=== PATIENT | female | born 1970 | race Caucasian/White ===

== ENCOUNTER 2022-08-17 13:55 | Inpatient (IN) | payer MEDICARE, OTHER ==
[2022-08-17] MEDS ORDERED: IPRATROPIUM-ALBUTEROL 3 ML NEB INHALATION STA (14:06)
[2022-08-17] MEDS ORDERED: ALPRAZolam 0.5 MG TAB PO STA (14:08)
--- NOTE | 2022-08-17 14:09 | ED ---
General Adult HPI - General Chief complaint: Shortness of Breath Stated complaint: SOB Time Seen by Provider: 08/17/22 13:57 Source: patient, RN notes reviewed Mode of arrival: EMS Limitations: no limitations - History of Present Illness Initial comments: Patient is a pleasant 52-year-old female presenting to the emergency department with concerns with difficulty breathing. Patient has history of COPD with similar symptoms. Patient does have cough with green sputum. No fever. Patient had slight Medrol and 2 nebulizer treatments by EMS prior to arrival with some improvement. Patient does feel anxious. - Related Data Home Medications Medication Instructions Recorded Confirmed ALPRAZolam [Xanax] 1 mg PO BID PRN 08/17/22 08/17/22 Albuterol Inhaler [Ventolin Hfa 1 - 2 puff INHALATION RT-Q4H PRN 08/17/22 Inhaler] Fexofenadine HCl [Elba Allergy] 180 mg PO DAILY PRN 08/17/22 08/17/22 Ipratropium-Albuterol Nebulize 3 ml INHALATION RT-QID PRN 08/17/22 08/17/22 [Duoneb 0.5 mg-3 mg/3 ml Soln] Mometasone Furoate [Nasonex 50 MCG] 1 - 2 spr EA NOSTRIL BID PRN 08/17/22 08/17/22 Montelukast [Singulair] 10 mg PO HS 08/17/22 08/17/22 Allergies Allergy/AdvReac Type Severity Reaction Status Date / Time No Known Allergies Allergy Verified 08/17/22 14:29 Review of Systems ROS Statement: Those systems with pertinent positive or pertinent negative responses have been documented in the HPI. ROS Other: All systems not noted in ROS Statement are negative. Constitutional: Denies: fever Eyes: Denies: eye pain ENT: Denies: ear pain Respiratory: Reports: as per HPI, cough, dyspnea Cardiovascular: Denies: chest pain Endocrine: Denies: fatigue Gastrointestinal: Denies: abdominal pain Genitourinary: Denies: dysuria Musculoskeletal: Denies: back pain Skin: Denies: rash Neurological: Denies: weakness Psychiatric: Reports: as per HPI, anxiety Past Medical History Past Medical History: Asthma, COPD History of Any Multi-Drug Resistant Organisms: None Reported Past Surgical History: Tonsillectomy, Tubal Ligation Past Psychological History: Anxiety Smoking Status: Never smoker Past Alcohol Use History: None Reported Past Drug Use History: None Reported General Exam Limitations: no limitations General appearance: alert Head exam: Present: normocephalic Eye exam: Present: normal appearance ENT exam: Present: normal oropharynx Neck exam: Present: normal inspection Respiratory exam: Present: wheezes, decreased breath sounds, other (Purse lipped breathing) Cardiovascular Exam: Present: tachycardia GI/Abdominal exam: Present: soft. Absent: tenderness Extremities exam: Present: normal inspection Neurological exam: Present: alert Psychiatric exam: Present: normal affect, normal mood Skin exam: Present: normal color Course Vital Signs 08/17/22 08/17/22 08/17/22 13:59 14:03 14:19 Temperature 98.5 F Pulse Rate 140 H 129 H Respiratory 32 H Rate Blood Pressure 137/102 O2 Sat by Pulse 89 L 94 L Oximetry Medical Decision Making - Medical Decision Making Patient reevaluated and mildly improved. Dr. Bianchi has been paged for admission covering hospital call. - Lab Data Result diagrams: 08/17/22 14:19 08/17/22 14:19 Lab Results 08/17/22 08/17/22 08/17/22 Range/Units 14:19 14:19 14:19 WBC 23.7 H (3.8-10.6) k/uL RBC 3.88 (3.80-5.40) m/uL Hgb 11.4 (11.4-16.0) gm/dL Hct 34.7 (34.0-46.0) % MCV 89.5 (80.0-100.0) fL MCH 29.4 (25.0-35.0) pg MCHC 32.8 (31.0-37.0) g/dL RDW 14.2 (11.5-15.5) % Plt Count 481 H (150-450) k/uL MPV 7.5 Neutrophils % 89 % Lymphocytes % 6 % Monocytes % 3 % Eosinophils % 1 % Basophils % 0 % Neutrophils # 21.2 H (1.3-7.7) k/uL Lymphocytes # 1.5 (1.0-4.8) k/uL Monocytes # 0.7 (0-1.0) k/uL Eosinophils # 0.2 (0-0.7) k/uL Basophils # 0.1 (0-0.2) k/uL Hypochromasia Slight PT 11.4 (9.0-12.0) sec INR 1.1 (<1.2) APTT 24.8 (22.0-30.0) sec Sodium 135 L (137-145) mmol/L Potassium 3.7 (3.5-5.1) mmol/L Chloride 95 L (98-107) mmol/L Carbon Dioxide 26 (22-30) mmol/L Anion Gap 14 mmol/L BUN 7 (7-17) mg/dL Creatinine 0.45 L (0.52-1.04) mg/dL Est GFR (CKD-EPI)AfAm >90 (>60 ml/min/1.73 sqM) Est GFR (CKD-EPI)NonAf >90 (>60 ml/min/1.73 sqM) Glucose 83 (74-99) mg/dL Plasma Lactic Acid Adrian (0.7-2.0) mmol/L Calcium 8.2 L (8.4-10.2) mg/dL Total Bilirubin 0.6 (0.2-1.3) mg/dL AST 28 (14-36) U/L ALT 32 (4-34) U/L Alkaline Phosphatase 108 (38-126) U/L Total Protein 6.2 L (6.3-8.2) g/dL Albumin 3.2 L (3.5-5.0) g/dL Coronavirus (PCR) (Not Detectd) Influenza Type A RNA (Not Detectd) Influenza Type B (PCR) (Not Detectd) 08/17/22 08/17/22 08/17/22 Range/Units 14:19 14:19 14:19 WBC (3.8-10.6) k/uL RBC (3.80-5.40) m/uL Hgb (11.4-16.0) gm/dL Hct (34.0-46.0) % MCV (80.0-100.0) fL MCH (25.0-35.0) pg MCHC (31.0-37.0) g/dL RDW (11.5-15.5) % Plt Count (150-450) k/uL MPV Neutrophils % % Lymphocytes % % Monocytes % % Eosinophils % % Basophils % % Neutrophils # (1.3-7.7) k/uL Lymphocytes # (1.0-4.8) k/uL Monocytes # (0-1.0) k/uL Eosinophils # (0-0.7) k/uL Basophils # (0-0.2) k/uL Hypochromasia PT (9.0-12.0) sec INR (<1.2) APTT (22.0-30.0) sec Sodium (137-145) mmol/L Potassium (3.5-5.1) mmol/L Chloride (98-107) mmol/L Carbon Dioxide (22-30) mmol/L Anion Gap mmol/L BUN (7-17) mg/dL Creatinine (0.52-1.04) mg/dL Est GFR (CKD-EPI)AfAm (>60 ml/min/1.73 sqM) Est GFR (CKD-EPI)NonAf (>60 ml/min/1.73 sqM) Glucose (74-99) mg/dL Plasma Lactic Acid Adrian 0.8 (0.7-2.0) mmol/L Calcium (8.4-10.2) mg/dL Total Bilirubin (0.2-1.3) mg/dL AST (14-36) U/L ALT (4-34) U/L Alkaline Phosphatase (38-126) U/L Total Protein (6.3-8.2) g/dL Albumin (3.5-5.0) g/dL Coronavirus (PCR) Not Detected (Not Detectd) Influenza Type A RNA Not Detected (Not Detectd) Influenza Type B (PCR) Not Detected (Not Detectd) - Radiology Data Radiology results: image reviewed (Chest x-ray shows interstitial changes) Disposition Clinical Impression: Acute exacerbation of chronic obstructive pulmonary disease Disposition: ADMITTED IP TO THIS HOSP Is patient prescribed a controlled substance at d/c from ED?: No Referrals: None,Stated [Primary Care Provider] - 1-2 days Time of Disposition: 15:17
[2022-08-17 14:38] LABS: Basophils # (A) 0.1 k/uL (0-0.2); Basophils % (A) 0 %; Eosinophils # (A) 0.2 k/uL (0-0.7); Eosinophils % (A) 1 %; HCT 34.7 % (34.0-46.0); HGB 11.4 gm/dL (11.4-16.0); Hypochromasia Slight; Lymphocytes # (A) 1.5 k/uL (1.0-4.8); Lymphocytes % (A) 6 %; MCH 29.4 pg (25.0-35.0); MCHC 32.8 g/dL (31.0-37.0); MCV 89.5 fL (80.0-100.0); Mean Platelet Volume 7.5; Monocytes # (A) 0.7 k/uL (0-1.0); Monocytes % (A) 3 %; Neutrophils # (A) 21.2 k/uL (1.3-7.7); Neutrophils % (A) 89 %; Platelet Count 481 k/uL (150-450); RBC 3.88 m/uL (3.80-5.40); RDW 14.2 % (11.5-15.5); WBC 23.7 k/uL (3.8-10.6)
[2022-08-17 14:49] LABS: INR 1.1 (<1.2); Partial Thromboplastin Time 24.8 sec (22.0-30.0); Prothrombin Time 11.4 sec (9.0-12.0)
--- NOTE | 2022-08-17 14:49 | XR ---
EXAMINATION TYPE: XR chest 2V DATE OF EXAM: 08/17/2022 2:42 PM COMPARISON: None TECHNIQUE: XR chest 2V Frontal and lateral views of the chest. CLINICAL INDICATION:Female, 52 years old with history of difficulty breathing; FINDINGS: Lungs/Pleura: Prominent interstitial lung markings are seen scattered throughout the lungs. No eviden ce of focal consolidation, pneumothorax or pleural effusion. Flattening of the hemidiaphragms. Pulmonary vascularity: Unremarkable. Heart/mediastinum: Cardiomediastinal silhouette is unremarkable. Musculoskeletal: Multiple level degenerative disc disease changes seen throughout the spine. Other findings: None Lines/Tubes: Endotracheal tube with distal tip xx cm above the miranda Nasogastric tube with its distal tip and side-port projecting under the diaphragm. IMPRESSION: 1. Prominent interstitial lung markings which can be seen with pulmonary edema versus atypical pneum onia versus other etiologies. 2. COPD changes.
[2022-08-17 14:50] LABS: ALT 32 U/L (4-34); AST 28 U/L (14-36); African American GFR (CKD) >90 (>60 ml/min/1.73 sqM); Albumin 3.2 g/dL (3.5-5.0); Alkaline Phosphatase 108 U/L (38-126); Anion Gap 14 mmol/L; Blood Urea Nitrogen 7 mg/dL (7-17); Calcium 8.2 mg/dL (8.4-10.2); Carbon Dioxide 26 mmol/L (22-30); Chloride 95 mmol/L (98-107); Glucose 83 mg/dL (74-99); Non-African American GFR(CKD) >90 (>60 ml/min/1.73 sqM); Potassium 3.7 mmol/L (3.5-5.1); Sodium 135 mmol/L (137-145); Total Bilirubin 0.6 mg/dL (0.2-1.3); Total Protein 6.2 g/dL (6.3-8.2)
[2022-08-17] MEDS ORDERED: IPRATROPIUM-ALBUTEROL 3 ML NEB INHALATION PRN ×2 (15:18→17:00)
[2022-08-17] MEDS ORDERED: ACETAMINOPHEN TAB 325 MG TAB PO PRN (15:18)
[2022-08-17] MEDS ORDERED: NALOXONE 0.4 MG/ML 1 ML VIAL IVP PRN (15:18)
[2022-08-17] MEDS: AZITHROMYCIN 500 MG in SODIUM CHLORIDE 0.9% 250 ML IVPB SCH (15:50)
[2022-08-17] MEDS ORDERED: LORATADINE 10 MG TAB PO PRN (17:00)
[2022-08-17] MEDS: methylPREDNISolone SOD SUCCI 125 MG/2 ML VIAL IV SCH (18:08)
[2022-08-17] MEDS: IPRATROPIUM-ALBUTEROL 3 ML NEB INHALATION SCH ×2 (19:47→19:48)
[2022-08-17] MEDS: MONTELUKAST 10 MG TAB PO SCH (21:33)
--- NOTE | 2022-08-17 22:20 | CT ---
EXAMINATION TYPE: CT chest wo con DATE OF EXAM: 08/17/2022 COMPARISON: None HISTORY: COPD CT DLP: 245 mGycm Automated exposure control for dose reduction was used. Images obtained from the thoracic inlet through the diaphragm with no contrast. There is coarse reticular nodular infiltrate in the periphery of both lungs. Heart size is normal. Th ere is pulmonary hyperinflation and flattening of the diaphragm. There is irregular nodular pleural t hickening in the lung apices bilaterally. There there is more noticeable patchy right middle lobe and lingula infiltrate. There is no mediastinal adenopathy. There are no hilar masses. No pleural effusion. The thoracic spine is intact. No compression fracture. Sternum is intact no evidence of rib fracture. IMPRESSION: Extensive reticular nodular infiltrates. COPD. There is probably pulmonary interstitial fibrosis. No discrete suspicious mass.
[2022-08-18] MEDS: methylPREDNISolone SOD SUCCI 125 MG/2 ML VIAL IV SCH ×4 (00:49→17:01)
--- NOTE | 2022-08-18 04:40 | HP ---
HISTORY AND PHYSICAL HISTORY OF PRESENT ILLNESS: A 52-year-old white female came in with concerns of difficulty breathing, history of COPD, green-yellow phlegm. No fever. She could barely breathe. Walked a few steps in the house with her home oxygen, she states, 10 years ago, at which time she came to the hospital. Does not have COVID. She is admitted with pneumonia. Chest x-ray shows possible pneumonia. HOME MEDICATIONS: 1. Xanax 1 mg b.i.d. 2. Elba 180 daily. 3. DuoNeb q.i.d. 4. Nasonex. 5. Singulair. REVIEW OF SYSTEMS: Fourteen-point review of systems otherwise is negative. PAST MEDICAL HISTORY: Asthma, COPD. PAST SURGICAL HISTORY: Tonsillectomy, tubal ligation. PHYSICAL EXAMINATION: VITAL SIGNS: Temperature 98.5, pulse 129 to 148, respiratory rate 30 to 32, blood pressure 137/102, O2 was 89% in remission, 94% on 2 L. GENERAL: She is a well-developed, well-nourished white female. LUNGS: Scattered rhonchi and wheeze. Shows some mild stridor. CARDIOVASCULAR: S1, S2. PSYCH: Slightly anxious. GI: Soft, nontender. EXTREMITIES: No cyanosis, clubbing, or edema. LABS: White count is 23.7, BUN is 7, creatinine 0.45, hemoglobin is 9.4, albumin is 3.2. ASSESSMENT: Acute chronic obstructive pulmonary disease exacerbation, probable pneumonia. CT scan of lungs. Continue broad-spectrum antibiotics and steroids. Pulmonary consult and Infectious Disease consult. MMODL / IJN: [id number] /
[2022-08-18] MEDS: IPRATROPIUM-ALBUTEROL 3 ML NEB INHALATION SCH ×4 (07:40→19:53)
[2022-08-18] MEDS: AZITHROMYCIN 500 MG in SODIUM CHLORIDE 0.9% 250 ML IVPB SCH (09:15)
[2022-08-18 10:37] LABS: Basophils # (A) 0.08 X 10*3/uL (0.00-0.10); Basophils % (A) 0.4 %; Eosinophils # (A) 0 X 10*3/uL (0.04-0.35); Eosinophils % (A) 0 %; HCT 38.4 % (37.2-46.3); HGB 11.5 g/dL (12.0-15.0); Immature Grans, Automated 2.1 %; Lymphocytes # (A) 1.43 X 10*3/uL (0.90-5.00); MCH 27.7 pg (27.0-32.0); MCHC 29.9 g/dL (32.0-37.0); MCV 92.5 fL (80.0-97.0); Mean Platelet Volume 10.2 fL (9.5-12.2); Monocytes # (A) 0.18 X 10*3/uL (0.20-1.00); Monocytes % (A) 0.9 %; NRBC Per 100 WBC 0 /100 WBCS (0.0-0.0); Neutrophils # (A) 18.45 X 10*3/uL (1.80-7.70); Neutrophils % (A) 89.6 %; Platelet Count 535 X 10*3/uL (140-440); RBC 4.15 X 10*6/uL (4.10-5.20); RDW 14.8 % (11.5-14.5); WBC 20.57 X 10*3/uL (4.50-10.00)
[2022-08-18 10:52] LABS: ALT 40 U/L (8-44); AST 36 U/L (13-35); Albumin 3.5 g/dL (3.8-4.9); Albumin/Globulin Ratio 1.04 (1.60-3.17); Alkaline Phosphatase 124 U/L (41-126); BUN/Creat Ratio 18.88 Ratio (12.00-20.00); Blood Urea Nitrogen 11.8 mg/dL (9.0-27.0); Calcium 9.4 mg/dL (8.7-10.3); Carbon Dioxide 28.3 mmol/L (20.0-27.5); Chloride 97 mmol/L (96-109); Globulin 3.4 g/dL (1.6-3.3); Glucose 119 mg/dL (70-110); Non-African American GFR(CKD) 102.7 (60.0-200.0); Potassium 5.1 mmol/L (3.5-5.5); Sodium 137 mmol/L (135-145); Total Bilirubin <0.15 mg/dL (0.30-1.20); Total Protein 6.8 g/dL (6.2-8.2)
[2022-08-18] MEDS ORDERED: VANCOMYCIN IV PER PHARMACY 1 EACH MISC MISCELLANE PRN (11:10)
[2022-08-18] MEDS ORDERED: VANCOMYCIN 1,250 MG in SODIUM CHLORIDE 0.9% 250 ML IVPB SCH (12:00)
[2022-08-18] MEDS: ALPRAZolam 1 MG TAB PO PRN (13:12)
--- NOTE | 2022-08-18 15:22 | P.CNPUL ---
History of Present Illness Consult date: 08/18/22 Requesting physician: Qasim Bianchi Reason for consult: dyspnea, COPD Chief complaint: Shortness of breath, cough, congestion History of present illness: This is a very pleasant 52-year-old female patient with no current primary care provider. She has a history of COPD, former smoking. She does have a nebulizer at home and albuterol rescue inhaler. This was provided by an urgent care visit in the past. Recently she had been exposed to many grandchildren who have been coughing and congested. She developed increasing shortness of breath, cough congestion dyspnea on exertion. Productive cough of green thick sputum. She presented to the emergency room yesterday for the same. Chest x-ray reveals prominent interstitial lung markings scattered throughout the lungs. No evidence of focal consolidation, pneumothorax or pleural effusion. Flattening of the hemidiaphragms with COPD changes. Computed tomography scan of the chest without contrast revealed extensive reticulonodular infiltrates. COPD. Possible pulmonary interstitial fibrosis. No discrete suspicious masses. Blood cultures are revealing no growth. One set of blood cultures was positive for coag-negative staph. White count 20.5. Hemoglobin 11.5. Platelets 535. Sodium 137. Potassium 5.1. BUN 12. Creatinine 0.6. AST 26. ALT 40. Pro- calcitonin 0.15. Chronic virus not detected. Influenza screen negative. She was initiated on vancomycin and DuoNeb inhalations. She is seen today in consultation on the regular medical floor. She is currently resting comfortably in bed. Awake and alert in no acute distress. She is maintaining O2 saturations in the mid 90s on 3 L/m per nasal cannula. Afebrile. Hemodynamically stable. Feeling a bit better today compared to yesterday. Not quite back to her baseline. Review of Systems REVIEW OF SYSTEMS: CONSTITUTIONAL: Denies any recent significant weight loss or weight gain. EYES: Denies change in vision. EARS, NOSE, MOUTH, THROAT: Denies headaches, denies sore throat. CARDIOVASCULAR: Denies chest pain, palpitations or syncopal episodes. RESPIRATORY: Positive for shortness of breath, cough, congestion no hemoptysis. GASTROINTESTINAL: Denies change in appetite, denies abdominal pain GENITOURINARY: Denies hematuria, denies infections. MUSKULOSKELETAL: Denies pain, denies swelling. INTEGUMENTARY: Denies rash, denies eczema. NEUROLOGICAL: Denies recent memory loss, no recent seizure activity. PSYCHIATRIC: Denies anxiety, denies depression. HEMATOLOGIC/LYMPHATIC: Denies anemia, denies enlarged lymph nodes. Past Medical History Past Medical History: Asthma, COPD History of Any Multi-Drug Resistant Organisms: None Reported Past Surgical History: Tonsillectomy, Tubal Ligation Past Anesthesia/Blood Transfusion Reactions: No Reported Reaction Past Psychological History: Anxiety Smoking Status: Former smoker Past Alcohol Use History: None Reported Past Drug Use History: None Reported Medications and Allergies Home Medications Medication Instructions Recorded Confirmed Type ALPRAZolam [Xanax] 1 mg PO BID PRN 08/17/22 08/17/22 History Albuterol Inhaler [Ventolin Hfa 1 - 2 puff INHALATION RT-Q4H PRN 08/17/22 08/17/22 History Inhaler] Fexofenadine HCl [Elba Allergy] 180 mg PO DAILY PRN 08/17/22 08/17/22 History Ipratropium-Albuterol Nebulize 3 ml INHALATION RT-QID PRN 08/17/22 08/17/22 History [Duoneb 0.5 mg-3 mg/3 ml Soln] Mometasone Furoate [Nasonex 50 MCG] 1 - 2 spr EA NOSTRIL BID PRN 08/17/22 08/17/22 History Montelukast [Singulair] 10 mg PO HS 08/17/22 08/17/22 History Allergies Allergy/AdvReac Type Severity Reaction Status Date / Time No Known Allergies Allergy Verified 08/17/22 14:29 Physical Exam Vitals: Vital Signs Temp Pulse Pulse Pulse Resp BP BP 08/18/22 13:57 97.8 F 120 H 18 121/69 08/18/22 11:53 96 08/18/22 11:48 92 08/18/22 07:56 96 08/18/22 07:46 97.4 F L 88 18 114/77 08/18/22 07:43 88 08/18/22 02:38 97.3 F L 84 17 147/71 08/17/22 21:00 97.5 F L 104 H 19 113/76 08/17/22 20:24 97.1 F L 105 H 19 107/68 08/17/22 20:03 106 H 08/17/22 19:49 102 H 08/17/22 17:33 111 H 20 110/77 08/17/22 15:52 120 H 24 121/73 Pulse Ox 08/18/22 13:57 95 08/18/22 11:53 08/18/22 11:48 08/18/22 07:56 08/18/22 07:46 96 08/18/22 07:43 97 08/18/22 02:38 98 08/17/22 21:00 96 08/17/22 20:24 96 08/17/22 20:03 08/17/22 19:49 08/17/22 17:33 94 L 08/17/22 15:52 95 Intake and Output 08/18/22 08/18/22 08/18/22 06:59 14:59 22:59 Other: # Voids 2 # Bowel Movements 1 GENERAL EXAM: Alert, pleasant 51-year-old female, on 3 L nasal cannula, comfortable in no apparent distress. HEAD: Normocephalic. EYES: Normal reaction of pupils, equal size. NOSE: Clear with pink turbinates. THROAT: No erythema or exudates. NECK: No masses, no JVD. CHEST: No chest wall deformity. LUNGS: Equal air entry with bilateral end-expiratory wheeze, few scattered rhonchi, diminished. CVS: S1 and S2 normal with no audible murmur, regular rhythm. ABDOMEN: No hepatosplenomegaly, normal bowel sounds, no guarding or rigidity. SPINE: No scoliosis or deformity SKIN: No rashes CENTRAL NERVOUS SYSTEM: No focal deficits, tone is normal in all 4 extremities. EXTREMITIES: There is no peripheral edema. No clubbing, no cyanosis. Peripheral pulses are intact. Results - Laboratory Findings CBC and BMP: 08/18/22 06:47 08/18/22 06:47 PT/INR, D-dimer PT 11.4 sec (9.0-12.0) 08/17/22 14:19 INR 1.1 (<1.2) 08/17/22 14:19 Abnormal lab findings: Abnormal Labs 08/17/22 08/17/22 08/17/22 14:19 14:19 14:19 WBC 23.7 H Hgb MCHC RDW Plt Count 481 H Immature Gran # Neutrophils # 21.2 H Monocytes # Eosinophils # Sodium 135 L Chloride 95 L Carbon Dioxide Creatinine 0.45 L Glucose Calcium 8.2 L Total Bilirubin AST Total Protein 6.2 L Albumin 3.2 L Globulin Albumin/Globulin Ratio Procalcitonin 0.15 H 08/18/22 08/18/22 06:47 06:47 WBC 20.57 H Hgb 11.5 L MCHC 29.9 L RDW 14.8 H Plt Count 535 H Immature Gran # 0.43 H Neutrophils # 18.45 H Monocytes # 0.18 L Eosinophils # 0 L Sodium Chloride Carbon Dioxide 28.3 H Creatinine Glucose 119 H Calcium Total Bilirubin <0.15 L AST 36 H Total Protein Albumin 3.5 L Globulin 3.4 H Albumin/Globulin Ratio 1.04 L Procalcitonin - Diagnostic Findings Chest x-ray: image reviewed CT scan - chest: image reviewed Assessment and Plan Assessment: Acute exacerbation of chronic obstructive pulmonary disease, complicated by purulent tracheobronchitis versus community-acquired pneumonia. Procalcitonin 0.15 Extensive reticulonodular infiltrates, possible underlying pulmonary interstitial fibrosis. No discrete suspicious mass One blood culture positive for coagulase-negative staph Former smoker Anxiety Plan: The patient was seen and evaluated Chest x-ray, CAT scan, labs and medications reviewed Continue with ceftriaxone and azithromycin Continue DuoNeb inhalations, add Symbicort, IV Solu-Medrol We'll plan for follow-up CAT scan of the chest in 3 months Plan for pulmonary function testing in the office We'll continue to follow and make further recommendations based on her clinical status I have personally seen and examined the patient, performed the documentation and the assessment and plan as written. Number of minutes spent on the visit: 20.
[2022-08-18] MEDS: SYMBICORT 160-4.5 MCG INHALER INHALATION SCH (19:53)
[2022-08-18] MEDS: MONTELUKAST 10 MG TAB PO SCH (20:55)
--- NOTE | 2022-08-18 23:00 | P.CONS ---
History of Present Illness - Reason for Consult Consult date: 08/18/22 Leukocytosis Requesting physician: Qasim Bianchi - Chief Complaint Shortness of breath and cough x few days - History of Present Illness Patient is a 52-year-old female with a past medical he significant for COPD patient presenting to the hospital for evaluation of difficulty breathing symptom has been going on for more than a week patient also have a cough which is moderate intensity has been constant with any sputum patient mention she did do some nebulizer treatment without any improvement with worsening of her symptoms the patient did present to the hospital on arrival to the ER the patient was afebrile and no fever have been recorded subsequently patient did remarkably 2000 with a left shift creatinine has been normal liver enzymes are normal patient did have a negative influenza and COVID PCR patient did have a chest x-ray prominent interstitial markings question of pulmonary edema versus atypical pneumonia COPD changes CT of the chest extensive reticulonodular infiltrate pulmonary fibrosis, infectious was consulted because of the positive blood cultures with ID sensitivities pending Review of Systems Positive point has been mentioned in the HPI rest of the systems are negative Past Medical History Past Medical History: Asthma, COPD History of Any Multi-Drug Resistant Organisms: None Reported Past Surgical History: Tonsillectomy, Tubal Ligation Past Anesthesia/Blood Transfusion Reactions: No Reported Reaction Past Psychological History: Anxiety Smoking Status: Former smoker Past Alcohol Use History: None Reported Past Drug Use History: None Reported Medications and Allergies Home Medications Medication Instructions Recorded Confirmed Type ALPRAZolam [Xanax] 1 mg PO BID PRN 08/17/22 08/17/22 History Albuterol Inhaler [Ventolin Hfa 1 - 2 puff INHALATION RT-Q4H PRN 08/17/22 08/17/22 History Inhaler] Fexofenadine HCl [Elba Allergy] 180 mg PO DAILY PRN 08/17/22 08/17/22 History Ipratropium-Albuterol Nebulize 3 ml INHALATION RT-QID PRN 08/17/22 08/17/22 History [Duoneb 0.5 mg-3 mg/3 ml Soln] Mometasone Furoate [Nasonex 50 MCG] 1 - 2 spr EA NOSTRIL BID PRN 08/17/22 08/17/22 History Montelukast [Singulair] 10 mg PO HS 08/17/22 08/17/22 History Allergies Allergy/AdvReac Type Severity Reaction Status Date / Time No Known Allergies Allergy Verified 08/17/22 14:29 Physical Exam Vitals: Vital Signs Temp Pulse Pulse Pulse Resp BP BP 08/18/22 07:56 96 08/18/22 07:46 97.4 F L 88 18 114/77 08/18/22 07:43 88 08/18/22 02:38 97.3 F L 84 17 147/71 08/17/22 21:00 97.5 F L 104 H 19 113/76 08/17/22 20:24 97.1 F L 105 H 19 107/68 08/17/22 20:03 106 H 08/17/22 19:49 102 H 08/17/22 17:33 111 H 20 110/77 08/17/22 15:52 120 H 24 121/73 08/17/22 14:19 129 H 08/17/22 14:03 08/17/22 13:59 98.5 F 140 H 32 H 137/102 Pulse Ox 08/18/22 07:56 08/18/22 07:46 96 08/18/22 07:43 97 08/18/22 02:38 98 08/17/22 21:00 96 08/17/22 20:24 96 08/17/22 20:03 08/17/22 19:49 08/17/22 17:33 94 L 08/17/22 15:52 95 08/17/22 14:19 08/17/22 14:03 94 L 08/17/22 13:59 89 L Intake and Output 08/17/22 08/18/22 08/18/22 22:59 06:59 14:59 Intake Total 10 Balance 10 Intake: IV 10 Invasive Line 1 10 Other: Voiding Method Toilet # Voids 2 # Bowel Movements 1 Weight 62.142 kg GENERAL DESCRIPTION: Middle-aged female lying in bed, no distress. No tachypnea or accessory muscle of respiration use. HEENT: Shows Pallor , no scleral icterus. Oral mucous membrane is dry. No pharyngeal erythema or thrush NECK: Trachea central, no thyromegaly. LUNGS: Unlabored breathing. Coarse breath sounds bilaterally. HEART: S1, S2, regular rate and rhythm. No loud murmur ABDOMEN: Soft, no tenderness , guarding or rigidity, no organomegaly EXTREMITIES: No edema of feet. SKIN: No rash, no masses palpable. NEUROLOGICAL: The patient is awake, alert, oriented x3, mood and affect normal. Results CBC & Chem 7: 08/18/22 06:47 08/19/22 06:35 Labs: Abnormal Lab Results - Last 24 Hours (Table) 08/17/22 08/17/22 08/17/22 Range/Units 14:19 14:19 14:19 WBC 23.7 H (3.8-10.6) k/uL Hgb (12.0-15.0) g/dL MCHC (32.0-37.0) g/dL RDW (11.5-14.5) % Plt Count 481 H (150-450) k/uL Immature Gran # (0.00-0.04) X 10*3/uL Neutrophils # 21.2 H (1.3-7.7) k/uL Monocytes # (0.20-1.00) X 10*3/uL Eosinophils # (0.04-0.35) X 10*3/uL Sodium 135 L (137-145) mmol/L Chloride 95 L (98-107) mmol/L Carbon Dioxide (20.0-27.5) mmol/L Creatinine 0.45 L (0.52-1.04) mg/dL Glucose (70-110) mg/dL Calcium 8.2 L (8.4-10.2) mg/dL Total Bilirubin (0.30-1.20) mg/dL AST (13-35) U/L Total Protein 6.2 L (6.3-8.2) g/dL Albumin 3.2 L (3.5-5.0) g/dL Globulin (1.6-3.3) g/dL Albumin/Globulin Ratio (1.60-3.17) g/dL Procalcitonin 0.15 H (0.02-0.09) ng/mL 08/18/22 08/18/22 Range/Units 06:47 06:47 WBC 20.57 H (3.8-10.6) k/uL Hgb 11.5 L (12.0-15.0) g/dL MCHC 29.9 L (32.0-37.0) g/dL RDW 14.8 H (11.5-14.5) % Plt Count 535 H (150-450) k/uL Immature Gran # 0.43 H (0.00-0.04) X 10*3/uL Neutrophils # 18.45 H (1.3-7.7) k/uL Monocytes # 0.18 L (0.20-1.00) X 10*3/uL Eosinophils # 0 L (0.04-0.35) X 10*3/uL Sodium (137-145) mmol/L Chloride (98-107) mmol/L Carbon Dioxide 28.3 H (20.0-27.5) mmol/L Creatinine (0.52-1.04) mg/dL Glucose 119 H (70-110) mg/dL Calcium (8.4-10.2) mg/dL Total Bilirubin <0.15 L (0.30-1.20) mg/dL AST 36 H (13-35) U/L Total Protein (6.3-8.2) g/dL Albumin 3.5 L (3.5-5.0) g/dL Globulin 3.4 H (1.6-3.3) g/dL Albumin/Globulin Ratio 1.04 L (1.60-3.17) g/dL Procalcitonin (0.02-0.09) ng/mL Microbiology - Last 24 Hours (Table) 08/17/22 14:19 Blood Culture Gram Stain - Preliminary Blood 08/17/22 14:19 Blood Culture Gram Stain - Preliminary Blood 08/17/22 14:19 Blood Culture - Final Blood 08/17/22 14:19 Blood Culture - Final Blood Assessment and Plan (1) Bacteremia Current Visit: Yes Status: Acute Code(s): R78.81 - BACTEREMIA SNOMED Code(s): 6224147 (2) Acute exacerbation of chronic obstructive pulmonary disease Current Visit: Yes Status: Acute Code(s): J44.1 - CHRONIC OBSTRUCTIVE PULMONARY DISEASE W (ACUTE) EXACERBATION SNOMED Code(s): 822853875 Plan: 1patient with a positive blood culture with gram-positive cocci in this patient was in the hospital with increasing shortness of breath and cough and some greenish sputum production concerning for possible pneumonia source however if finalized as coagulase-negative staph may be disregarded as a skin contamination. 2-we will obtain a sputum for gram stain and culture and repeat blood cultures document clearance of bacteremia 3-vancomycin pharmacy to dose target trough of 15 while watching kidney function and vancomycin trough closely We will follow on clinical condition and cultures to further adjust medication if needed Thank you for this consultation will follow this patient along with you Time with Patient: Greater than 30
[2022-08-19] MEDS: ALPRAZolam 1 MG TAB PO PRN (00:31)
[2022-08-19] MEDS: methylPREDNISolone SOD SUCCI 125 MG/2 ML VIAL IV SCH ×5 (00:31→23:17)
[2022-08-19] MEDS: SYMBICORT 160-4.5 MCG INHALER INHALATION SCH ×2 (07:13→20:53)
[2022-08-19] MEDS: IPRATROPIUM-ALBUTEROL 3 ML NEB INHALATION SCH ×4 (07:13→20:53)
[2022-08-19 07:15] LABS: African American GFR (CKD) >90 (>60 ml/min/1.73 sqM); Non-African American GFR(CKD) >90 (>60 ml/min/1.73 sqM)
[2022-08-19] MEDS: AZITHROMYCIN 500 MG in SODIUM CHLORIDE 0.9% 250 ML IVPB SCH (10:02)
[2022-08-19] MEDS: ALPRAZolam 1 MG TAB PO SCH ×3 (10:17→20:15)
[2022-08-19 10:39] LABS: C Reactive Protein 12.9 mg/dL (<1.0)
--- NOTE | 2022-08-19 12:19 | P.PN ---
Subjective Progress Note Date: 08/19/22 This is a very pleasant 52-year-old female patient with no current primary care provider. She has a history of COPD, former smoking. She does have a nebulizer at home and albuterol rescue inhaler. This was provided by an urgent care visit in the past. Recently she had been exposed to many grandchildren who have been coughing and congested. She developed increasing shortness of breath, cough congestion dyspnea on exertion. Productive cough of green thick sputum. She presented to the emergency room yesterday for the same. Chest x-ray reveals prominent interstitial lung markings scattered throughout the lungs. No evidence of focal consolidation, pneumothorax or pleural effusion. Flattening of the hemidiaphragms with COPD changes. Computed tomography scan of the chest without contrast revealed extensive reticulonodular infiltrates. COPD. Possible pulmonary interstitial fibrosis. No discrete suspicious masses. Blood cultures are revealing no growth. One set of blood cultures was positive for coag-negative staph. White count 20.5. Hemoglobin 11.5. Platelets 535. Sodium 137. Potassium 5.1. BUN 12. Creatinine 0.6. AST 26. ALT 40. Pro- calcitonin 0.15. Chronic virus not detected. Influenza screen negative. She was initiated on vancomycin and DuoNeb inhalations. She is seen today in consultation on the regular medical floor. She is currently resting comfortably in bed. Awake and alert in no acute distress. She is maintaining O2 saturations in the mid 90s on 3 L/m per nasal cannula. Afebrile. Hemodynamically stable. Feeling a bit better today compared to yesterday. Not quite back to her baseline. The patient is seen today to 2021 in follow-up on the regular medical floor. She is awake and alert in no acute distress. Breathing a bit better today compared to yesterday. Not quite back to her baseline. Maintaining O2 saturations in the 90s on 3 L/m per nasal cannula. She remains quite anxious stating that she does have issues with anxiety. Creatinine 0.53. C-reactive protein 12.9. Pro-calcitonin 0.10. Blood cultures reveal coagulase negative staph. She is continued on ceftriaxone and azithromycin. Maintained on Symbicort, DuoNeb inhalations, IV Solu-Medrol, Singulair. Xanax as needed. Objective - Vital Signs Vital signs: Vital Signs Temp 97.5 F L 10/19/22 08:00 Pulse 94 08/19/22 11:13 Resp 17 08/19/22 08:00 BP 129/87 08/19/22 08:00 Pulse Ox 95 08/19/22 09:00 FiO2 Intake & Output 08/18/22 08/19/22 08/19/22 18:59 06:59 18:59 Other: # Voids 2 3 - Exam GENERAL EXAM: Alert, very pleasant 52-year-old female, 3 L nasal cannula, anxious, comfortable in no apparent distress. HEAD: Normocephalic. EYES: Normal reaction of pupils, equal size. NOSE: Clear with pink turbinates. THROAT: No erythema or exudates. NECK: No masses, no JVD. CHEST: No chest wall deformity. LUNGS: Equal air entry with bilateral end expiratory wheeze, diminished. CVS: S1 and S2 normal with no audible murmur, regular rhythm. ABDOMEN: No hepatosplenomegaly, normal bowel sounds, no guarding or rigidity. SPINE: No scoliosis or deformity SKIN: No rashes CENTRAL NERVOUS SYSTEM: No focal deficits, tone is normal in all 4 extremities. EXTREMITIES: There is no peripheral edema. No clubbing, no cyanosis. Per ipheral pulses are intact. - Labs CBC & Chem 7: 08/18/22 06:47 08/19/22 06:35 Labs: Abnormal Lab Results - Last 24 Hours (Table) 08/19/22 08/19/22 Range/Units 06:35 06:35 C-Reactive Protein 12.9 H (<1.0) mg/dL Procalcitonin 0.10 H (0.02-0.09) ng/mL Microbiology - Last 24 Hours (Table) 08/17/22 14:19 Blood Culture Gram Stain - Preliminary Blood Blood Culture - Preliminary Coagulase Negative Staph 08/17/22 14:19 Blood Culture Gram Stain - Preliminary Blood Blood Culture - Preliminary Coagulase Negative Staph Assessment and Plan Assessment: Acute exacerbation of chronic obstructive pulmonary disease, complicated by purulent tracheobronchitis versus community-acquired pneumonia. Procalcitonin 0.10 Extensive reticulonodular infiltrates, possible underlying pulmonary interstitial fibrosis. No discrete suspicious mass Blood culture positive for coagulase-negative staph, currently on ceftriaxone and azithromycin Former smoker Anxiety Plan: The patient was seen and evaluated Labs and medications reviewed Continue with ceftriaxone and azithromycin Continue DuoNeb inhalations, Symbicort, IV Solu-Medrol Increase Xanax, scheduled Improved but not quite back to her baseline Probable discharge in the a.m. We'll continue to follow I have personally seen and examined the patient, performed the documentation and the assessment and plan as written. Number of minutes spent on the visit: 10.
[2022-08-19] MEDS ORDERED: ALPRAZolam 1 MG TAB PO SCH (16:00)
[2022-08-19] MEDS: MONTELUKAST 10 MG TAB PO SCH (20:15)
[2022-08-19] MEDS: guaiFENesin-DM 100-10MG/5ML 10 ML CUP PO PRN (23:50)
--- NOTE | 2022-08-20 01:57 | PN ---
PROGRESS NOTE SUBJECTIVE: A white female whose CAT scan was reviewed, shows nodular pneumonia. Remains on azithromycin, Rocephin. OBJECTIVE: CARDIOVASCULAR: S1-S2. LUNGS: Scattered rhonchi and wheeze. HEMATOLOGY: Negative Homans. PSYCH: Fair mood and affect. ASSESSMENT: 1. Pneumonia . 2. Acute hypoxemic respiratory failure. 3. Chronic obstructive pulmonary disease. Continue with steroids, IV antibiotics updrafts. Wean off oxygen. She is down from 5 L to 3 L. Possibly discharge home once weaned off oxygen. MMODL / IJN: [id number] /
[2022-08-20] MEDS: methylPREDNISolone SOD SUCCI 125 MG/2 ML VIAL IV SCH ×4 (05:08→23:25)
--- NOTE | 2022-08-20 08:51 | P.PN ---
Subjective Progress Note Date: 08/19/22 Principal diagnosis: Pneumonia and positive blood culture Patient is a 52-year-old female past medical history significant for COPD presented to hospital with increasing shortness of breath and cough, patient did have CT of the chest with radicular infiltrate concerning for possible pneumonia did have a positive blood culture which was subsequent finalize as coagulase negative staph. On today's evaluation that is 08/19/2022, the patient denies having any fevers or any chills the patient is breathing more comfortably denies having any chest pain but did have a cough occasionally sputum no hemoptysis and no abdominal pain no diarrhea Objective - Vital Signs Vital signs: Vital Signs Temp 97.5 F L 08/19/22 08:00 Pulse 94 08/19/22 11:13 Resp 17 08/19/22 08:00 BP 129/87 08/19/22 08:00 Pulse Ox 95 08/19/22 09:00 FiO2 Intake & Output 08/18/22 08/19/22 08/19/22 18:59 06:59 18:59 Other: # Voids 2 3 - Exam GENERAL DESCRIPTION: Middle-age female lying in bed in no distress RESPIRATORY SYSTEM: Unlabored breathing , coarse breath sounds bilaterally no wheezes HEART: S1 S2 regular rate and rhythm , ABDOMEN: Soft , no tenderness EXTREMITIES: No edema feet - Labs CBC & Chem 7: 08/18/22 06:47 08/19/22 06:35 Labs: Abnormal Lab Results - Last 24 Hours (Table) 08/19/22 08/19/22 Range/Units 06:35 06:35 C-Reactive Protein 12.9 H (<1.0) mg/dL Procalcitonin 0.10 H (0.02-0.09) ng/mL Microbiology - Last 24 Hours (Table) 08/17/22 14:19 Blood Culture Gram Stain - Preliminary Blood Blood Culture - Preliminary Coagulase Negative Staph 08/17/22 14:19 Blood Culture Gram Stain - Preliminary Blood Blood Culture - Preliminary Coagulase Negative Staph Assessment and Plan (1) Acute exacerbation of chronic obstructive pulmonary disease Current Visit: Yes Status: Acute Code(s): J44.1 - CHRONIC OBSTRUCTIVE PULMONARY DISEASE W (ACUTE) EXACERBATION SNOMED Code(s): 285486897 Plan: 1patient with a positive blood culture with gram-positive cocci in this patient was in the hospital with increasing shortness of breath and cough and some greenish sputum production concerning for possible pneumonia however blood culture has been finalized as coagulase-negative staph more likely contamination and vancomycin has been discontinued 2- sputum culture has been obtained which are currently pending blood culture repeat so far negative 3patient to continue with Rocephin and Zithromax while waiting for the culture finalized Time with Patient: Less than 30
[2022-08-20] MEDS: IPRATROPIUM-ALBUTEROL 3 ML NEB INHALATION SCH ×4 (09:11→20:09)
[2022-08-20] MEDS: SYMBICORT 160-4.5 MCG INHALER INHALATION SCH ×2 (09:11→20:09)
[2022-08-20] MEDS: AZITHROMYCIN 500 MG in SODIUM CHLORIDE 0.9% 250 ML IVPB SCH (09:20)
[2022-08-20] MEDS: ALPRAZolam 1 MG TAB PO SCH ×3 (09:20→22:22)
--- NOTE | 2022-08-20 11:17 | P.PN ---
Subjective Progress Note Date: 08/20/22 This is a very pleasant 52-year-old female patient with no current primary care provider. She has a history of COPD, former smoking. She does have a nebulizer at home and albuterol rescue inhaler. This was provided by an urgent care visit in the past. Recently she had been exposed to many grandchildren who have been coughing and congested. She developed increasing shortness of breath, cough congestion dyspnea on exertion. Productive cough of green thick sputum. She presented to the emergency room yesterday for the same. Chest x-ray reveals prominent interstitial lung markings scattered throughout the lungs. No evidence of focal consolidation, pneumothorax or pleural effusion. Flattening of the hemidiaphragms with COPD changes. Computed tomography scan of the chest without contrast revealed extensive reticulonodular infiltrates. COPD. Possible pulmonary interstitial fibrosis. No discrete suspicious masses. Blood cultures are revealing no growth. One set of blood cultures was positive for coag-negative staph. White count 20.5. Hemoglobin 11.5. Platelets 535. Sodium 137. Potassium 5.1. BUN 12. Creatinine 0.6. AST 26. ALT 40. Pro- calcitonin 0.15. Chronic virus not detected. Influenza screen negative. She was initiated on vancomycin and DuoNeb inhalations. She is seen today in consultation on the regular medical floor. She is currently resting comfortably in bed. Awake and alert in no acute distress. She is maintaining O2 saturations in the mid 90s on 3 L/m per nasal cannula. Afebrile. Hemodynamically stable. Feeling a bit better today compared to yesterday. Not quite back to her baseline. The patient is seen today to 2021 in follow-up on the regular medical floor. She is awake and alert in no acute distress. Breathing a bit better today compared to yesterday. Not quite back to her baseline. Maintaining O2 saturations in the 90s on 3 L/m per nasal cannula. She remains quite anxious stating that she does have issues with anxiety. Creatinine 0.53. C-reactive protein 12.9. Pro-calcitonin 0.10. Blood cultures reveal coagulase negative staph. She is continued on ceftriaxone and azithromycin. Maintained on Symbicort, DuoNeb inhalations, IV Solu-Medrol, Singulair. Xanax as needed. The patient is seen today 08/20/2022 in follow-up on the regular medical floor. She is currently resting comfortably in bed. Awake and alert in no acute distress. Less anxious today. Maintaining good O2 saturations in the 90s on 2 L/m per nasal cannula. She's afebrile. Hemodynamically stable. Sputum culture pending. Blood culture positive for coag-negative staph. She remains on ceftriaxone and azithromycin. Continued on Symbicort, DuoNeb inhalations, IV Solu-Medrol. Objective - Vital Signs Vital signs: Vital Signs Temp 97.7 F 08/20/22 07:46 Pulse 96 08/20/22 09:22 Resp 20 08/20/22 10:26 BP 136/86 08/20/22 07:46 Pulse Ox 93 L 08/20/22 07:46 FiO2 Intake & Output 08/19/22 08/20/22 08/20/22 18:59 06:59 18:59 Output Total 0 Balance 0 Output: Urine 0 Other: Voiding Method Toilet Toilet # Voids 4 - Exam GENERAL EXAM: Alert, pleasant 52-year-old female, 2 L nasal cannula, anxious, comfortable in no apparent distress. HEAD: Normocephalic. EYES: Normal reaction of pupils, equal size. NOSE: Clear with pink turbinates. THROAT: No erythema or exudates. NECK: No masses, no JVD. CHEST: No chest wall deformity. LUNGS: Equal air entry with bilateral end expiratory wheeze, diminished. CVS: S1 and S2 normal with no audible murmur, regular rhythm. ABDOMEN: No hepatosplenomegaly, normal bowel sounds, no guarding or rigidity. SPINE: No scoliosis or deformity SKIN: No rashes CENTRAL NERVOUS SYSTEM: No focal deficits, tone is normal in all 4 extremities. EXTREMITIES: There is no peripheral edema. No clubbing, no cyanosis. Peripheral pulses are intact. - Labs CBC & Chem 7: 08/18/22 06:47 08/19/22 06:35 Labs: Abnormal Lab Results - Last 24 Hours (Table) 08/19/22 Range/Units 06:35 Procalcitonin 0.10 H (0.02-0.09) ng/mL Microbiology - Last 24 Hours (Table) 08/19/22 16:55 Gram Stain - Preliminary Sputum Sputum Culture - Preliminary 08/17/22 14:19 Blood Culture Gram Stain - Preliminary Blood Blood Culture - Preliminary Coagulase Negative Staph Assessment and Plan Assessment: Acute exacerbation of chronic obstructive pulmonary disease, complicated by purulent tracheobronchitis versus community-acquired pneumonia. Procalcitonin 0.10 Extensive reticulonodular infiltrates, possible underlying pulmonary interstitial fibrosis. No discrete suspicious mass Blood culture positive for coagulase-negative staph, currently on ceftriaxone and azithromycin Former smoker Anxiety Plan: The patient was seen and evaluated Medications reviewed Continue with ceftriaxone and azithromycin Awaiting final blood culture, sputum culture pending Continue DuoNeb inhalations, Symbicort, IV Solu-Medrol Improved but not quite back to her baseline We'll continue to follow I have personally seen and examined the patient, performed the documentation and the assessment and plan as written. Number of minutes spent on the visit: 10.
[2022-08-20] MEDS: MONTELUKAST 10 MG TAB PO SCH (22:22)
[2022-08-20] MEDS: guaiFENesin-DM 100-10MG/5ML 10 ML CUP PO PRN (23:25)
--- NOTE | 2022-08-21 00:16 | PN ---
PROGRESS NOTE SUBJECTIVE: A white female came in with multilobular pneumonia, on broad-spectrum antibiotics. She is improving daily. No discrete masses on the lungs. She has pulmonary interstitial fibrosis, coagulase-negative Staph x2 on the blood cultures. White count 20.5. Procalcitonin 0.15. Influenza is negative. She is on vancomycin, DuoNeb. She feels better. OBJECTIVE: VITAL SIGNS: Temperature 97.5, pulse 94, respiratory rate 16 to 18, blood pressure 129/87, O2 of 98% on 3 L nasal cannula. GENERAL: Anxious. HEENT: Normocephalic, atraumatic. CARDIOVASCULAR: S1, S2. LUNGS: Mild wheezes and rhonchi. HEMATOLOGY: Negative for Homans. PSYCH: Fair mood and affect. NEUROLOGIC: Cranial nerves intact. LABS: Hemoglobin is 11.5, white count 20.57. ASSESSMENT: Acute chronic obstructive pulmonary disease, tracheobronchitis versus community- acquired pneumonia. Extensive reticular nodular infiltrates, interstitial fibrosis. Blood culture positive for coagulase-negative Staph. Former smoker, anxiety. Wait for Infectious Disease recommendations. Continue with steroids, antibiotics, updrafts. Possible discharge home soon. Wean oxygen as tolerated. MMODL / IJN: [id number] /
[2022-08-21] MEDS: methylPREDNISolone SOD SUCCI 125 MG/2 ML VIAL IV SCH ×4 (05:52→23:28)
[2022-08-21] MEDS: ALPRAZolam 1 MG TAB PO SCH ×3 (08:50→21:38)
[2022-08-21] MEDS: IPRATROPIUM-ALBUTEROL 3 ML NEB INHALATION SCH ×4 (08:53→20:35)
[2022-08-21] MEDS: SYMBICORT 160-4.5 MCG INHALER INHALATION SCH ×2 (08:53→20:35)
[2022-08-21] MEDS: AZITHROMYCIN 500 MG in SODIUM CHLORIDE 0.9% 250 ML IVPB SCH (08:56)
[2022-08-21] MEDS: guaiFENesin-DM 100-10MG/5ML 10 ML CUP PO PRN ×3 (10:21→23:28)
--- NOTE | 2022-08-21 11:07 | XR ---
EXAMINATION TYPE: XR chest 1V portable DATE OF EXAM: 08/21/2022 COMPARISON: Chest x-ray and CT 08/17/2022 HISTORY: COPD, shortness of breath TECHNIQUE: Single frontal view of the chest is obtained. FINDINGS: Interstitial changes within the lungs, underlying emphysema seen on prior exam with areas of scarring at the apices, areas of pleural thickening again noted. Micronodular pattern with suggest ion of groundglass nodules seen on CT not as well seen on plain film. No pneumothorax or pleural effu jovanny. Cardiomediastinal silhouette is within normal limits. Bones are unremarkable. IMPRESSION: Correlate for possible atypical infections, hypersensitivity pneumonitis, aspiration, in fectious bronchiolitis, sarcoid among others.
--- NOTE | 2022-08-21 12:02 | P.PN ---
Subjective Progress Note Date: 08/21/22 This is a very pleasant 52-year-old female patient with no current primary care provider. She has a history of COPD, former smoking. She does have a nebulizer at home and albuterol rescue inhaler. This was provided by an urgent care visit in the past. Recently she had been exposed to many grandchildren who have been coughing and congested. She developed increasing shortness of breath, cough congestion dyspnea on exertion. Productive cough of green thick sputum. She presented to the emergency room yesterday for the same. Chest x-ray reveals prominent interstitial lung markings scattered throughout the lungs. No evidence of focal consolidation, pneumothorax or pleural effusion. Flattening of the hemidiaphragms with COPD changes. Computed tomography scan of the chest without contrast revealed extensive reticulonodular infiltrates. COPD. Possible pulmonary interstitial fibrosis. No discrete suspicious masses. Blood cultures are revealing no growth. One set of blood cultures was positive for coag-negative staph. White count 20.5. Hemoglobin 11.5. Platelets 535. Sodium 137. Potassium 5.1. BUN 12. Creatinine 0.6. AST 26. ALT 40. Pro- calcitonin 0.15. Chronic virus not detected. Influenza screen negative. She was initiated on vancomycin and DuoNeb inhalations. She is seen today in consultation on the regular medical floor. She is currently resting comfortably in bed. Awake and alert in no acute distress. She is maintaining O2 saturations in the mid 90s on 3 L/m per nasal cannula. Afebrile. Hemodynamically stable. Feeling a bit better today compared to yesterday. Not quite back to her baseline. The patient is seen today to 2021 in follow-up on the regular medical floor. She is awake and alert in no acute distress. Breathing a bit better today compared to yesterday. Not quite back to her baseline. Maintaining O2 saturations in the 90s on 3 L/m per nasal cannula. She remains quite anxious stating that she does have issues with anxiety. Creatinine 0.53. C-reactive protein 12.9. Pro-calcitonin 0.10. Blood cultures reveal coagulase negative staph. She is continued on ceftriaxone and azithromycin. Maintained on Symbicort, DuoNeb inhalations, IV Solu-Medrol, Singulair. Xanax as needed. The patient is seen today 08/20/2022 in follow-up on the regular medical floor. She is currently resting comfortably in bed. Awake and alert in no acute distress. Less anxious today. Maintaining good O2 saturations in the 90s on 2 L/m per nasal cannula. She's afebrile. Hemodynamically stable. Sputum culture pending. Blood culture positive for coag-negative staph. She remains on ceftriaxone and azithromycin. Continued on Symbicort, DuoNeb inhalations, IV Solu-Medrol. The patient is seen today 08/21/2022 in follow-up on the regular medical floor. She is resting comfortably in bed. Awake and alert in no acute distress. A little more relaxed today. Maintaining O2 saturations in the 90s on 2 L/m per nasal cannula. His x-ray continues to show interstitial changes within the lungs, underlying emphysema possible atypical infection, hypersensitivity pneumonitis, infectious bronchiolitis. Similar findings on computed tomography scan of the chest. She remains on ceftriaxone. Blood cultures were positive for staph hominis. Sputum culture positive for Nayana. She is continued on DuoNeb inhalations, Symbicort, IV Solu-Medrol and Singulair. Objective - Vital Signs Vital signs: Vital Signs Temp 97.6 F 08/21/22 07:38 Pulse 84 08/21/22 09:07 Resp 18 08/21/22 09:36 BP 126/79 08/21/22 07:38 Pulse Ox 97 08/21/22 07:38 FiO2 Intake & Output 08/20/22 08/21/22 08/21/22 18:59 06:59 18:59 Other: Voiding Method Toilet Toilet # Voids 3 - Exam GENERAL EXAM: Alert, pleasant 52-year-old female, currently on 2 L nasal cannula, comfortable in no apparent distress. HEAD: Normocephalic. EYES: Normal reaction of pupils, equal size. NOSE: Clear with pink turbinates. THROAT: No erythema or exudates. NECK: No masses, no JVD. CHEST: No chest wall deformity. LUNGS: Equal air entry with bilateral end expiratory wheeze, crackles more so on the left base. CVS: S1 and S2 normal with no audible murmur, regular rhythm. ABDOMEN: No hepatosplenomegaly, normal bowel sounds, no guarding or rigidity. SPINE: No scoliosis or deformity SKIN: No rashes CENTRAL NERVOUS SYSTEM: No focal deficits, tone is normal in all 4 extremities. EXTREMITIES: There is no peripheral edema. No clubbing, no cyanosis. Peripheral pulses are intact. - Labs CBC & Chem 7: 08/18/22 06:47 08/19/22 06:35 Labs: Microbiology - Last 24 Hours (Table) 08/17/22 14:19 Blood Culture Gram Stain - Final Blood Blood Culture - Final Staph hominis sub sp. hominis 08/17/22 14:19 Blood Culture Gram Stain - Final Blood Blood Culture - Final Staph hominis sub sp. hominis 08/19/22 16:55 Gram Stain - Final Sputum Sputum Culture - Final Nayana albicans Assessment and Plan Assessment: Acute exacerbation of chronic obstructive pulmonary disease, complicated by purulent tracheobronchitis versus community-acquired pneumonia. Procalcitonin 0.10. Remains on ceftriaxone and completed azithromycin Extensive reticulonodular infiltrates, possible underlying pulmonary inters titial fibrosis. No discrete suspicious mass Blood culture positive for staph hominis, currently on ceftriaxone Former smoker Anxiety Plan: The patient was seen and evaluated Chest x-ray and medications reviewed Continue with ceftriaxone ID is on the case Continue DuoNeb inhalations, Symbicort, IV Solu-Medrol If no significant improvement may require bronchoscopy with BAL We'll continue to follow I have personally seen and examined the patient, performed the documentation and the assessment and plan as written. Number of minutes spent on the visit: 10.
--- NOTE | 2022-08-21 16:01 | P.PN ---
Subjective Progress Note Date: 08/20/22 Principal diagnosis: Pneumonia and positive blood culture Patient is a 52-year-old female past medical history significant for COPD presented to hospital with increasing shortness of breath and cough, patient did have CT of the chest with radicular infiltrate concerning for possible pneumonia did have a positive blood culture which was subsequent finalize as coagulase negative staph. On today's evaluation that is 08/20/2022, the patient remains to be afebrile the patient is breathing comfortably on his cannula oxygen, the patient denies having any chest pain but did have a cough occasionally sputum no hemoptysis and no abdominal pain no diarrhea Objective - Vital Signs Vital signs: Vital Signs Temp 97.2 F L 08/20/22 13:05 Pulse 90 08/20/22 13:05 Resp 18 08/20/22 13:05 BP 129/79 08/20/22 13:05 Pulse Ox 96 08/20/22 13:05 FiO2 Intake & Output 08/19/22 08/20/22 08/20/22 18:59 06:59 18:59 Output Total 0 Balance 0 Output: Urine 0 Other: Voiding Method Toilet Toilet # Voids 4 - Exam GENERAL DESCRIPTION: Middle-age female lying in bed in no distress RESPIRATORY SYSTEM: Unlabored breathing , coarse breath sounds bilaterally no wheezes HEART: S1 S2 regular rate and rhythm , ABDOMEN: Soft , no tenderness EXTREMITIES: No edema feet - Labs CBC & Chem 7: 08/18/22 06:47 08/19/22 06:35 Labs: Microbiology - Last 24 Hours (Table) 08/19/22 16:55 Gram Stain - Preliminary Sputum Sputum Culture - Preliminary 08/17/22 14:19 Blood Culture Gram Stain - Preliminary Blood Blood Culture - Preliminary Coagulase Negative Staph Assessment and Plan (1) Acute exacerbation of chronic obstructive pulmonary disease Current Visit: Yes Status: Acute Code(s): J44.1 - CHRONIC OBSTRUCTIVE PULMONARY DISEASE W (ACUTE) EXACERBATION SNOMED Code(s): 983630464 Plan: 1patient with a positive blood culture with gram-positive cocci in this patient was in the hospital with increasing shortness of breath and cough and some greenish sputum production concerning for possible pneumonia however blood culture has been finalized as coagulase-negative staph more likely contamination and vancomycin has been discontinued 2- sputum culture has been obtained which are currently pending , blood culture repeat so far negative 3patient seemed to have shown clinical improvement and will continue with Rocephin and Zithromax while waiting for the culture finalized Time with Patient: Less than 30
--- NOTE | 2022-08-21 16:03 | P.PN ---
Subjective Progress Note Date: 08/21/22 Principal diagnosis: Pneumonia and positive blood culture Patient is a 52-year-old female past medical history significant for COPD presented to hospital with increasing shortness of breath and cough, patient did have CT of the chest with radicular infiltrate concerning for possible pneumonia did have a positive blood culture which was subsequent finalize as coagulase negative staph. On today's evaluation that is 08/21/2022, the patient remains to be afebrile the patient is breathing comfortably on 3 L nasal cannula oxygen, the patient denies having any chest pain the patient cough has decreased intensity with occasionally sputum no hemoptysis and no abdominal pain no diarrhea Objective - Vital Signs Vital signs: Vital Signs Temp 97.6 F 08/21/22 07:38 Pulse 88 08/21/22 12:38 Resp 18 08/21/22 09:36 BP 126/79 08/21/22 07:38 Pulse Ox 97 08/21/22 07:38 FiO2 Intake & Output 08/20/22 08/21/22 08/21/22 18:59 06:59 18:59 Other: Voiding Method Toilet Toilet # Voids 3 1 - Exam GENERAL DESCRIPTION: Middle-age female lying in bed in no distress RESPIRATORY SYSTEM: Unlabored breathing , coarse breath sounds bilaterally no wheezes HEART: S1 S2 regular rate and rhythm , ABDOMEN: Soft , no tenderness EXTREMITIES: No edema feet - Labs CBC & Chem 7: 08/18/22 06:47 08/19/22 06:35 Labs: Microbiology - Last 24 Hours (Table) 08/17/22 14:19 Blood Culture Gram Stain - Final Blood Blood Culture - Final Staph hominis sub sp. hominis 08/17/22 14:19 Blood Culture Gram Stain - Final Blood Blood Culture - Final Staph hominis sub sp. hominis 08/19/22 16:55 Gram Stain - Final Sputum Sputum Culture - Final Nayana albicans Assessment and Plan (1) Acute exacerbation of chronic obstructive pulmonary disease Current Visit: Yes Status: Acute Code(s): J44.1 - CHRONIC OBSTRUCTIVE PULMONARY DISEASE W (ACUTE) EXACERBATION SNOMED Code(s): 561752221 Plan: 1patient with a positive blood culture with gram-positive cocci in this patient was in the hospital with increasing shortness of breath and cough and some greenish sputum production concerning for possible pneumonia however blood culture has been finalized as coagulase-negative staph more likely contamination and vancomycin has been discontinued 2- sputum culture has been finalized as Nayana likely colonizer , blood culture repeat has been negative so far 3patient seemed to have shown clinical improvement and will continue with Rocephin and Zithromax and monitor clinical course closely Time with Patient: Less than 30
[2022-08-21] MEDS: MONTELUKAST 10 MG TAB PO SCH (21:38)
--- NOTE | 2022-08-21 21:59 | PN ---
PROGRESS NOTE SUBJECTIVE: A 52-year-old white female with bilateral pneumonia with multiple pulmonary infiltrates. She is still on 2 to 3 L. She is standing up moving in the room with severe wheezing and shortness of breath. Inspiratory and expiratory stridor on 2 to 3 L. She is not ready to go home yet. She goes home with oxygen. Try to wean off oxygen as tolerated. OBJECTIVE: CARDIOVASCULAR: S1, S2. LUNGS: Scattered rhonchi and wheeze. GI: Soft. HEMATOLOGY: Negative Homans. ASSESSMENT: Chronic obstructive pulmonary disease exacerbation, tracheobronchitis, community- acquired pneumonia. Continue to wean oxygen as tolerated. IV antibiotics, IV steroids, updrafts. Prognosis guarded. MMODL / IJN: [id number] /
--- NOTE | 2022-08-22 01:17 | PN ---
PROGRESS NOTE A 52-year-old white female, breathing is slowly improving. She does not wear oxygen at home. She is still on 3 L, saturating 94. She is short of breath with ambulating or standing up. Blood pressure 140s over 88, temp 97.7, pulse 92, respiratory rate 16 to 18. Labs show white count of 20.57, hemoglobin is 11.5, sodium 137, potassium 5.1. Dr. Burgos saw the patient. He says she has acute COPD exacerbation, positive blood culture, gram-positive cocci, increasing shortness of breath. Sputum concerning for possible pneumonia. Blood cultures, coagulase negative Staph, which is contamination. Discontinue vancomycin. Sputum culture shows Nayana, which is a colonizer. Repeat blood cultures are negative. Continue with Rocephin, azithromycin. Possible discharge home. She will have to wean off oxygen and possibly be discharged home. Continue broad-spectrum antibiotics. MMODL / IJN: [id number] /
[2022-08-22] MEDS: methylPREDNISolone SOD SUCCI 125 MG/2 ML VIAL IV SCH ×3 (05:46→16:43)
[2022-08-22] MEDS: ALPRAZolam 1 MG TAB PO SCH ×3 (07:56→20:15)
[2022-08-22] MEDS: SYMBICORT 160-4.5 MCG INHALER INHALATION SCH ×2 (08:16→19:15)
[2022-08-22] MEDS: IPRATROPIUM-ALBUTEROL 3 ML NEB INHALATION SCH ×4 (08:16→19:15)
[2022-08-22] MEDS: guaiFENesin-DM 100-10MG/5ML 10 ML CUP PO PRN (09:41)
--- NOTE | 2022-08-22 11:39 | P.PN ---
Subjective Progress Note Date: 08/22/22 This is a very pleasant 52-year-old female patient with no current primary care provider. She has a history of COPD, former smoking. She does have a nebulizer at home and albuterol rescue inhaler. This was provided by an urgent care visit in the past. Recently she had been exposed to many grandchildren who have been coughing and congested. She developed increasing shortness of breath, cough congestion dyspnea on exertion. Productive cough of green thick sputum. She presented to the emergency room yesterday for the same. Chest x-ray reveals prominent interstitial lung markings scattered throughout the lungs. No evidence of focal consolidation, pneumothorax or pleural effusion. Flattening of the hemidiaphragms with COPD changes. Computed tomography scan of the chest without contrast revealed extensive reticulonodular infiltrates. COPD. Possible pulmonary interstitial fibrosis. No discrete suspicious masses. Blood cultures are revealing no growth. One set of blood cultures was positive for coag-negative staph. White count 20.5. Hemoglobin 11.5. Platelets 535. Sodium 137. Potassium 5.1. BUN 12. Creatinine 0.6. AST 26. ALT 40. Pro- calcitonin 0.15. Chronic virus not detected. Influenza screen negative. She was initiated on vancomycin and DuoNeb inhalations. She is seen today in consultation on the regular medical floor. She is currently resting comfortably in bed. Awake and alert in no acute distress. She is maintaining O2 saturations in the mid 90s on 3 L/m per nasal cannula. Afebrile. Hemodynamically stable. Feeling a bit better today compared to yesterday. Not quite back to her baseline. The patient is seen today to 2021 in follow-up on the regular medical floor. She is awake and alert in no acute distress. Breathing a bit better today compared to yesterday. Not quite back to her baseline. Maintaining O2 saturations in the 90s on 3 L/m per nasal cannula. She remains quite anxious stating that she does have issues with anxiety. Creatinine 0.53. C-reactive protein 12.9. Pro-calcitonin 0.10. Blood cultures reveal coagulase negative staph. She is continued on ceftriaxone and azithromycin. Maintained on Symbicort, DuoNeb inhalations, IV Solu-Medrol, Singulair. Xanax as needed. The patient is seen today 08/20/2022 in follow-up on the regular medical floor. She is currently resting comfortably in bed. Awake and alert in no acute distress. Less anxious today. Maintaining good O2 saturations in the 90s on 2 L/m per nasal cannula. She's afebrile. Hemodynamically stable. Sputum culture pending. Blood culture positive for coag-negative staph. She remains on ceftriaxone and azithromycin. Continued on Symbicort, DuoNeb inhalations, IV Solu-Medrol. The patient is seen today 08/21/2022 in follow-up on the regular medical floor. She is resting comfortably in bed. Awake and alert in no acute distress. A little more relaxed today. Maintaining O2 saturations in the 90s on 2 L/m per nasal cannula. His x-ray continues to show interstitial changes within the lungs, underlying emphysema possible atypical infection, hypersensitivity pneumonitis, infectious bronchiolitis. Similar findings on computed tomography scan of the chest. She remains on ceftriaxone. Blood cultures were positive for staph hominis. Sputum culture positive for Nayana. She is continued on DuoNeb inhalations, Symbicort, IV Solu-Medrol and Singulair. The patient is seen today 08/22/2022 in follow-up on the regular medical floor. She is awake and alert in no acute distress sitting up in bed. Breathing easier today compared to yesterday. Still not quite back to her baseline. Maintaining good O2 saturations in the 90s on 2 L/m per nasal cannula. She is working with the incentive spirometer. Lung sounds remain somewhat diminished. She is continued on Symbicort, DuoNeb inhalations, IV Solu-Medrol and Singulair. Anti biotics in the form of ceftriaxone. Sputum culture was positive for Nayana. Blood cultures positive for staph hominis. ID is on the case. Objective - Vital Signs Vital signs: Vital Signs Temp 97.4 F L 08/22/22 08:00 Pulse 109 H 08/22/22 11:29 Resp 18 08/22/22 11:29 BP 137/77 08/22/22 08:00 Pulse Ox 94 L 08/22/22 08:18 FiO2 Intake & Output 08/21/22 08/22/22 08/22/22 18:59 06:59 18:59 Intake Total 640 Balance 640 Intake: Oral 640 Other: Voiding Method Toilet # Voids 3 3 # Bowel Movements 1 - Exam GENERAL EXAM: Alert, anxious 52-year-old female, currently on 2 L nasal cannula, comfortable in no apparent distress. HEAD: Normocephalic. EYES: Normal reaction of pupils, equal size. NOSE: Clear with pink turbinates. THROAT: No erythema or exudates. NECK: No masses, no JVD. CHEST: No chest wall deformity. LUNGS: Equal air entry clear, diminished. CVS: S1 and S2 normal with no audible murmur, regular rhythm. ABDOMEN: No hepatosplenomegaly, normal bowel sounds, no guarding or rigidity. SPINE: No scoliosis or deformity SKIN: No rashes CENTRAL NERVOUS SYSTEM: No focal deficits, tone is normal in all 4 extremities. EXTREMITIES: There is no peripheral edema. No clubbing, no cyanosis. Peripheral pulses are intact. - Labs CBC & Chem 7: 08/18/22 06:47 08/19/22 06:35 Labs: Microbiology - Last 24 Hours (Table) 08/17/22 14:19 Blood Culture Gram Stain - Final Blood Blood Culture - Final Staph hominis sub sp. hominis 08/17/22 14:19 Blood Culture Gram Stain - Final Blood Blood Culture - Final Staph hominis sub sp. hominis 08/19/22 16:55 Gram Stain - Final Sputum Sputum Culture - Final Nayana albicans Assessment and Plan Assessment: Acute exacerbation of chronic obstructive pulmonary disease, complicated by purulent tracheobronchitis versus community-acquired pneumonia. Procalcitonin 0.10. Remains on ceftriaxone and completed azithromycin Extensive reticulonodular infiltrates, possible underlying pulmonary interstitial fibrosis. No discrete suspicious mass Blood culture positive for staph hominis, currently on ceftriaxone Former smoker Anxiety Plan: The patient was seen and evaluated Improving, not quite back to her baseline Continue with ceftriaxone Continue DuoNeb inhalations, Symbicort, Singulair, IV Solu-Medrol Titrate the FiO2 as tolerated Continue with the incentive spirometer Increase her activity as tolerated We'll continue to follow I have personally seen and examined the patient, performed the documentation and the assessment and plan as written. Number of minutes spent on the visit: 10.
[2022-08-22 12:50] LABS: Basophils # (A) 0.03 X 10*3/uL (0.00-0.10); Basophils % (A) 0.2 %; Eosinophils # (A) 0 X 10*3/uL (0.04-0.35); Eosinophils % (A) 0 %; HCT 33.1 % (37.2-46.3); Immature Grans, Automated 3.5 %; Lymphocytes # (A) 0.84 X 10*3/uL (0.90-5.00); Lymphocytes % (A) 6.3 %; MCH 28.2 pg (27.0-32.0); MCHC 30.2 g/dL (32.0-37.0); MCV 93.2 fL (80.0-97.0); Mean Platelet Volume 9.5 fL (9.5-12.2); Monocytes # (A) 0.33 X 10*3/uL (0.20-1.00); Monocytes % (A) 2.5 %; NRBC Per 100 WBC 0 /100 WBCS (0.0-0.0); Neutrophils % (A) 87.5 %; Platelet Count 454 X 10*3/uL (140-440); RBC 3.55 X 10*6/uL (4.10-5.20); RDW 14.7 % (11.5-14.5); WBC 13.27 X 10*3/uL (4.50-10.00)
[2022-08-22 13:36] LABS: ALT 40 U/L (8-44); AST 17 U/L (13-35); Albumin 2.8 g/dL (3.8-4.9); Albumin/Globulin Ratio 1.21 (1.60-3.17); Alkaline Phosphatase 76 U/L (41-126); BUN/Creat Ratio 33.03 Ratio (12.00-20.00); Blood Urea Nitrogen 18.2 mg/dL (9.0-27.0); Calcium 8.5 mg/dL (8.7-10.3); Carbon Dioxide 32.2 mmol/L (20.0-27.5); Chloride 100 mmol/L (96-109); Globulin 2.3 g/dL (1.6-3.3); Glucose 101 mg/dL (70-110); Potassium 5.1 mmol/L (3.5-5.5); Sodium 140 mmol/L (135-145); Total Bilirubin <0.15 mg/dL (0.30-1.20)
[2022-08-22] MEDS: MONTELUKAST 10 MG TAB PO SCH (20:15)
[2022-08-23] MEDS: methylPREDNISolone SOD SUCCI 125 MG/2 ML VIAL IV SCH ×4 (00:01→17:22)
[2022-08-23] MEDS: IPRATROPIUM-ALBUTEROL 3 ML NEB INHALATION SCH ×4 (07:12→20:53)
[2022-08-23] MEDS: SYMBICORT 160-4.5 MCG INHALER INHALATION SCH ×2 (07:12→20:53)
[2022-08-23] MEDS: ALPRAZolam 1 MG TAB PO SCH ×3 (08:06→21:13)
--- NOTE | 2022-08-23 11:02 | P.PN ---
Subjective Progress Note Date: 08/23/22 Principal diagnosis: Acute exacerbation of COPD and acute left lower lobe pneumonia, community- acquired. This is a very pleasant 52-year-old female patient with no current primary care provider. She has a history of COPD, former smoking. She does have a nebulizer at home and albuterol rescue inhaler. This was provided by an urgent care visit in the past. Recently she had been exposed to many grandchildren who have been coughing and congested. She developed increasing shortness of breath, cough congestion dyspnea on exertion. Productive cough of green thick sputum. She presented to the emergency room yesterday for the same. Chest x-ray reveals prominent interstitial lung markings scattered throughout the lungs. No evidence of focal consolidation, pneumothorax or pleural effusion. Flattening of the hemidiaphragms with COPD changes. Computed tomography scan of the chest without contrast revealed extensive reticulonodular infiltrates. COPD. Possible pulmonary interstitial fibrosis. No discrete suspicious masses. Blood cultures are revealing no growth. One set of blood cultures was positive for coag-negative staph. White count 20.5. Hemoglobin 11.5. Platelets 535. Sodium 137. Potassium 5.1. BUN 12. Creatinine 0.6. AST 26. ALT 40. Pro-calcitonin 0.15. Chronic virus not detected. Influenza screen negative. She was initiated on vancomycin and DuoNeb inhalations. She is seen today in consultation on the regular medical floor. She is currently resting comfortably in bed. Awake and alert in no acute distress. She is maintaining O2 saturations in the mid 90s on 3 L/m per nasal cannula. Afebrile. Hemodynamically stable. Feeling a bit better today compared to yesterday. Not quite back to her baseline. The patient is seen today to 2021 in follow-up on the regular medical floor. She is awake and alert in no acute distress. Breathing a bit better today compared to yesterday. Not quite back to her baseline. Maintaining O2 saturations in the 90s on 3 L/m per nasal cannula. She remains quite anxious stating that she does have issues with anxiety. Creatinine 0.53. C-reactive protein 12.9. Pro-calcitonin 0.10. Blood cultures reveal coagulase negative staph. She is continued on ceftriaxone and azithromycin. Maintained on Symbicort, DuoNeb inhalations, IV Solu-Medrol, Singulair. Xanax as needed. The patient is seen today 08/20/2022 in follow-up on the regular medical floor. She is currently resting comfortably in bed. Awake and alert in no acute distress. Less anxious today. Maintaining good O2 saturations in the 90s on 2 L/m per nasal cannula. She's afebrile. Hemodynamically stable. Sputum culture pending. Blood culture positive for coag-negative staph. She remains on ceftriaxone and azithromycin. Continued on Symbicort, DuoNeb inhalations, IV Solu-Medrol. The patient is seen today 08/21/2022 in follow-up on the regular medical floor. She is resting comfortably in bed. Awake and alert in no acute distress. A little more relaxed today. Maintaining O2 saturations in the 90s on 2 L/m per nasal cannula. His x-ray continues to show interstitial changes within the lungs, underlying emphysema possible atypical infection, hypersensitivity pneumonitis, infectious bronchiolitis. Similar findings on computed tomography scan of the chest. She remains on ceftriaxone. Blood cultures were positive for staph hominis. Sputum culture positive for Nayana. She is continued on DuoNeb inhalations, Symbicort, IV Solu-Medrol and Singulair. The patient is seen today 08/22/2022 in follow-up on the regular medical floor. She is awake and alert in no acute distress sitting up in bed. Breathing easier today compared to yesterday. Still not quite back to her baseline. Maintaining good O2 saturations in the 90s on 2 L/m per nasal cannula. She is working with the incentive spirometer. Lung sounds remain somewhat diminished. She is continued on Symbicort, DuoNeb inhalations, IV Solu-Medrol and Singulair. Antibiotics in the form of ceftriaxone. Sputum culture was positive for Nayana. Blood cultures positive for staph hominis. ID is on the case. Reevaluated today on 08/23/22, patient continues to have coughing and wheezing, continues to have shortness of breath, she is quite anxious, continues to have abnormal findings especially over the left lower lobe posteriorly. Today I felt that the patient should continue on the same treatment plan, however if no improvement in the next couple of days, she may have to be seriously considered for bronchoscopy and BAL of the left lower lobe. And I would have a repeat chest x-ray in a.m. on this patient continues to have leukocytosis although it is improving WBC count is down to 13.27 from 23.7 on admission her electrolytes are normal, her renal profile is normal. Pro-calcitonin level has normalized, nonetheless the patient remains quite symptomatic. Objective - Vital Signs Vital signs: Vital Signs Temp 96.9 F L 08/23/22 07:50 Pulse 71 08/23/22 07:50 Resp 21 08/23/22 07:50 BP 149/93 08/23/22 07:50 Pulse Ox 98 08/23/22 07:50 FiO2 Intake & Output 08/22/22 08/23/22 08/23/22 18:59 06:59 18:59 Intake Total 450 Output Total 0 Balance 450 Intake: Intake, IV Titration 50 Amount cefTRIAXone 1 gm In 50 Sodium Chloride 0.9% 50 ml @ 100 mls/hr IVPB Q24HR [facility] Rx#:[id number] Oral 400 Output: Urine 0 Other: Voiding Method Toilet # Voids 6 2 # Bowel Movements 0 - Exam Physical Exam: Revealed a 52-year-old female anxious in no distress Head: Atraumatic, normocephalic. HEENT:[Neck is supple.] [No neck masses.] [No thyromegaly.] [No JVD.] Chest: Scattered rhonchi and wheezes more so on the left side. Crackles at the left base. Cardiac Exam: [Normal S1 and S2, no S3 gallop, no murmur.] Abdomen: [Soft, nontender, no megaly, no rebound, no guarding, normal bowel sounds.] Extremities: [No clubbing, no edema, no cyanosis.] Neurological Exam: [No focal neurologic deficit.] Alert oriented 3 Psychiatric: Normal mood affect and normal mental status examination. Skin: No rashes. - Labs CBC & Chem 7: 08/22/22 07:05 08/22/22 07:05 Labs: Abnormal Lab Results - Last 24 Hours (Table) 08/22/22 08/22/22 Range/Units 07:05 07:05 WBC 13.27 H (4.50-10.00) X 10*3/uL RBC 3.55 L (4.10-5.20) X 10*6/uL Hgb 10.0 L (12.0-15.0) g/dL Hct 33.1 L (37.2-46.3) % MCHC 30.2 L (32.0-37.0) g/dL RDW 14.7 H (11.5-14.5) % Plt Count 454 H (140-440) X 10*3/uL Immature Gran # 0.47 H (0.00-0.04) X 10*3/uL Neutrophils # 11.60 H (1.80-7.70) X 10*3/uL Lymphocytes # 0.84 L (0.90-5.00) X 10*3/uL Eosinophils # 0 L (0.04-0.35) X 10*3/uL Carbon Dioxide 32.2 H (20.0-27.5) mmol/L Anion Gap 7.20 L (10.00-18.00) mmol/L BUN/Creatinine Ratio 33.03 H (12.00-20.00) Ratio Calcium 8.5 L (8.7-10.3) mg/dL Total Bilirubin <0.15 L (0.30-1.20) mg/dL C-Reactive Protein 1.40 H (0.00-0.80) mg/dL Total Protein 5.0 L (6.2-8.2) g/dL Albumin 2.8 L (3.8-4.9) g/dL Albumin/Globulin Ratio 1.21 L (1.60-3.17) g/dL Microbiology - Last 24 Hours (Table) 08/21/22 13:37 Blood Culture - Preliminary Blood No Growth after 24 hours Assessment and Plan Assessment: Impression: Acute exacerbation of COPD Extensive pneumonia involving lower lobes left more so than right. Community- acquired. Contaminated blood cultures/false bacteremia Former smoker Generalized anxiety disorder Recommendation: Continue present course of treatment including bronchodilators Continue antibiotics as per ID on the case, patient is on Rocephin Continue Solu-Medrol. If no improvement in the next couple of days, may have to be considered for bronchoscopy. Not quite ready for discharge planning. Time with Patient: Less than 30
[2022-08-23] MEDS: MONTELUKAST 10 MG TAB PO SCH (21:13)
--- NOTE | 2022-08-23 23:36 | P.PN ---
Subjective Progress Note Date: 08/22/22 Principal diagnosis: Pneumonia and positive blood culture Patient is a 52-year-old female past medical history significant for COPD presented to hospital with increasing shortness of breath and cough, patient did have CT of the chest with radicular infiltrate concerning for possible pneumonia did have a positive blood culture which was subsequent finalize as coagulase negative staph. On today's evaluation that is 08/22/2022, the patient continues to be afebrile the patient is breathing comfortably on 3 L nasal cannula oxygen, the patient denies chest pain, the patient cough has decreased intensity with occasional sputum no hemoptysis and no abdominal pain no diarrhea Objective - Vital Signs Vital signs: Vital Signs Temp 97.7 F 08/22/22 14:00 Pulse 111 H 08/22/22 14:00 Resp 19 08/22/22 14:00 BP 135/82 08/22/22 14:00 Pulse Ox 91 L 08/22/22 14:00 FiO2 Intake & Output 08/21/22 08/22/22 08/22/22 18:59 06:59 18:59 Intake Total 640 Balance 640 Intake: Oral 640 Other: Voiding Method Toilet # Voids 3 3 # Bowel Movements 1 - Exam GENERAL DESCRIPTION: Middle-age female lying in bed in no distress RESPIRATORY SYSTEM: Unlabored breathing , coarse breath sounds bilaterally no wheezes HEART: S1 S2 regular rate and rhythm , ABDOMEN: Soft , no tenderness EXTREMITIES: No edema feet - Labs CBC & Chem 7: 08/22/22 07:05 08/22/22 07:05 Labs: Abnormal Lab Results - Last 24 Hours (Table) 08/22/22 08/22/22 Range/Units 07:05 07:05 WBC 13.27 H (4.50-10.00) X 10*3/uL RBC 3.55 L (4.10-5.20) X 10*6/uL Hgb 10.0 L (12.0-15.0) g/dL Hct 33.1 L (37.2-46.3) % MCHC 30.2 L (32.0-37.0) g/dL RDW 14.7 H (11.5-14.5) % Plt Count 454 H (140-440) X 10*3/uL Immature Gran # 0.47 H (0.00-0.04) X 10*3/uL Neutrophils # 11.60 H (1.80-7.70) X 10*3/uL Lymphocytes # 0.84 L (0.90-5.00) X 10*3/uL Eosinophils # 0 L (0.04-0.35) X 10*3/uL Carbon Dioxide 32.2 H (20.0-27.5) mmol/L Anion Gap 7.20 L (10.00-18.00) mmol/L BUN/Creatinine Ratio 33.03 H (12.00-20.00) Ratio Calcium 8.5 L (8.7-10.3) mg/dL Total Bilirubin <0.15 L (0.30-1.20) mg/dL C-Reactive Protein 1.40 H (0.00-0.80) mg/dL Total Protein 5.0 L (6.2-8.2) g/dL Albumin 2.8 L (3.8-4.9) g/dL Albumin/Globulin Ratio 1.21 L (1.60-3.17) g/dL Microbiology - Last 24 Hours (Table) 08/17/22 14:19 Blood Culture Gram Stain - Final Blood Blood Culture - Final Staph hominis sub sp. hominis 08/17/22 14:19 Blood Culture Gram Stain - Final Blood Blood Culture - Final Staph hominis sub sp. hominis 08/19/22 16:55 Gram Stain - Final Sputum Sputum Culture - Final Nayana albicans Assessment and Plan (1) Acute exacerbation of chronic obstructive pulmonary disease Current Visit: Yes Status: Acute Code(s): J44.1 - CHRONIC OBSTRUCTIVE PULMONARY DISEASE W (ACUTE) EXACERBATION SNOMED Code(s): 545624300 Plan: 1patient with a positive blood culture with gram-positive cocci in this patient was in the hospital with increasing shortness of breath and cough and some greenish sputum production concerning for possible pneumonia however blood cul ture has been finalized as coagulase-negative staph more likely contamination and vancomycin has been discontinued 2- sputum culture has been finalized as Nayana likely colonizer , blood culture repeat has been negative so far 3patient has shown clinical improvement, the patient will continue with Rocephin and Zithromax and monitor clinical course closely Time with Patient: Less than 30
--- NOTE | 2022-08-23 23:37 | P.PN ---
Subjective Progress Note Date: 08/23/22 Principal diagnosis: Pneumonia and positive blood culture Patient is a 52-year-old female past medical history significant for COPD presented to hospital with increasing shortness of breath and cough, patient did have CT of the chest with radicular infiltrate concerning for possible pneumonia did have a positive blood culture which was subsequent finalize as coagulase negative staph. On today's evaluation that is 08/23/2022, the patient denies any fever or any chills the patient is breathing comfortably on nasal cannula oxygen, the patient denies chest pain, the patient cough has decreased intensity and mostly dry in nature, the patient denies having any nausea no vomiting no abdominal pain or diarrhea Objective - Vital Signs Vital signs: Vital Signs Temp 96.9 F L 08/23/22 07:50 Pulse 100 08/23/22 15:26 Resp 18 08/23/22 15:26 BP 149/93 08/23/22 07:50 Pulse Ox 98 08/23/22 07:50 FiO2 Intake & Output 08/22/22 08/23/22 08/23/22 18:59 06:59 18:59 Intake Total 450 Output Total 0 Balance 450 Intake: Intake, IV Titration 50 Amount cefTRIAXone 1 gm In 50 Sodium Chloride 0.9% 50 ml @ 100 mls/hr IVPB Q24HR [facility] Rx#:[id number] Oral 400 Output: Urine 0 Other: Voiding Method Toilet # Voids 6 2 # Bowel Movements 0 - Exam GENERAL DESCRIPTION: Middle-age female lying in bed in no distress RESPIRATORY SYSTEM: Unlabored breathing , coarse breath sounds bilaterally no wheezes HEART: S1 S2 regular rate and rhythm , ABDOMEN: Soft , no tenderness EXTREMITIES: No edema feet - Labs CBC & Chem 7: 08/22/22 07:05 08/22/22 07:05 Labs: Microbiology - Last 24 Hours (Table) 08/21/22 13:37 Blood Culture - Preliminary Blood No Growth after 48 hours Assessment and Plan (1) Acute exacerbation of chronic obstructive pulmonary disease Current Visit: Yes Status: Acute Code(s): J44.1 - CHRONIC OBSTRUCTIVE PULMONARY DISEASE W (ACUTE) EXACERBATION SNOMED Code(s): 989636457 Plan: 1patient with a positive blood culture with gram-positive cocci in this patient was in the hospital with increasing shortness of breath and cough and some greenish sputum production concerning for possible pneumonia however blood culture has been finalized as coagulase-negative staph more likely contamination and vancomycin has been discontinued 2- sputum culture has been finalized as Nayana likely colonizer , blood culture repeat has been negative so far 3patient continued to show clinical improvement on Rocephin and Zithromax , with a plan to finish therapy with oral Ceftin Time with Patient: Less than 30
--- NOTE | 2022-08-23 23:58 | PN ---
PROGRESS NOTE DATE OF SERVICE: 08/22/2022 SUBJECTIVE: This 52-year-old woman, who was admitted with COPD, is improved significantly. Blood culture positive for Staph hominis. No chest pain. No palpitation. OBJECTIVE: VITAL SIGNS: Pulse is 111, blood pressure ntd HEENT: Conjunctivae normal. NECK: No JVD. CARDIOVASCULAR: S1 and S2. RESPIRATION: Breath sounds diminished at the bases. Scattered rhonchi. ABDOMEN: Soft. NERVOUS SYSTEM: Nonfocal. LABORATORY DATA: Reviewed. ASSESSMENT: 1. Chronic obstructive pulmonary disease acute exacerbation. 2. Staphylococcus hominis from the blood. 3. Multiple medical issues. RECOMMENDATIONS: This 52-year-old who presented with multiple complex . Continue with antibiotics. Continue with bronchodilators. Prognosis guarded. Further recommendations to follow. MMODL / IJN: [id number] / MTDD
--- NOTE | 2022-08-24 05:01 | PN ---
PROGRESS NOTE DATE OF SERVICE: 08/23/2022 SUBJECTIVE: This 52-year-old woman, who was admitted with COPD acute exacerbation as well as left lower pneumonia, is being closely monitored. The patient is on antibiotics. No chest pain. No palpitations. No fever. PHYSICAL EXAMINATION: VITAL SIGNS: Pulse is 100, blood pressure n, respirations 25. HEENT: Conjunctivae normal. RESPIRATION: A few scattered rhonchi. ABDOMEN: Soft. NERVOUS SYSTEM: Nonfocal. LABS: Reviewed. ASSESSMENT: 1. Chronic obstructive pulmonary disease exacerbation. 2. Left pleural pneumonia, possibly community-acquired. 3. History of asthma. RECOMMENDATIONS: I recommend tocontinue the antibiotics. Continue steroids. Prognosis guarded. Closely follow with . Further recommendations to follow. MMODL / IJN: [id number] / DAISY
[2022-08-24] MEDS: methylPREDNISolone SOD SUCCI 125 MG/2 ML VIAL IV SCH ×3 (06:40→12:29)
[2022-08-24] MEDS: SYMBICORT 160-4.5 MCG INHALER INHALATION SCH ×2 (08:18→20:36)
[2022-08-24] MEDS: IPRATROPIUM-ALBUTEROL 3 ML NEB INHALATION SCH ×4 (08:18→20:36)
[2022-08-24] MEDS: ALPRAZolam 1 MG TAB PO SCH ×3 (09:58→20:12)
--- NOTE | 2022-08-24 13:15 | P.PN ---
Subjective Progress Note Date: 08/24/22 This is a very pleasant 52-year-old female patient with no current primary care provider. She has a history of COPD, former smoking. She does have a nebulizer at home and albuterol rescue inhaler. This was provided by an urgent care visit in the past. Recently she had been exposed to many grandchildren who have been coughing and congested. She developed increasing shortness of breath, cough congestion dyspnea on exertion. Productive cough of green thick sputum. She presented to the emergency room yesterday for the same. Chest x-ray reveals prominent interstitial lung markings scattered throughout the lungs. No evidence of focal consolidation, pneumothorax or pleural effusion. Flattening of the hemidiaphragms with COPD changes. Computed tomography scan of the chest without contrast revealed extensive reticulonodular infiltrates. COPD. Possible pulmonary interstitial fibrosis. No discrete suspicious masses. Blood cultures are revealing no growth. One set of blood cultures was positive for coag-negative staph. White count 20.5. Hemoglobin 11.5. Platelets 535. Sodium 137. Potassium 5.1. BUN 12. Creatinine 0.6. AST 26. ALT 40. Pro- calcitonin 0.15. Chronic virus not detected. Influenza screen negative. She was initiated on vancomycin and DuoNeb inhalations. She is seen today in consultation on the regular medical floor. She is currently resting comfortably in bed. Awake and alert in no acute distress. She is maintaining O2 saturations in the mid 90s on 3 L/m per nasal cannula. Afebrile. Hemodynamically stable. Feeling a bit better today compared to yesterday. Not quite back to her baseline. The patient is seen today to 2021 in follow-up on the regular medical floor. She is awake and alert in no acute distress. Breathing a bit better today compared to yesterday. Not quite back to her baseline. Maintaining O2 saturations in the 90s on 3 L/m per nasal cannula. She remains quite anxious stating that she does have issues with anxiety. Creatinine 0.53. C-reactive protein 12.9. Pro-calcitonin 0.10. Blood cultures reveal coagulase negative staph. She is continued on ceftriaxone and azithromycin. Maintained on Symbicort, DuoNeb inhalations, IV Solu-Medrol, Singulair. Xanax as needed. The patient is seen today 08/20/2022 in follow-up on the regular medical floor. She is currently resting comfortably in bed. Awake and alert in no acute distress. Less anxious today. Maintaining good O2 saturations in the 90s on 2 L/m per nasal cannula. She's afebrile. Hemodynamically stable. Sputum culture pending. Blood culture positive for coag-negative staph. She remains on ceftriaxone and azithromycin. Continued on Symbicort, DuoNeb inhalations, IV Solu-Medrol. The patient is seen today 08/21/2022 in follow-up on the regular medical floor. She is resting comfortably in bed. Awake and alert in no acute distress. A little more relaxed today. Maintaining O2 saturations in the 90s on 2 L/m per nasal cannula. His x-ray continues to show interstitial changes within the lungs, underlying emphysema possible atypical infection, hypersensitivity pneumonitis, infectious bronchiolitis. Similar findings on computed tomography scan of the chest. She remains on ceftriaxone. Blood cultures were positive for staph hominis. Sputum culture positive for Nayana. She is continued on DuoNeb inhalations, Symbicort, IV Solu-Medrol and Singulair. The patient is seen today 08/22/2022 in follow-up on the regular medical floor. She is awake and alert in no acute distress sitting up in bed. Breathing easier today compared to yesterday. Still not quite back to her baseline. Maintaining good O2 saturations in the 90s on 2 L/m per nasal cannula. She is working with the incentive spirometer. Lung sounds remain somewhat diminished. She is continued on Symbicort, DuoNeb inhalations, IV Solu-Medrol and Singulair. Anti biotics in the form of ceftriaxone. Sputum culture was positive for Nayana. Blood cultures positive for staph hominis. ID is on the case. The patient is seen today 08/24/2022 in follow-up on the regular medical floor. She remains awake and alert in no acute distress. Maintaining O2 saturations in the 90s on 3 L/m per nasal cannula. Follow-up blood cultures reveal no growth. Sputum culture with Nayana. She remains on DuoNeb inhalations, Symbicort, Singulair, IV Solu-Medrol. Antibiotics in the form of ceftriaxone. Objective - Vital Signs Vital signs: Vital Signs Temp 97.6 F 08/24/22 07:28 Pulse 92 10/24/22 12:18 Resp 17 08/24/22 07:28 BP 147/93 08/24/22 07:28 Pulse Ox 94 L 08/24/22 07:28 FiO2 Intake & Output 08/23/22 08/24/22 08/24/22 18:59 06:59 18:59 Other: Voiding Method Toilet # Voids 2 # Bowel Movements 0 - Exam GENERAL EXAM: Alert, anxious 52-year-old female, currently on 3 L nasal cannula, comfortable in no apparent distress. HEAD: Normocephalic. EYES: Normal reaction of pupils, equal size. NOSE: Clear with pink turbinates. THROAT: No erythema or exudates. NECK: No masses, no JVD. CHEST: No chest wall deformity. LUNGS: Equal air entry clear, diminished. CVS: S1 and S2 normal with no audible murmur, regular rhythm. ABDOMEN: No hepatosplenomegaly, normal bowel sounds, no guarding or rigidity. SPINE: No scoliosis or deformity SKIN: No rashes CENTRAL NERVOUS SYSTEM: No focal deficits, tone is normal in all 4 extremities. EXTREMITIES: There is no peripheral edema. No clubbing, no cyanosis. Periph eral pulses are intact. - Labs CBC & Chem 7: 08/22/22 07:05 08/22/22 07:05 Labs: Microbiology - Last 24 Hours (Table) 08/21/22 13:37 Blood Culture - Preliminary Blood No Growth after 48 hours Assessment and Plan Assessment: Acute exacerbation of chronic obstructive pulmonary disease, complicated by purulent tracheobronchitis versus community-acquired pneumonia. Procalcitonin 0.10. Remains on ceftriaxone and completed azithromycin Extensive reticulonodular infiltrates, possible underlying pulmonary interstitial fibrosis. No discrete suspicious mass Blood culture positive for staph hominis, currently on ceftriaxone Former smoker Anxiety Plan: The patient was seen and evaluated Cleared for discharge from the pulmonary standpoint Complete prednisone taper starting at 40 mg daily 4 Continue Symbicort, Singulair, albuterol HFA and DuoNeb inhalations Evaluate for possible home oxygen Follow-up in our office in 1 week I have personally seen and examined the patient, performed the documentation and the assessment and plan as written. Number of minutes spent on the visit: 10.
[2022-08-24 13:56] VITALS: BMI 25.0
[2022-08-24] MEDS: MONTELUKAST 10 MG TAB PO SCH (20:12)
[2022-08-25] MEDS: ALPRAZolam 1 MG TAB PO SCH (07:30)
[2022-08-25] MEDS: IPRATROPIUM-ALBUTEROL 3 ML NEB INHALATION SCH ×3 (08:26→16:08)
[2022-08-25] MEDS: SYMBICORT 160-4.5 MCG INHALER INHALATION SCH (08:26)
[2022-08-25] MEDS ORDERED: CEFDINIR 300 MG CAP PO SCH (09:00)
[2022-08-25] MEDS ORDERED: predniSONE 20 MG TAB PO SCH (09:00)
[2022-08-25] MEDS ORDERED: ALPRAZolam 0.5 MG TAB PO PRN (10:08)
--- NOTE | 2022-08-25 12:01 | P.PN ---
Subjective Progress Note Date: 08/25/22 This is a very pleasant 52-year-old female patient with no current primary care provider. She has a history of COPD, former smoking. She does have a nebulizer at home and albuterol rescue inhaler. This was provided by an urgent care visit in the past. Recently she had been exposed to many grandchildren who have been coughing and congested. She developed increasing shortness of breath, cough congestion dyspnea on exertion. Productive cough of green thick sputum. She presented to the emergency room yesterday for the same. Chest x-ray reveals prominent interstitial lung markings scattered throughout the lungs. No evidence of focal consolidation, pneumothorax or pleural effusion. Flattening of the hemidiaphragms with COPD changes. Computed tomography scan of the chest without contrast revealed extensive reticulonodular infiltrates. COPD. Possible pulmonary interstitial fibrosis. No discrete suspicious masses. Blood cultures are revealing no growth. One set of blood cultures was positive for coag-negative staph. White count 20.5. Hemoglobin 11.5. Platelets 535. Sodium 137. Potassium 5.1. BUN 12. Creatinine 0.6. AST 26. ALT 40. Pro- calcitonin 0.15. Chronic virus not detected. Influenza screen negative. She was initiated on vancomycin and DuoNeb inhalations. She is seen today in consultation on the regular medical floor. She is currently resting comfortably in bed. Awake and alert in no acute distress. She is maintaining O2 saturations in the mid 90s on 3 L/m per nasal cannula. Afebrile. Hemodynamically stable. Feeling a bit better today compared to yesterday. Not quite back to her baseline. The patient is seen today to 2021 in follow-up on the regular medical floor. She is awake and alert in no acute distress. Breathing a bit better today compared to yesterday. Not quite back to her baseline. Maintaining O2 saturations in the 90s on 3 L/m per nasal cannula. She remains quite anxious stating that she does have issues with anxiety. Creatinine 0.53. C-reactive protein 12.9. Pro-calcitonin 0.10. Blood cultures reveal coagulase negative staph. She is continued on ceftriaxone and azithromycin. Maintained on Symbicort, DuoNeb inhalations, IV Solu-Medrol, Singulair. Xanax as needed. The patient is seen today 08/20/2022 in follow-up on the regular medical floor. She is currently resting comfortably in bed. Awake and alert in no acute distress. Less anxious today. Maintaining good O2 saturations in the 90s on 2 L/m per nasal cannula. She's afebrile. Hemodynamically stable. Sputum culture pending. Blood culture positive for coag-negative staph. She remains on ceftriaxone and azithromycin. Continued on Symbicort, DuoNeb inhalations, IV Solu-Medrol. The patient is seen today 08/21/2022 in follow-up on the regular medical floor. She is resting comfortably in bed. Awake and alert in no acute distress. A little more relaxed today. Maintaining O2 saturations in the 90s on 2 L/m per nasal cannula. His x-ray continues to show interstitial changes within the lungs, underlying emphysema possible atypical infection, hypersensitivity pneumonitis, infectious bronchiolitis. Similar findings on computed tomography scan of the chest. She remains on ceftriaxone. Blood cultures were positive for staph hominis. Sputum culture positive for Nayana. She is continued on DuoNeb inhalations, Symbicort, IV Solu-Medrol and Singulair. The patient is seen today 08/22/2022 in follow-up on the regular medical floor. She is awake and alert in no acute distress sitting up in bed. Breathing easier today compared to yesterday. Still not quite back to her baseline. Maintaining good O2 saturations in the 90s on 2 L/m per nasal cannula. She is working with the incentive spirometer. Lung sounds remain somewhat diminished. She is continued on Symbicort, DuoNeb inhalations, IV Solu-Medrol and Singulair. Anti biotics in the form of ceftriaxone. Sputum culture was positive for Nayana. Blood cultures positive for staph hominis. ID is on the case. The patient is seen today 08/24/2022 in follow-up on the regular medical floor. She remains awake and alert in no acute distress. Maintaining O2 saturations in the 90s on 3 L/m per nasal cannula. Follow-up blood cultures reveal no growth. Sputum culture with Nayana. She remains on DuoNeb inhalations, Symbicort, Singulair, IV Solu-Medrol. Antibiotics in the form of ceftriaxone. The patient is seen today 08/25/2022 in follow-up on the regular medical floor. She is awake and alert in no acute distress. Resting comfortably in bed. No worsening shortness of breath, cough or congestion. She is currently on oxygen at 3 L/m per nasal cannula. She does desaturate to 86% on room air. She will require home oxygen. Follow-up blood cultures revealed no growth. She is continued on DuoNeb inhalations, Symbicort, prednisone taper. Antibiotics in the form of Omnicef. Objective - Vital Signs Vital signs: Vital Signs Temp 98.2 F 08/25/22 08:00 Pulse 92 08/25/22 11:43 Resp 14 08/25/22 08:00 BP 142/91 08/25/22 08:00 Pulse Ox 92 L 08/25/22 11:10 FiO2 Intake & Output 08/24/22 08/25/22 08/25/22 18:59 06:59 18:59 Weight 62.142 kg Other: # Voids 3 1 - Exam GENERAL EXAM: Alert, pleasant 52-year-old female, currently on 3 L nasal cannula, comfortable in no apparent distress. HEAD: Normocephalic. EYES: Normal reaction of pupils, equal size. NOSE: Clear with pink turbinates. THROAT: No erythema or exudates. NECK: No masses, no JVD. CHEST: No chest wall deformity. LUNGS: Equal air entry clear, diminished. CVS: S1 and S2 normal with no audible murmur, regular rhythm. ABDOMEN: No hepatosplenomegaly, normal bowel sounds, no guarding or rigidity. SPINE: No scoliosis or deformity SKIN: No rashes CENTRAL NERVOUS SYSTEM: No focal deficits, tone is normal in all 4 extremities. EXTREMITIES: There is no peripheral edema. No clubbing, no cyanosis. Peripheral pulses are intact. - Labs CBC & Chem 7: 08/22/22 07:05 08/22/22 07:05 Labs: Microbiology - Last 24 Hours (Table) 08/21/22 13:37 Blood Culture - Preliminary Blood No Growth after 72 hours Assessment and Plan Assessment: Acute exacerbation of chronic obstructive pulmonary disease, complicated by purulent tracheobronchitis versus community-acquired pneumonia. Procalcitonin 0.10. Remains on Omnicef Extensive reticulonodular infiltrates, possible underlying pulmonary interstitial fibrosis. No discrete suspicious mass Blood culture positive for staph hominis, currently on ceftriaxone Former smoker Anxiety Plan: The patient was seen and evaluated Cleared for discharge from the pulmonary standpoint Complete prednisone taper starting at 40 mg daily 4 Continue Symbicort, Singulair, albuterol HFA and DuoNeb inhalations Will require home oxygen initially Follow-up in our office in 1 week We will plan for full pulmonary function testing to evaluate the severity of her COPD I have personally seen and examined the patient, performed the documentation and the assessment and plan as written. Number of minutes spent on the visit: 10.
[2022-08-25 15:30] VITALS: BP 116/71; RESP 16; TEMP 98.3
[2022-08-25 16:18] VITALS: PULSE 90
--- NOTE | 2022-08-26 01:55 | PN ---
PROGRESS NOTE SUBJECTIVE: A 52-year-old white female, still on 3 L oxygen, unable to wean oxygen. Possibly discharge home on oral antibiotics. She needs to be set up for home oxygen as she is desatting without it. Pulmonary recommendations the patient want a bronchoscopy cleared for discharge. Possibly go home on Cipro per Dr. Burgos's recommendations if she can get oxygen and follow up as an outpatient. OBJECTIVE: CARDIOVASCULAR: S1, S2. LUNGS: Scattered rhonchi and wheeze. HEMATOLOGY: Negative for Homans. PSYCH: Fair mood and affect. ASSESSMENT: Bilateral pneumonia, chronic obstructive pulmonary disease, hypoxia, and respiratory failure. Prognosis guarded, possibly set up for oxygen and home antibiotics tomorrow versus bronchoscopy. She will also go home with oxygen as she is desatting. MMODL / IJN: [id number] /
--- NOTE | 2022-08-26 18:44 | DS ---
DISCHARGE SUMMARY HISTORY OF PRESENT ILLNESS: A 52-year-old admitted with bilateral pneumonia, hypoxemic respiratory failure. She is unable to wean off oxygen. She will need to go home with oxygen at 2 L at this time. She was seen by search marketing coordinator for multiple days and Infectious Disease. She had positive blood cultures x2. MEDICATIONS: Will be: 1. Prednisone 40 mg daily for 15 days. 2. Omnicef 300 b.i.d. for 7 days. 3. Symbicort 160/4.5 two puffs b.i.d. 4. DuoNeb q.i.d. 5. Alprazolam 1 mg b.i.d. 6. [place]ba 180 daily. 7. Singulair 10 mg daily. 8. Nasonex 1 to 2 nasal sprays daily. FOLLOWUP: Follow up as an outpatient. CONDITION: Stable. PROGNOSIS: Guarded. HOSPITAL COURSE: She was treated for pneumonia with multiple antibiotics, steroids for COPD. The patient continued to slowly improve. She required oxygen. She is unable to wean off oxygen on discharge after being in the hospital for over a week. She will need to go home with oxygen for a week or 2. We will set up 2 L oxygen nasal cannula. Follow up as an outpatient. MMODL / IJN: [id number] /
== END 2022-08-25 17:09 | disposition home or self-care (01) | DRG 193 ==
LOC: EC 13:55 → 4SSUR 15:19
PROVIDERS: ADMIT Family Medicine; ATTEND Family Medicine
DX: J18.9 Pneumonia, unspecified organism (principal); J96.01 Acute respiratory failure with hypoxia; J43.9 Emphysema, unspecified; Z20.822 Contact with and (suspected) exposure to COVID-19; F41.1 Generalized anxiety disorder; Z28.310 Unvaccinated for COVID-19; Z79.899 Other long term (current) drug therapy; Z87.891 Personal history of nicotine dependence
CPT/HCPCS: 36415; 71045; 71046; 71250; 80053; 82565; 83605; 83880; 84145; 85025; 85610; 85730; 86140; 87040; 87070; 87077; 87186; 87205; 87502; 87635; 94640; 94760; 96365; 96366; 96367; 99285

== ENCOUNTER 2023-02-11 18:26 | Inpatient (IN) | payer MEDICARE, OTHER ==
[2023-02-11] MEDS ORDERED: IBUPROFEN 600 MG TAB PO STA (18:29)
[2023-02-11] MEDS ORDERED: ACETAMINOPHEN TAB 500 MG TAB PO STA (18:29)
[2023-02-11] MEDS ORDERED: methylPREDNISolone SOD SUCCI 125 MG/2 ML VIAL IV STA (18:30)
[2023-02-11] MEDS ORDERED: IPRATROPIUM-ALBUTEROL 3 ML NEB INHALATION STA (19:03)
[2023-02-11 19:13] LABS: Basophils % (A) 0 %; Eosinophils # (A) 0.1 k/uL (0-0.7); Eosinophils % (A) 1 %; HCT 33.1 % (34.0-46.0); HGB 11.2 gm/dL (11.4-16.0); Lymphocytes # (A) 0.8 k/uL (1.0-4.8); Lymphocytes % (A) 6 %; MCH 28.6 pg (25.0-35.0); MCHC 33.8 g/dL (31.0-37.0); MCV 84.7 fL (80.0-100.0); Mean Platelet Volume 8.2; Monocytes # (A) 0.7 k/uL (0-1.0); Monocytes % (A) 5 %; Neutrophils # (A) 11.5 k/uL (1.3-7.7); Neutrophils % (A) 86 %; Platelet Count 247 k/uL (150-450); RBC 3.91 m/uL (3.80-5.40); WBC 13.4 k/uL (3.8-10.6)
[2023-02-11 19:22] LABS: ALT 28 U/L (4-34); AST 38 U/L (14-36); African American GFR (CKD) >90 (>60 ml/min/1.73 sqM); Albumin 3.2 g/dL (3.5-5.0); Alkaline Phosphatase 111 U/L (38-126); Anion Gap 8 mmol/L; Blood Urea Nitrogen 9 mg/dL (7-17); Carbon Dioxide 24 mmol/L (22-30); Chloride 99 mmol/L (98-107); Glucose 91 mg/dL (74-99); Non-African American GFR(CKD) >90 (>60 ml/min/1.73 sqM); Potassium 4.4 mmol/L (3.5-5.1); Sodium 131 mmol/L (137-145); Total Bilirubin 0.6 mg/dL (0.2-1.3)
[2023-02-11 19:31] LABS: INR 0.9 (<1.2); Partial Thromboplastin Time 23.4 sec (22.0-30.0); Prothrombin Time 9.9 sec (9.0-12.0)
--- NOTE | 2023-02-11 19:44 | XR ---
EXAMINATION: XR chest 2V: 02/11/2023 6:57 PM CLINICAL INDICATION: Fever TECHNIQUE: Frontal and lateral views COMPARISON: 09/22/2022 FINDINGS: There is diffuse silhouetting of the pulmonary vasculature throughout the lungs bilaterally in the up per, mid, and lower lung zones, by ill-defined multifocal added opacities which have the radiographic appearance of multifocal bronchopneumonia. These changes are predominantly new since 09/12/2022 radiograph where there is an evident baseline co arse reticular pattern consistent suggesting chronic interstitial lung changes. The pleural spaces are negative. The cardiac silhouette is not enlarged. The skeletal structures and soft tissues are negative for acute findings. IMPRESSION: Abnormal lung parenchyma suggesting multifocal bronchopneumonia. Would suggest 3 month follow-up CT c hest to prove resolution and establish baseline.
[2023-02-11] MEDS: SODIUM CHLORIDE 0.9% 500 ML 500 ML IV SCH ×2 (19:56→20:44)
--- NOTE | 2023-02-11 19:57 | ED ---
General Adult HPI - General Chief complaint: Shortness of Breath Stated complaint: HAYLEY Time Seen by Provider: 02/11/23 18:26 Source: patient, EMS, RN notes reviewed, old records reviewed Mode of arrival: EMS Limitations: no limitations - History of Present Illness Initial comments: This is a 52-year-old female presents emergency Department patient is a history of COPD. Patient comes in today because of difficulty breathing which is getting progressively worse. Patient also has a high fever and she was around somebody with strep throat. Patient states she does have a cough. Patient does continue to smoke. Patient denies any chest pain or palpitations. Patient denies any lightheadedness or dizziness. Patient denies any abdominal pain patient's nausea vomiting diarrhea. Patient denies any swelling to legs or calf tenderness. - Related Data Home Medications Medication Instructions Recorded Confirmed Albuterol Inhaler [Ventolin Hfa 2 puff INHALATION RT-Q4H PRN 08/17/22 02/11/23 Inhaler] Ipratropium-Albuterol Nebulize 3 ml INHALATION RT-QID PRN 08/17/22 02/11/23 [Duoneb 0.5 mg-3 mg/3 ml Soln] Montelukast [Singulair] 10 mg PO HS 08/17/22 02/11/23 Budesonide-Formot 160-4.5 Mcg 1 puff INHALATION RT-BID 02/11/23 02/11/23 [Symbicort 160-4.5 Mcg Inhaler] Cyanocobalamin (Vitamin B-12) 1,000 mcg PO DAILY 02/11/23 02/11/23 [Vitamin B-12] Multivit-Min/FA/Lycopen/Lutein 1 tab PO DAILY 02/11/23 02/11/23 [Centrum Silver Tablet] Allergies Allergy/AdvReac Type Severity Reaction Status Date / Time No Known Allergies Allergy Verified 08/17/22 14:29 Review of Systems ROS Statement: Those systems with pertinent positive or pertinent negative responses have been documented in the HPI. ROS Other: All systems not noted in ROS Statement are negative. Past Medical History Past Medical History: Asthma, COPD History of Any Multi-Drug Resistant Organisms: None Reported Past Surgical History: Tonsillectomy, Tubal Ligation Past Anesthesia/Blood Transfusion Reactions: No Reported Reaction Past Psychological History: Anxiety Smoking Status: Former smoker Past Alcohol Use History: None Reported Past Drug Use History: None Reported General Exam - General Exam Comments Initial Comments: GENERAL: Patient is well-developed and well-nourished. Patient is nontoxic and well- hydrated and is in moderate distress. ENT: Neck is soft and supple. No significant lymphadenopathy is noted. Oropharynx is clear. Moist mucous membranes. Neck has full range of motion without eliciting any pain. EYES: The sclera were anicteric and conjunctiva were pink and moist. Extraocular movements were intact and pupils were equal round and reactive to light. Eyelids were unremarkable. PULMONARY: Significant diminished breath sounds diffusely CARDIOVASCULAR: There is a regular rate and rhythm without any murmurs gallops or rubs. ABDOMEN: Soft and nontender with normal bowel sounds. SKIN: Skin is clear with no lesions or rashes and otherwise unremarkable. NEUROLOGIC: Patient is alert and oriented x3. Cranial nerves II through XII are grossly intact. Motor and sensory are also intact. Normal speech, volume and content. Symmetrical smile. MUSCULOSKELETAL: Normal extremities with adequate strength and full range of motion. LYMPHATICS: No significant lymphadenopathy is noted PSYCHIATRIC: Normal psychiatric evaluation. Limitations: no limitations Course Vital Signs 02/11/23 02/11/23 02/11/23 18:33 19:36 19:43 Temperature 104.1 F H Pulse Rate 137 H 122 H 121 H Respiratory 40 H Rate Blood Pressure 120/85 O2 Sat by Pulse 97 Oximetry 02/11/23 20:03 Temperature 99.1 F Pulse Rate 118 H Respiratory 26 H Rate Blood Pressure 101/66 O2 Sat by Pulse 96 Oximetry Medical Decision Making - Medical Decision Making EKG is interpreted by myself shows a sinus tachycardia at 125 bpm [place] interval 227 dresses 84 Q-T intervals 26 and QTc is 343. Patient's EKG shows no ST segment elevation or depression. Was pt. sent in by a medical professional or institution (, PA, EXPERIMENTAL [employer], urgent care, hospital, or retirement...) When possible be specific @ -No Did you speak to anyone other than the patient for history (EMS, parent, family, police, friend...)? What history was obtained from this source @ -EMS gave most of the history because the sole leather cutting machine operator was the daughter as well as the sole leather cutting machine operator on the case Did you review nursing and triage notes (agree or disagree)? Why? @ -I reviewed and agree with nursing and triage notes Were old charts reviewed (outside hosp., previous admission, EMS record, old EKG, old radiological studies, urgent care reports/EKG's, retirement records)? Report findings @ -I reviewed prior lab work and x-rays Differential Diagnosis (chest pain, altered mental status, abdominal pain women, abdominal pain men, vaginal bleeding, weakness, fever, dyspnea, syncope, headache, dizziness, GI bleed, back pain, seizure, CVA, palpatations, mental health, musculoskeletal)? @ -Differential Dyspnea: Coronary syndrome, arrhythmia, tamponade, asthma, COPD, pulmonary embolism, pneumonia, pneumothorax, pulmonary effusion, anaphylaxis, diabetic ketoacidosis, flailed chest, pulmonary contusion, diaphragmatic rupture, anemia, neuromuscular, this is not meant to be an all-inclusive list. EKG interpreted by me (3pts min.). @ -As above X-rays interpreted by me (1pt min.). @ -Chest x-ray is interpreted by myself which shows multiple local pneumonia. CT interpreted by me (1pt min.). @ -None done U/S interpreted by me (1pt. min.). @ -None done What testing was considered but not performed or refused? (CT, X-rays, U/S, lab s)? Why? @ -None What meds were considered but not given or refused? Why? @ -None Did you discuss the management of the patient with other professionals (professionals i.e. , PA, EXPER[employer], lab, RT, psych nurse, social media specialist, condominium manager, teacher, space officer, shelter case manager)? Give summary @ -Was [facility] hospitalist he agreed to admit the patient admitted the patient wrote admitting orders Was smoking cessation discussed for >3mins.? @ -No Was critical care preformed (if so, how long)? @ -No Were there social determinants of health that impacted care today? How? (Homelessness, low income, unemployed, alcoholism, drug addiction, transportation, low edu. Level, literacy, decrease access to med. care, penitentiary, rehab)? @ -No Was there de-escalation of care discussed even if they declined (Discuss DNR or withdrawal of care, Hospice)? DNR status @ -No What co-morbidities impacted this encounter? (DM, HTN, Smoking, COPD, CAD, Ca ncer, CVA, ARF, Chemo, Hep., AIDS, mental health diagnosis, sleep apnea, morbid obesity)? @ -None Was patient admitted / discharged? Hospital course, mention meds given and route, prescriptions, significant lab abnormalities, going to OR and other pertinent info. @ -Patient came and got multiple breathing treatments as well as steroids and antibiotics for what appeared to be a multifocal pneumonia. Patient was feeling considerably better but still not were baseline. I spoke with [facility] hospitalist he agreed to admit the patient admitted the patient I wrote admitting orders and continue outpatient breathing treatments steroids and antibiotics. Undiagnosed new problem with uncertain prognosis? @ -No Drug Therapy requiring intensive monitoring for toxicity (Heparin, Nitro, Insulin, Cardizem)? @ -No Were any procedures done? @ -No Diagnosis/symptom? @ -COPD exacerbation Acute, or Chronic, or Acute on Chronic? @ -Acute Uncomplicated (without systemic symptoms) or Complicated (systemic symptoms)? @ -Complicated Side effects of treatment? @ -No Exacerbation, Progression, or Severe Exacerbation? @ -Severe exacerbation Poses a threat to life or bodily function? How? (Chest pain, USA, MD, pneumonia, PE, COPD, DKA, ARF, appy, cholecystitis, CVA, Diverticulitis, Homicidal, Suicidal, threat to staff... and all critical care pts) @ -Yes this could lead to hypoxia which could lead end organ dysfunction Diagnosis/symptom? @ -Pneumonia Acute, or Chronic, or Acute on Chronic? @ -Acute Uncomplicated (without systemic symptoms) or Complicated (systemic symptoms)? @ -Complicated Side effects of treatment? @ -none Exacerbation, Progression, or Severe Exacerbation] @ -no Poses a threat to life or bodily function? @ -Yes this can lead to sepsis which could lead end organ dysfunction - Lab Data Result diagrams: 02/11/23 18:30 02/11/23 18:30 Lab Results 02/11/23 02/11/23 02/11/23 Range/Units 18:30 18:30 18:30 WBC 13.4 H (3.8-10.6) k/uL RBC 3.91 (3.80-5.40) m/uL Hgb 11.2 L (11.4-16.0) gm/dL Hct 33.1 L (34.0-46.0) % MCV 84.7 (80.0-100.0) fL MCH 28.6 (25.0-35.0) pg MCHC 33.8 (31.0-37.0) g/dL RDW 15.0 (11.5-15.5) % Plt Count 247 (150-450) k/uL MPV 8.2 Neutrophils % 86 % Lymphocytes % 6 % Monocytes % 5 % Eosinophils % 1 % Basophils % 0 % Neutrophils # 11.5 H (1.3-7.7) k/uL Lymphocytes # 0.8 L (1.0-4.8) k/uL Monocytes # 0.7 (0-1.0) k/uL Eosinophils # 0.1 (0-0.7) k/uL Basophils # 0.0 (0-0.2) k/uL PT 9.9 (9.0-12.0) sec INR 0.9 (<1.2) APTT 23.4 (22.0-30.0) sec Sodium 131 L (137-145) mmol/L Potassium 4.4 (3.5-5.1) mmol/L Chloride 99 (98-107) mmol/L Carbon Dioxide 24 (22-30) mmol/L Anion Gap 8 mmol/L BUN 9 (7-17) mg/dL Creatinine 0.55 (0.52-1.04) mg/dL Est GFR (CKD-EPI)AfAm >90 (>60 ml/min/1.73 sqM) Est GFR (CKD-EPI)NonAf >90 (>60 ml/min/1.73 sqM) Glucose 91 (74-99) mg/dL Plasma Lactic Acid Adrian (0.7-2.0) mmol/L Calcium 8.0 L (8.4-10.2) mg/dL Total Bilirubin 0.6 (0.2-1.3) mg/dL AST 38 H (14-36) U/L ALT 28 (4-34) U/L Alkaline Phosphatase 111 (38-126) U/L Total Protein 6.0 L (6.3-8.2) g/dL Albumin 3.2 L (3.5-5.0) g/dL Influenza Type A (PCR) (Not Detectd) Influenza Type B (PCR) (Not Detectd) RSV (PCR) (Not Detectd) SARS-CoV-2 (PCR) (Not Detectd) Group A Strep (PCR) (Not Detectd) 02/11/23 02/11/23 02/11/23 Range/Units 18:30 19:16 19:16 WBC (3.8-10.6) k/uL RBC (3.80-5.40) m/uL Hgb (11.4-16.0) gm/dL Hct (34.0-46.0) % MCV (80.0-100.0) fL MCH (25.0-35.0) pg MCHC (31.0-37.0) g/dL RDW (11.5-15.5) % Plt Count (150-450) k/uL MPV Neutrophils % % Lymphocytes % % Monocytes % % Eosinophils % % Basophils % % Neutrophils # (1.3-7.7) k/uL Lymphocytes # (1.0-4.8) k/uL Monocytes # (0-1.0) k/uL Eosinophils # (0-0.7) k/uL Basophils # (0-0.2) k/uL PT (9.0-12.0) sec INR (<1.2) APTT (22.0-30.0) sec Sodium (137-145) mmol/L Potassium (3.5-5.1) mmol/L Chloride (98-107) mmol/L Carbon Dioxide (22-30) mmol/L Anion Gap mmol/L BUN (7-17) mg/dL Creatinine (0.52-1.04) mg/dL Est GFR (CKD-EPI)AfAm (>60 ml/min/1.73 sqM) Est GFR (CKD-EPI)NonAf (>60 ml/min/1.73 sqM) Glucose (74-99) mg/dL Plasma Lactic Acid Adrian 0.8 (0.7-2.0) mmol/L Calcium (8.4-10.2) mg/dL Total Bilirubin (0.2-1.3) mg/dL AST (14-36) U/L ALT (4-34) U/L Alkaline Phosphatase (38-126) U/L Total Protein (6.3-8.2) g/dL Albumin (3.5-5.0) g/dL Influenza Type A (PCR) Not Detected (Not Detectd) Influenza Type B (PCR) Not Detected (Not Detectd) RSV (PCR) Not Detected (Not Detectd) SARS-CoV-2 (PCR) Not Detected (Not Detectd) Group A Strep (PCR) NOT DETECTED (Not Detectd) Disposition Clinical Impression: COPD with acute exacerbation, Pneumonia Disposition: ADMITTED IP TO THIS HOSP Referrals: None,Stated [Primary Care Provider] - 1-2 days Time of Disposition: 20:31
[2023-02-11] MEDS ORDERED: NALOXONE 0.4 MG/ML 1 ML VIAL IVP PRN (20:33)
[2023-02-11] MEDS ORDERED: IPRATROPIUM-ALBUTEROL 3 ML NEB INHALATION PRN (20:33)
[2023-02-12] MEDS: methylPREDNISolone SOD SUCCI 125 MG/2 ML VIAL IV SCH ×5 (00:09→23:28)
[2023-02-12] MEDS: IPRATROPIUM-ALBUTEROL 3 ML NEB INHALATION SCH ×4 (07:31→19:42)
[2023-02-12] MEDS ORDERED: AMOXIC-POT CLAV 875-125MG 1 EACH TAB PO SCH (09:00)
[2023-02-12] MEDS: AZITHROMYCIN 500 MG TAB PO SCH (10:54)
--- NOTE | 2023-02-12 11:03 | P.HPIM ---
History of Present Illness This is a pleasant 52 years old female with past medical history of COPD Presents because of worsening dyspnea , Has been worsening especially over the last 3 days. Patient reports history of upper respiratory tract infection, she states she was taking care of her grandkids and they were sick at least 2 of them. Then she started having some runny nose and gradually was getting worse She stated that she has history of COPD about 5 years ago, she quit smoking prior to that. 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 Currently patient lying in bed feels no energy and weak with no appendectomy diets and she has not eaten well over the last few days. She denies chest pain but she feels some heaviness. She is making some green phlegm which started today. No abdominal pain vomiting or diarrhea. No urinary complaints. No active disease next weakness or numbness. Comment smoking, no alcohol or illicit drugs. Patient hemodynamically stable, blood pressure 95/70. She is saturating 95% on 2 L oxygen via nasal cannula. Patient is afebrile currently but had a fever of 104.1 on admission On admission she has mild leukocytosis of 13.4 hemoglobin 11.2. Rest of CBC is unremarkable. INR 0.9. Sodium 131. Rest of BMP and liver enzymes were unremarkable. Plasma lactic acid is low. Viruses of undetected including influenza, RSV and zuniga virus Group A strep PCR is negative. EKG showing sinus tachycardia around 125. No significant ST-T changes. Chest x-ray: Normal parenchyma suggesting multifocal bronchopneumonia in emergency room patient was started on ceftriaxone and Solu-Medrol and then continued on Augmentin. Review of Systems Review of systems CONSTITUTIONAL: No fever, HEENT: No recent visual problems or hearing problems. Denied any sore throat. CARDIOVASCULAR: No orthopnea, PND, no palpitations, no syncope. -PULMONARY: No chest wall tenderness, no hemoptysis. GASTROINTESTINAL: No diarrhea, no nausea, no vomiting, no abdominal pain. Normoactive bowel sounds. NEUROLOGICAL: No headaches, no weakness, no numbness. HEMATOLOGICAL: Denies any bleeding or petechiae. GENITOURINARY: Denies any burning micturition, frequency, or urgency. MUSCULOSKELETAL/RHEUMATOLOGICAL: Denies any joint pain, swelling, or any muscle pain. ENDOCRINE: Denies any polyuria or polydipsia. Past Medical History Past Medical History: Asthma, COPD History of Any Multi-Drug Resistant Organisms: None Reported Past Surgical History: Tonsillectomy, Tubal Ligation Past Anesthesia/Blood Transfusion Reactions: No Reported Reaction Past Psychological History: Anxiety Smoking Status: Former smoker Past Alcohol Use History: None Reported Past Drug Use History: None Reported Medications and Allergies Home Medications Medication Instructions Recorded Confirmed Type Albuterol Inhaler [Ventolin Hfa 2 puff INHALATION RT-Q4H PRN 08/17/22 02/11/23 History Inhaler] Ipratropium-Albuterol Nebulize 3 ml INHALATION RT-QID PRN 08/17/22 02/11/23 History [Duoneb 0.5 mg-3 mg/3 ml Soln] Montelukast [Singulair] 10 mg PO HS 08/17/22 02/11/23 History Budesonide-Formot 160-4.5 Mcg 1 puff INHALATION RT-BID 02/11/23 02/11/23 History [Symbicort 160-4.5 Mcg Inhaler] Cyanocobalamin (Vitamin B-12) 1,000 mcg PO DAILY 02/11/23 02/11/23 History [Vitamin B-12] Multivit-Min/FA/Lycopen/Lutein 1 tab PO DAILY 02/11/23 02/11/23 History [Centrum Silver Tablet] Allergies Allergy/AdvReac Type Severity Reaction Status Date / Time No Known Allergies Allergy Verified 08/17/22 14:29 Physical Exam Vitals: Vital Signs Temp Pulse Pulse Resp BP BP Pulse Ox 02/12/23 08:00 97.6 F 80 22 95/70 95 02/12/23 07:40 72 02/12/23 07:31 82 02/12/23 03:47 97.6 F 75 22 101/73 98 02/11/23 23:58 97.6 F 81 20 111/73 98 02/11/23 22:00 97.7 F 95 24 112/74 98 02/11/23 21:30 99 28 H 113/74 98 02/11/23 21:00 105 H 26 H 115/78 97 02/11/23 20:54 109 H 26 H 115/78 98 02/11/23 20:30 110 H 33 H 97 02/11/23 20:20 113 H 28 H 97 02/11/23 20:10 112 H 40 H 96 02/11/23 20:03 99.1 F 118 H 26 H 101/66 96 02/11/23 20:02 117 H 37 H 95 02/11/23 19:43 121 H 02/11/23 19:36 122 H 02/11/23 18:33 104.1 F H 137 H 40 H 120/85 97 Intake and Output 02/11/23 02/12/23 02/12/23 22:59 06:59 14:59 Other: Weight 54.885 kg 54.885 kg -GENERAL: The patient is alert and oriented x3, not in any acute distress. Well developed, well nourished. Weak and lethargic HEENT: Pupils are round and equally reacting to light. EOMI. No scleral icterus. No conjunctival pallor. Normocephalic, atraumatic. No pharyngeal erythema. No thyromegaly. CARDIOVASCULAR: S1 and S2 present. No murmurs, rubs, or gallops. -PULMONARY: Chest is clear to auscultation, bilateral no wheezing and some bronchial breath sounds ABDOMEN: Soft, nontender, nondistended, normoactive bowel sounds. No palpable organomegaly. MUSCULOSKELETAL: No joint swelling or deformity. EXTREMITIES: No cyanosis, clubbing, or pedal edema. NEUROLOGICAL: Gross neurological examination did not reveal any focal deficits. SKIN: No rashes. no petechiae. Results CBC & Chem 7: 02/11/23 18:30 02/11/23 18:30 Labs: Abnormal Lab Results - Last 24 Hours (Table) 02/11/23 02/11/23 02/12/23 Range/Units 18:30 18:30 01:23 WBC 13.4 H (3.8-10.6) k/uL Hgb 11.2 L (11.4-16.0) gm/dL Hct 33.1 L (34.0-46.0) % Neutrophils # 11.5 H (1.3-7.7) k/uL Lymphocytes # 0.8 L (1.0-4.8) k/uL Sodium 131 L (137-145) mmol/L Plasma Lactic Acid Adrian 0.6 L (0.7-2.0) mmol/L Calcium 8.0 L (8.4-10.2) mg/dL AST 38 H (14-36) U/L Total Protein 6.0 L (6.3-8.2) g/dL Albumin 3.2 L (3.5-5.0) g/dL Thrombosis Risk Factor Assmnt - Choose All That Apply Any of the Below Risk Factors Present?: Yes Each Factor Represents 1 point: Abnormal pulmonary function (COPD), Age 41-60 years Thrombosis Risk Factor Assessment Total Risk Factor Score: 2 Thrombosis Risk Factor Assessment Level: Low Risk Assessment and Plan Assessment: Acute community acquired bronchopneumonia , More on the left side Acute COPD exacerbation Mild sepsis secondary to above Plan: Continue with antibiotic ceftriaxone and Zithromax Continue with gentle hydration Continue with IV Solu-Medrol Continue with bronchodilator send sputum culture, discussed with stafft Pulmonary team consul Labs and medication were reviewed.. Continue same treatment. Continue with symptomatic treatment. Resume home medication. Monitor labs and vitals. DVT and GI prophylaxis. Further recommendations as per clinical course of the patient DVT prophylaxis: Subcutaneous heparin GI Prophylaxis: Pepcid PT/OT: Pending Prognosis is guarded
--- NOTE | 2023-02-12 14:26 | P.CNPUL ---
History of Present Illness Consult date: 02/12/23 Requesting physician: Irving Power Reason for consult: dyspnea, cough, COPD, hypoxemia, abnormal CXR/CT Chief complaint: Shortness of breath. History of present illness: Pulmonary consult dated 02/12/2023. 52-year-old patient with a previous history of tobacco use for about 30 years. The patient does have a history of COPD, and was inpatient here August 2022, at which time she saw my partner, and our nurse practitioner. The patient comes back into the hospital, complaining of shortness of breath, fever. His prior to admission. She was seen in the emergency room, and admitted to the hospital for a COPD exacerbation. She denies smoking although the ER tyra states that she does continue to smoke. She apparently smoked on and off for 30+ years. She does use oxygen at home. She states she has no family doctor. She does have a nebulizer machine at home, albuterol, and Symbicort. Currently, she is on 2 L of oxygen, and getting saline at 20 mL an hour. She seen in ER room 17. White count 13.4, hemoglobin 11.2, hematocrit 33.1, and platelet count 247,000. Sodium 131, potassium 4.4, chlorides 99, CO2 24, BUN 9, creatinine 0.55. Testing for influenza A, influenza B, respiratory syncytial virus, coronavirus, and group A strep, all negative. Chest x-ray shows some patchy by lateral infiltrates. Some of which may be acute and some of which may be more chronic in nature. Review of Systems REVIEW OF SYSTEMS: CONSTITUTIONAL: [Negative.] NEUROLOGIC: [ Negative.] HEENT: [ Negative.] CARDIAC: [Negative.] PULMONARY: Shortness of breath, cough, wheezing, chest tightness. GI: [Negative.] : [Negative.] RHEUMATOLOGIC: [ Negative.] IMMUNOLOGIC: [ Negative.] ENDOCRINE: [Negative. ] DERMATOLOGIC: [Negative.] Past Medical History Past Medical History: Asthma, COPD History of Any Multi-Drug Resistant Organisms: None Reported Past Surgical History: Tonsillectomy, Tubal Ligation Past Anesthesia/Blood Transfusion Reactions: No Reported Reaction Past Psychological History: Anxiety Smoking Status: Former smoker Past Alcohol Use History: None Reported Past Drug Use History: None Reported Medications and Allergies Home Medications Medication Instructions Recorded Confirmed Type Albuterol Inhaler [Ventolin Hfa 2 puff INHALATION RT-Q4H PRN 08/17/22 02/11/23 History Inhaler] Ipratropium-Albuterol Nebulize 3 ml INHALATION RT-QID PRN 08/17/22 02/11/23 History [Duoneb 0.5 mg-3 mg/3 ml Soln] Montelukast [Singulair] 10 mg PO HS 08/17/22 02/11/23 History Budesonide-Formot 160-4.5 Mcg 1 puff INHALATION RT-BID 02/11/23 02/11/23 History [Symbicort 160-4.5 Mcg Inhaler] Cyanocobalamin (Vitamin B-12) 1,000 mcg PO DAILY 02/11/23 02/11/23 History [Vitamin B-12] Multivit-Min/FA/Lycopen/Lutein 1 tab PO DAILY 02/11/23 02/11/23 History [Centrum Silver Tablet] Allergies Allergy/AdvReac Type Severity Reaction Status Date / Time No Known Allergies Allergy Verified 08/17/22 14:29 Physical Exam Osteopathic Statement: *. No significant issues noted on an osteopathic structural exam other than those noted in the History and Physical/Consult. Vitals: Vital Signs Temp Pulse Pulse Resp BP BP Pulse Ox 02/12/23 11:33 80 02/12/23 11:26 96 02/12/23 11:24 75 02/12/23 11:15 85 20 117/93 97 02/12/23 08:00 97.6 F 80 22 95/70 95 02/12/23 07:40 72 02/12/23 07:31 82 02/12/23 03:47 97.6 F 75 22 101/73 98 02/11/23 23:58 97.6 F 81 20 111/73 98 02/11/23 22:00 97.7 F 95 24 112/74 98 02/11/23 21:30 99 28 H 113/74 98 02/11/23 21:00 105 H 26 H 115/78 97 02/11/23 20:54 109 H 26 H 115/78 98 02/11/23 20:30 110 H 33 H 97 02/11/23 20:20 113 H 28 H 97 02/11/23 20:10 112 H 40 H 96 02/11/23 20:03 99.1 F 118 H 26 H 101/66 96 02/11/23 20:02 117 H 37 H 95 02/11/23 19:43 121 H 02/11/23 19:36 122 H 02/11/23 18:33 104.1 F H 137 H 40 H 120/85 97 Intake and Output 02/11/23 02/12/23 02/12/23 22:59 06:59 14:59 Other: Weight 54.885 kg 54.885 kg No acute distress, oriented 3. No conversational dyspnea or use of accessory muscles. Currently on 2 L of oxygen. HEENT examination is grossly unremarkable. Neck supple. Full range of motion. No adenopathy thyromegaly or neck vein distention. Cardiovascular examination reveals regular rhythm rate. S1-S2 normal. No S3 or S4. No discernible murmur noted. Heart sounds are distant. Heart rate 80 bpm. Lungs reveal diffuse coarse inspiratory and expiratory wheezes and rhonchi. Breath sounds are equal bilaterally. No crackles. There is prolongation on forced maneuver. Adventitious lung sounds are more prominent on forced maneuver. Abdomen soft bowel sounds are heard. No masses or tenderness. Extremities are intact. No cyanosis clubbing or edema. Skin is without rash or lesion. Neurologic examination is brief but nonfocal. Results - Laboratory Findings CBC and BMP: 02/11/23 18:30 02/11/23 18:30 PT/INR, D-dimer PT 9.9 sec (9.0-12.0) 02/11/23 18:30 INR 0.9 (<1.2) 02/11/23 18:30 Abnormal lab findings: Abnormal Labs 02/11/23 02/11/23 02/12/23 18:30 18:30 01:23 WBC 13.4 H Hgb 11.2 L Hct 33.1 L Neutrophils # 11.5 H Lymphocytes # 0.8 L Sodium 131 L Plasma Lactic Acid Adrian 0.6 L Calcium 8.0 L AST 38 H Total Protein 6.0 L Albumin 3.2 L - Diagnostic Findings Chest x-ray: image reviewed Assessment and Plan Assessment: Acute hypoxemic respiratory failure secondary to an acute exacerbation of chronic obstructive pulmonary disease. Prior history of heavy tobacco use, for many years. Chronic changes on chest x-ray/computed tomography scan. History of anxiety. Chronic hypoxemic respiratory failure. Plan: Plan dated 02/12/2023. The patient is seen and examined, down in the emergency room, labs, x-rays, and medications all reviewed. The patient was given Rocephin and azithromycin. The patient was also given Symbicort 160/4.5, 2 puffs twice a day. We'll check a pro-calcitonin level. The patient is getting updrafts with albuterol sulfate and ipratropium bromide. This should be 4 times a day and when necessary. The patient's also getting Solu-Medrol 60 mg every 6 hours. We will continue to follow make recommendations were appropriate. The pro-calcitonin level is low, antibiotics can be de-escalated. Some the changes seen on the chest x-ray may be more chronic given the CAT scan report from last fall. Time with Patient: Greater than 30
[2023-02-12] MEDS: BUDESONIDE 1 MG/2 ML NEBU INHALATION SCH (19:42)
[2023-02-12] MEDS: FORMOTEROL FUMARATE 20 MCG/2 ML NEBU INHALATION SCH (19:42)
[2023-02-12] MEDS ORDERED: SYMBICORT 160-4.5 MCG INHALER INHALATION SCH (20:00)
[2023-02-12] MEDS: FAMOTIDINE 20 MG/2 ML VIAL IV SCH (20:54)
[2023-02-12] MEDS: HEPARIN SODIUM,PORCINE/PF 5,000 UNIT/0.5 ML SYRINGE SQ SCH (20:54)
[2023-02-12] MEDS: MONTELUKAST 10 MG TAB PO SCH (20:54)
[2023-02-13] MEDS: methylPREDNISolone SOD SUCCI 125 MG/2 ML VIAL IV SCH ×4 (06:40→23:52)
[2023-02-13] MEDS: IPRATROPIUM-ALBUTEROL 3 ML NEB INHALATION SCH ×4 (08:12→19:46)
[2023-02-13] MEDS: BUDESONIDE 1 MG/2 ML NEBU INHALATION SCH ×2 (08:12→19:46)
[2023-02-13] MEDS: FORMOTEROL FUMARATE 20 MCG/2 ML NEBU INHALATION SCH ×2 (08:29→19:46)
--- NOTE | 2023-02-13 08:36 | P.PN ---
Subjective Progress Note Date: 02/13/23 52-year-old patient with a previous history of tobacco use for about 30 years. The patient does have a history of COPD, and was inpatient here August 2022, at which time she saw my partner, and our nurse practitioner. The patient comes back into the hospital, complaining of shortness of breath, fever. His prior to admission. She was seen in the emergency room, and admitted to the hospital for a COPD exacerbation. She denies smoking although the ER tyra states that she does continue to smoke. She apparently smoked on and off for 30+ years. She does use oxygen at home. She states she has no family doctor. She does have a nebulizer machine at home, albuterol, and Symbicort. Currently, she is on 2 L of oxygen, and getting saline at 20 mL an hour. She seen in ER room 17. White count 13.4, hemoglobin 11.2, hematocrit 33.1, and platelet count 247,000. Sodium 131, potassium 4.4, chlorides 99, CO2 24, BUN 9, creatinine 0.55. Testing for influenza A, influenza B, respiratory syncytial virus, coronavirus, and group A strep, all negative. Chest x-ray shows some patchy by lateral infiltrates. Some of which may be acute and some of which may be more chronic in nature. The patient is seen today for 02/13/2023 in follow-up on the regular medical floor. She is currently sitting up in bed. Awake and alert in no acute distress. Breathing a bit easier today compared to yesterday. Not quite back to her baseline. Still with a loose nonproductive cough. Some chest tightness and wheezing. Maintaining O2 saturations in the 90s on 2 L/m per nasal cannula. Normal saline 20 mg per hour. Blood cultures reveal no growth to date. Sputum culture pending. Pro-calcitonin 0.47. She remains on ceftriaxone and azithromycin. Continue on DuoNeb inhalations, Pulmicort and Perforomist inhalations, IV Solu-Medrol. She states she did quit smoking several years ago. She used to vape for her anxiety but states that did not help and she has not been vaping lately either. Objective - Vital Signs Vital signs: Vital Signs Temp 97.3 F L 02/13/23 01:57 Pulse 100 02/13/23 08:30 Resp 16 02/13/23 01:57 BP 113/71 02/13/23 01:57 Pulse Ox 97 02/13/23 01:57 FiO2 Intake & Output 02/12/23 02/13/23 02/13/23 18:59 06:59 18:59 Other: Voiding Method Toilet # Voids 1 2 - Exam GENERAL EXAM: Alert, pleasant 52-year-old female, sitting up in bed, on 2 L nasal cannula, fairly comfortable in no apparent distress. HEAD: Normocephalic. EYES: Normal reaction of pupils, equal size. NOSE: Clear with pink turbinates. THROAT: No erythema or exudates. NECK: No masses, no JVD. CHEST: No chest wall deformity. LUNGS: Equal air entry with bilateral end expiratory wheeze, diminished. CVS: S1 and S2 normal with no audible murmur, regular rhythm. ABDOMEN: No hepatosplenomegaly, normal bowel sounds, no guarding or rigidity. SPINE: No scoliosis or deformity SKIN: No rashes CENTRAL NERVOUS SYSTEM: No focal deficits, tone is normal in all 4 extremities. EXTREMITIES: There is no peripheral edema. No clubbing, no cyanosis. Peripheral pulses are intact. - Labs CBC & Chem 7: 02/11/23 18:30 02/11/23 18:30 Labs: Abnormal Lab Results - Last 24 Hours (Table) 02/12/23 Range/Units 15:13 Procalcitonin 0.47 H (0.02-0.09) ng/mL Microbiology - Last 24 Hours (Table) 02/12/23 01:23 Blood Culture - Preliminary Blood No Growth after 24 hours 02/12/23 20:19 Sputum Culture - Preliminary Sputum 02/11/23 18:45 Blood Culture - Preliminary Blood No Growth after 24 hours 02/11/23 18:30 Blood Culture - Preliminary Blood No Growth after 24 hours Assessment and Plan Assessment: Acute hypoxemic respiratory failure secondary to an acute exacerbation of chronic obstructive pulmonary disease. Possible underlying community-acquired pneumonia. Pro-calcitonin 0.47. Currently on ceftriaxone and azithromycin. Sputum culture pending Prior history of heavy tobacco use, for many years. History of vaping History of anxiety. Chronic hypoxemic respiratory failure. Plan: The patient was seen and evaluated Medications and labs reviewed Procalcitonin 0.47 Continue ceftriaxone and azithromycin Continue bronchodilators, IV Solu-Medrol Titrate her FiO2 as tolerated Increase her activity as tolerated We'll continue to follow I have personally seen and examined the patient, performed the documentation and the assessment and plan as written. Number of minutes spent on the visit: 10.
[2023-02-13] MEDS: HEPARIN SODIUM,PORCINE/PF 5,000 UNIT/0.5 ML SYRINGE SQ SCH ×2 (09:00→21:28)
[2023-02-13] MEDS: AZITHROMYCIN 500 MG TAB PO SCH (09:00)
[2023-02-13] MEDS: FAMOTIDINE 20 MG/2 ML VIAL IV SCH (09:01)
[2023-02-13 09:51] LABS: African American GFR (CKD) 128.1 (60.0-200.0); Anion Gap 9.6 mmol/L (10.00-18.00); BUN/Creat Ratio 26.2 Ratio (12.00-20.00); Blood Urea Nitrogen 13.1 mg/dL (9.0-27.0); Calcium 9.1 mg/dL (8.7-10.3); Carbon Dioxide 24.4 mmol/L (20.0-27.5); Non-African American GFR(CKD) 110.5 (60.0-200.0); Potassium 4.2 mmol/L (3.5-5.5)
[2023-02-13 09:52] LABS: Basophils # (A) 0.03 X 10*3/uL (0.00-0.10); Basophils % (A) 0.2 %; Eosinophils # (A) 0 X 10*3/uL (0.04-0.35); Eosinophils % (A) 0 %; HGB 10.2 g/dL (12.0-15.0); Immature Grans, Automated 0.8 %; Lymphocytes # (A) 0.68 X 10*3/uL (0.90-5.00); Lymphocytes % (A) 4.7 %; MCH 26.9 pg (27.0-32.0); MCHC 30.9 g/dL (32.0-37.0); MCV 87.1 fL (80.0-97.0); Mean Platelet Volume 10.4 fL (9.5-12.2); Monocytes # (A) 0.35 X 10*3/uL (0.20-1.00); Monocytes % (A) 2.4 %; NRBC Per 100 WBC 0 /100 WBCS (0.0-0.0); Neutrophils % (A) 91.9 %; Platelet Count 325 X 10*3/uL (140-440); RBC 3.79 X 10*6/uL (4.10-5.20); RDW 15.4 % (11.5-14.5); WBC 14.57 X 10*3/uL (4.50-10.00)
[2023-02-13] MEDS: guaiFENesin-DM 100-10MG/5ML 10 ML CUP PO SCH ×3 (11:37→23:52)
--- NOTE | 2023-02-13 19:23 | P.PN ---
Subjective This is a pleasant 52 years old female with past medical history of COPD Presents because of worsening dyspnea , Has been worsening especially over the last 3 days. Patient reports history of upper respiratory tract infection, she states she was taking care of her grandkids and they were sick at least 2 of them. Then she started having some runny nose and gradually was getting worse She stated that she has history of COPD about 5 years ago, she quit smoking prior to that. 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 Currently patient lying in bed feels no energy and weak with no appendectomy diets and she has not eaten well over the last few days. She denies chest pain but she feels some heaviness. She is making some green phlegm which started today. No abdominal pain vomiting or diarrhea. No urinary complaints. No active disease next weakness or numbness. Comment smoking, no alcohol or illicit drugs. Patient hemodynamically stable, blood pressure 95/70. She is saturating 95% on 2 L oxygen via nasal cannula. Patient is afebrile currently but had a fever of 104.1 on admission On admission she has mild leukocytosis of 13.4 hemoglobin 11.2. Rest of CBC is unremarkable. INR 0.9. Sodium 131. Rest of BMP and liver enzymes were unremarkable. Plasma lactic acid is low. Viruses of undetected including influenza, RSV and zuniga virus Group A strep PCR is negative. EKG showing sinus tachycardia around 125. No significant ST-T changes. Chest x-ray: Normal parenchyma suggesting multifocal bronchopneumonia in emergency room patient was started on ceftriaxone and Solu-Medrol and then continued on Augmentin. 02/13/2023 patient started showing some improvement however she still short of breath, stent in bed most of the time, she still feels malaise, she still been bothered by COUGH and request for cough syrup which is admitted Oxygen saturation is acceptable on 2 L Sputum cultures pending Patient still have leukocytosis of about 14,000 but she is on steroids Hemoglobin 11.2 and repeat 110.2 Objective - Vital Signs Vital signs: Vital Signs Temp 98.1 F 02/13/23 08:00 Pulse 99 02/13/23 08:42 Resp 19 02/13/23 08:00 BP 118/75 02/13/23 08:00 Pulse Ox 97 02/13/23 08:00 FiO2 Intake & Output 04/14/23 04/15/23 04/15/23 18:59 06:59 18:59 Other: Voiding Method Toilet # Voids 1 2 - Exam GENERAL: The patient is alert and oriented x3, not in any acute distress. Well developed, well nourished. HEENT: Pupils are round and equally reacting to light. EOMI. No scleral icterus. No conjunctival pallor. Normocephalic, atraumatic. No pharyngeal erythema. No thyromegaly. CARDIOVASCULAR: S1 and S2 present. No murmurs, rubs, or gallops. -PULMONARY: Chest is clear to auscultation, expiratory no wheezing with harsh breath sounds ABDOMEN: Soft, nontender, nondistended, normoactive bowel sounds. No palpable organomegaly. MUSCULOSKELETAL: No joint swelling or deformity. EXTREMITIES: No cyanosis, clubbing, or pedal edema. NEUROLOGICAL: Gross neurological examination did not reveal any focal deficits. SKIN: No rashes. no petechiae. - Labs CBC & Chem 7: 02/13/23 05:58 02/13/23 05:58 Labs: Abnormal Lab Results - Last 24 Hours (Table) 02/12/23 02/13/23 02/13/23 Range/Units 15:13 05:58 05:58 WBC 14.57 H (4.50-10.00) X 10*3/uL RBC 3.79 L (4.10-5.20) X 10*6/uL Hgb 10.2 L (12.0-15.0) g/dL Hct 33.0 L (37.2-46.3) % MCH 26.9 L (27.0-32.0) pg MCHC 30.9 L (32.0-37.0) g/dL RDW 15.4 H (11.5-14.5) % Immature Gran # 0.11 H (0.00-0.04) X 10*3/uL Neutrophils # 13.40 H (1.80-7.70) X 10*3/uL Lymphocytes # 0.68 L (0.90-5.00) X 10*3/uL Eosinophils # 0 L (0.04-0.35) X 10*3/uL Anion Gap 9.60 L (10.00-18.00) mmol/L Creatinine 0.5 L (0.6-1.5) mg/dL BUN/Creatinine Ratio 26.20 H (12.00-20.00) Ratio Glucose 123 H (70-110) mg/dL Procalcitonin 0.47 H (0.02-0.09) ng/mL Microbiology - Last 24 Hours (Table) 02/12/23 01:23 Blood Culture - Preliminary Blood No Growth after 24 hours 02/12/23 20:19 Sputum Culture - Preliminary Sputum 02/11/23 18:45 Blood Culture - Preliminary Blood No Growth after 24 hours 02/11/23 18:30 Blood Culture - Preliminary Blood No Growth after 24 hours Assessment and Plan Assessment: Acute community acquired bronchopneumonia , More on the left side Acute COPD exacerbation Mild sepsis secondary to above Plan: Continue with antibiotic ceftriaxone and Zithromax Continue with gentle hydration Continue with IV Solu-Medrol Continue with bronchodilator send sputum culture, discussed with stafft Pulmonary team consul Labs and medication were reviewed.. Continue same treatment. Continue with symptomatic treatment. Resume home medication. Monitor labs and vitals. DVT and GI prophylaxis. Further recommendations as per clinical course of the patient DVT prophylaxis: Subcutaneous heparin GI Prophylaxis: Pepcid PT/OT: Pending Prognosis is guarded
[2023-02-13] MEDS: MONTELUKAST 10 MG TAB PO SCH (21:28)
[2023-02-13] MEDS: FAMOTIDINE 20 MG TAB PO SCH (21:28)
[2023-02-13] MEDS: ACETAMINOPHEN TAB 325 MG TAB PO PRN (21:49)
[2023-02-14] MEDS: guaiFENesin-DM 100-10MG/5ML 10 ML CUP PO SCH ×3 (06:10→17:37)
[2023-02-14] MEDS: methylPREDNISolone SOD SUCCI 125 MG/2 ML VIAL IV SCH ×3 (06:10→17:37)
--- NOTE | 2023-02-14 08:19 | P.PN ---
Subjective Progress Note Date: 02/14/23 Principal diagnosis: Shortness of breath. 52-year-old patient with a previous history of tobacco use for about 30 years. The patient does have a history of COPD, and was inpatient here August 2022, at which time she saw my partner, and our nurse practitioner. The patient comes back into the hospital, complaining of shortness of breath, fever. His prior to admission. She was seen in the emergency room, and admitted to the hospital for a COPD exacerbation. She denies smoking although the ER tyra states that she does continue to smoke. She apparently smoked on and off for 30+ years. She does use oxygen at home. She states she has no family doctor. She does have a nebulizer machine at home, albuterol, and Symbicort. Currently, she is on 2 L of oxygen, and getting saline at 20 mL an hour. She seen in ER room 17. White count 13.4, hemoglobin 11.2, hematocrit 33.1, and platelet count 247,000. Sodium 131, potassium 4.4, chlorides 99, CO2 24, BUN 9, creatinine 0.55. Testing for influenza A, influenza B, respiratory syncytial virus, coronavirus, and group A strep, all negative. Chest x-ray shows some patchy by lateral infiltrates. Some of which may be acute and some of which may be more chronic in nature. The patient is seen today for 02/13/2023 in follow-up on the regular medical floor. She is currently sitting up in bed. Awake and alert in no acute distress. Breathing a bit easier today compared to yesterday. Not quite back to her baseline. Still with a loose nonproductive cough. Some chest tightness and wheezing. Maintaining O2 saturations in the 90s on 2 L/m per nasal cannula. Normal saline 20 mg per hour. Blood cultures reveal no growth to date. Sputum culture pending. Pro-calcitonin 0.47. She remains on ceftriaxone and azit hromycin. Continue on DuoNeb inhalations, Pulmicort and Perforomist inhalations, IV Solu-Medrol. She states she did quit smoking several years ago. She used to vape for her anxiety but states that did not help and she has not been vaping lately either. Progress note dated 02/14/2023. The patient is seen today in room 517. This is a 52-year-old female admitted with a COPD exacerbation. The patient is doing better. Currently, she is on 2 L of oxygen. She is getting saline at 20 mL an hour. A repeat chest x-ray will be done today. The patient still complains of shortness of breath, chest tightness, wheezing, and cough. No new labs today. Labs from yesterday have been reviewed. Sputum sampling, and blood cultures have all been negative. Objective - Vital Signs Vital signs: Vital Signs Temp 97.8 F 02/14/23 02:44 Pulse 84 02/14/23 02:44 Resp 16 02/14/23 02:44 BP 126/73 02/14/23 02:44 Pulse Ox 99 02/14/23 02:44 FiO2 Intake & Output 02/13/23 02/14/23 02/14/23 18:59 06:59 18:59 Intake Total 240 Balance 240 Intake: IV 240 ns@20 240 Other: Voiding Method Toilet # Voids 3 - Exam No acute distress, oriented 3. Currently on 2 L. No conversational dyspnea or use of accessory muscles. No audible wheezing. HEENT examination is grossly unremarkable. Neck supple. Full range of motion. No adenopathy thyromegaly or neck vein distention. Cardiovascular examination reveals regular rhythm rate. S1-S2 normal. No S3 or S4. No discernible murmur noted. Heart rate 84 bpm. Heart sounds are distant. Lungs reveal severely diminished breath sounds throughout. Scattered rhonchi are noted. Mild expiratory wheezes. No crackles. Breath sounds equal. Abdomen soft bowel sounds are heard. No masses or tenderness. Extremities are intact. No cyanosis clubbing or edema. Skin is without rash or lesion. Neurologic examination is brief but nonfocal. - Labs CBC & Chem 7: 02/13/23 05:58 02/13/23 05:58 Labs: Abnormal Lab Results - Last 24 Hours (Table) 02/13/23 02/13/23 Range/Units 05:58 05:58 WBC 14.57 H (4.50-10.00) X 10*3/uL RBC 3.79 L (4.10-5.20) X 10*6/uL Hgb 10.2 L (12.0-15.0) g/dL Hct 33.0 L (37.2-46.3) % MCH 26.9 L (27.0-32.0) pg MCHC 30.9 L (32.0-37.0) g/dL RDW 15.4 H (11.5-14.5) % Immature Gran # 0.11 H (0.00-0.04) X 10*3/uL Neutrophils # 13.40 H (1.80-7.70) X 10*3/uL Lymphocytes # 0.68 L (0.90-5.00) X 10*3/uL Eosinophils # 0 L (0.04-0.35) X 10*3/uL Anion Gap 9.60 L (10.00-18.00) mmol/L Creatinine 0.5 L (0.6-1.5) mg/dL BUN/Creatinine Ratio 26.20 H (12.00-20.00) Ratio Glucose 123 H (70-110) mg/dL Microbiology - Last 24 Hours (Table) 02/12/23 20:19 Gram Stain - Preliminary Sputum Sputum Culture - Preliminary 02/12/23 01:23 Blood Culture - Preliminary Blood No Growth after 48 hours 02/11/23 18:30 Blood Culture - Preliminary Blood No Growth after 48 hours 02/11/23 18:45 Blood Culture - Preliminary Blood No Growth after 48 hours Assessment and Plan Assessment: Acute hypoxemic respiratory failure secondary to an acute exacerbation of chronic obstructive pulmonary disease. Prior history of heavy tobacco use, for many years. Chronic changes on chest x-ray/computed tomography scan. History of anxiety. Chronic hypoxemic respiratory failure. Plan: Plan dated 02/12/2023. The patient is seen and examined, down in the emergency room, labs, x-rays, and medications all reviewed. The patient was given Rocephin and azithromycin. The patient was also given Symbicort 160/4.5, 2 puffs twice a day. We'll check a pro-calcitonin level. The patient is getting updrafts with albuterol sulfate and ipratropium bromide. This should be 4 times a day and when necessary. The patient's also getting Solu-Medrol 60 mg every 6 hours. We will continue to follow make recommendations were appropriate. The pro-calcitonin level is low, antibiotics can be de-escalated. Some the changes seen on the chest x-ray may be more chronic given the CAT scan report from last fall. Plan dated 02/14/2023. The patient remains on good medications including formoterol, budesonide, albuterol, ipratropium bromide, and Solu-Medrol. In addition, the patient remains on antibiotics. We will continue to follow the patient and make recommendations along the way. Prognosis is guarded. Antibiotics can be de- escalated. Labs, x-rays, and medications are all reviewed. Time with Patient: Less than 30
[2023-02-14] MEDS: FORMOTEROL FUMARATE 20 MCG/2 ML NEBU INHALATION SCH ×2 (08:29→19:57)
[2023-02-14] MEDS: IPRATROPIUM-ALBUTEROL 3 ML NEB INHALATION SCH ×4 (08:29→19:57)
[2023-02-14] MEDS: BUDESONIDE 1 MG/2 ML NEBU INHALATION SCH ×2 (08:29→19:57)
--- NOTE | 2023-02-14 08:38 | XR ---
EXAMINATION TYPE: XR chest 1V portable DATE OF EXAM: 02/14/2023 CLINICAL HISTORY: Difficulty breathing progress study. History of COPD. TECHNIQUE: Single AP portable upright view of the chest is obtained. COMPARISON: Chest x-ray from 3 days earlier FINDINGS: There is chronic emphysematous and increased interstitial markings redemonstrated without suspicious new focal airspace opacity, pleural effusion, or pneumothorax seen. Cardiac silhouette siz e stable and within normal limits. Osseous structures are intact. IMPRESSION: Chronic emphysematous change with bilateral interstitial edema and/or fibrosis redemonstr ated. No new focal infiltrate. No significant change from most recent x-ray.
[2023-02-14 08:51] LABS: Basophils % (A) 0 %; Eosinophils % (A) 0 %; HCT 33.3 % (34.0-46.0); HGB 10.5 gm/dL (11.4-16.0); Hypochromasia Slight; Lymphocytes # (A) 0.6 k/uL (1.0-4.8); Lymphocytes % (A) 7 %; MCH 27.7 pg (25.0-35.0); MCHC 31.4 g/dL (31.0-37.0); MCV 88.5 fL (80.0-100.0); Mean Platelet Volume 9.1; Monocytes # (A) 0.2 k/uL (0-1.0); Monocytes % (A) 2 %; Neutrophils # (A) 8.4 k/uL (1.3-7.7); Neutrophils % (A) 90 %; Platelet Count 336 k/uL (150-450); RBC 3.77 m/uL (3.80-5.40); WBC 9.3 k/uL (3.8-10.6)
[2023-02-14] MEDS: FAMOTIDINE 20 MG TAB PO SCH ×2 (09:59→21:15)
[2023-02-14] MEDS: HEPARIN SODIUM,PORCINE/PF 5,000 UNIT/0.5 ML SYRINGE SQ SCH ×2 (09:59→21:15)
[2023-02-14] MEDS: AZITHROMYCIN 500 MG TAB PO SCH (09:59)
--- NOTE | 2023-02-14 14:24 | P.PN ---
Subjective Progress Note Date: 02/14/23 This is a pleasant 52 years old female with past medical history of COPD Presents because of worsening dyspnea , Has been worsening especially over the last 3 days. Patient reports history of upper respiratory tract infection, she states she was taking care of her grandkids and they were sick at least 2 of them. Then she started having some runny nose and gradually was getting worse She stated that she has history of COPD about 5 years ago, she quit smoking prior to that. 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 Currently patient lying in bed feels no energy and weak with no appendectomy diets and she has not eaten well over the last few days. She denies chest pain but she feels some heaviness. She is making some green phlegm which started today. No abdominal pain vomiting or diarrhea. No urinary complaints. No active disease next weakness or numbness. Comment smoking, no alcohol or illicit drugs. Patient hemodynamically stable, blood pressure 95/70. She is saturating 95% on 2 L oxygen via nasal cannula. Patient is afebrile currently but had a fever of 104.1 on admission On admission she has mild leukocytosis of 13.4 hemoglobin 11.2. Rest of CBC is unremarkable. INR 0.9. Sodium 131. Rest of BMP and liver enzymes were unremarkable. Plasma lactic acid is low. Viruses of undetected including influenza, RSV and zuniga virus Group A strep PCR is negative. EKG showing sinus tachycardia around 125. No significant ST-T changes. Chest x-ray: Normal parenchyma suggesting multifocal bronchopneumonia in emergency room patient was started on ceftriaxone and Solu-Medrol and then continued on Augmentin. 02/13/2023 patient started showing some improvement however she still short of breath, stent in bed most of the time, she still feels malaise, she still been bothered by COUGH and request for cough syrup which is admitted Oxygen saturation is acceptable on 2 L Sputum cultures pending Patient still have leukocytosis of about 14,000 but she is on steroids Hemoglobin 11.2 and repeat 110.2 . Patient seen and examined. Repeat chest x-ray done this morning showed chronic emphysematous changes with bilateral interstitial edema or fibrosis redemonstrated. No new focal infiltrates. Currently on 2 L of oxygen, complaining of shortness of breath on exertion REVIEW OF SYSTEMS: CONSTITUTIONAL: No fever, no malaise,. CARDIOVASCULAR: No chest pain, no palpitations, no syncope. PULMONARY: As mentioned in HPI GASTROINTESTINAL: No diarrhea, no nausea, no vomiting, no abdominal pain. NEUROLOGICAL: No headaches, no weakness, PHYSICAL EXAMINATION: GENERAL: The patient is alert and oriented x3, not in any acute distress. Well developed, well nourished. HEENT: Pupils are round and equally reacting to light. EOMI. No scleral icterus. No conjunctival pallor. Normocephalic, atraumatic. No pharyngeal erythema. No thyromegaly. CARDIOVASCULAR: S1 and S2 present. No murmurs, rubs, or gallops. PULMONARY: Coarse breath some bilaterally, no wheezes ABDOMEN: Soft, nontender, nondistended, normoactive bowel sounds. No palpable organomegaly. MUSCULOSKELETAL: No joint swelling or deformity. EXTREMITIES: No cyanosis, clubbing, or pedal edema. NEUROLOGICAL: Gross neurological examination did not reveal any focal deficits. SKIN: No rashes. Assessment and plan Bacterial pneumonia Acute COPD exacerbation Mild sepsis secondary to above Plan: Monitor vital signs Monitor CBC Continue oxygen supplementation Continue Zithromax Continue with IV Solu-Medrol Continue with bronchodilator Labs and medication were reviewed.. Continue same treatment. Further recommendations as per clinical course of the patient Pulmonology following Objective - Vital Signs Vital signs: Vital Signs Temp 98.7 F 02/14/23 07:40 Pulse 108 H 02/14/23 08:48 Resp 17 02/14/23 07:40 BP 148/81 02/14/23 07:40 Pulse Ox 96 02/14/23 07:40 FiO2 Intake & Output 02/13/23 02/14/23 02/14/23 18:59 06:59 18:59 Intake Total 240 Balance 240 Intake: IV 240 ns@20 240 Other: Voiding Method Toilet # Voids 3 - Labs CBC & Chem 7: 02/14/23 06:54 02/13/23 05:58 Labs: Abnormal Lab Results - Last 24 Hours (Table) 02/14/23 Range/Units 06:54 RBC 3.77 L (3.80-5.40) m/uL Hgb 10.5 L (11.4-16.0) gm/dL Hct 33.3 L (34.0-46.0) % Neutrophils # 8.4 H (1.3-7.7) k/uL Lymphocytes # 0.6 L (1.0-4.8) k/uL Microbiology - Last 24 Hours (Table) 02/12/23 20:19 Gram Stain - Preliminary Sputum Sputum Culture - Preliminary 02/12/23 01:23 Blood Culture - Preliminary Blood No Growth after 48 hours 02/11/23 18:30 Blood Culture - Preliminary Blood No Growth after 48 hours 02/11/23 18:45 Blood Culture - Preliminary Blood No Growth after 48 hours
[2023-02-14] MEDS: ACETAMINOPHEN TAB 325 MG TAB PO PRN (19:20)
[2023-02-14] MEDS: MONTELUKAST 10 MG TAB PO SCH (21:14)
[2023-02-15] MEDS: guaiFENesin-DM 100-10MG/5ML 10 ML CUP PO SCH ×4 (00:37→17:36)
[2023-02-15] MEDS: methylPREDNISolone SOD SUCCI 125 MG/2 ML VIAL IV SCH (00:37)
[2023-02-15 03:04] VITALS: RESP 16
--- NOTE | 2023-02-15 06:11 | P.PN ---
Subjective Progress Note Date: 02/15/23 Principal diagnosis: COPD exacerbation 52-year-old patient with a previous history of tobacco use for about 30 years. The patient does have a history of COPD, and was inpatient here August 2022, at which time she saw my partner, and our nurse practitioner. The patient comes b ack into the hospital, complaining of shortness of breath, fever. His prior to admission. She was seen in the emergency room, and admitted to the hospital for a COPD exacerbation. She denies smoking although the ER tyra states that she does continue to smoke. She apparently smoked on and off for 30+ years. She does use oxygen at home. She states she has no family doctor. She does have a nebulizer machine at home, albuterol, and Symbicort. Currently, she is on 2 L of oxygen, and getting saline at 20 mL an hour. She seen in ER room 17. White count 13.4, hemoglobin 11.2, hematocrit 33.1, and platelet count 247,000. Sodium 131, potassium 4.4, chlorides 99, CO2 24, BUN 9, creatinine 0.55. Testing for influenza A, influenza B, respiratory syncytial virus, coronavirus, and group A strep, all negative. Chest x-ray shows some patchy by lateral infiltrates. Some of which may be acute and some of which may be more chronic in nature. The patient is seen today for 02/13/2023 in follow-up on the regular medical floor. She is currently sitting up in bed. Awake and alert in no acute distress. Breathing a bit easier today compared to yesterday. Not quite back to her baseline. Still with a loose nonproductive cough. Some chest tightness and wheezing. Maintaining O2 saturations in the 90s on 2 L/m per nasal cannula. Normal saline 20 mg per hour. Blood cultures reveal no growth to date. Sputum culture pending. Pro-calcitonin 0.47. She remains on ceftriaxone and azithro mycin. Continue on DuoNeb inhalations, Pulmicort and Perforomist inhalations, IV Solu-Medrol. She states she did quit smoking several years ago. She used to vape for her anxiety but states that did not help and she has not been vaping lately either. Progress note dated 02/14/2023. The patient is seen today in room 517. This is a 52-year-old female admitted with a COPD exacerbation. The patient is doing better. Currently, she is on 2 L of oxygen. She is getting saline at 20 mL an hour. A repeat chest x-ray will be done today. The patient still complains of shortness of breath, chest tightness, wheezing, and cough. No new labs today. Labs from yesterday have been reviewed. Sputum sampling, and blood cultures have all been negative. I'm evaluating this patient today 02/15/2023 in follow-up on the general medical floor. Patient is currently resting comfortably, on 2 L nasal cannula, in no acute distress. Chest x-ray was repeated yesterday which showed chronic emphysematous changes with bilateral interstitial edema or and/or fibrosis redemonstrated. No new focal infiltrates. No significant change from recent x- ray. Patient's CBC from yesterday shows an improved WBC count down to 9.3, hemoglobin 10.5, hematocrit 33.3, platelets 336,000. Patient's initial procalcitonin level was elevated at 0.47. She is afebrile. Continues to receive Zithromax. Also receiving bronchodilators, budesonide and formoterol inhalations, and prednisone taper. Vital signs are stable. Objective - Vital Signs Vital signs: Vital Signs Temp 97.7 F 02/15/23 03:03 Pulse 77 02/15/23 03:03 Resp 16 02/15/23 03:03 BP 131/78 02/15/23 03:03 Pulse Ox 98 02/15/23 03:03 FiO2 Intake & Output 02/14/23 02/14/23 02/15/23 06:59 18:59 06:59 Intake Total 240 360 Balance 240 360 Intake: IV 240 ns@20 240 Oral 360 Other: Voiding Method Toilet Toilet Toilet # Voids 4 2 # Bowel Movements 1 - Exam GENERAL EXAM: Alert, 52-year-old white female , comfortable in no apparent distress. HEAD: Normocephalic and atraumatic EYES: Normal reaction of pupils, equal size. NOSE: Clear with pink turbinates. THROAT: No erythema or exudates. NECK: No masses, no JVD. CHEST: No chest wall deformity. LUNGS: Equal air entry with scattered rhonchi. no crackles, wheeze, or dullness. On 2 L nasal cannula. No conversational dyspnea or accessory muscle use.. CVS: S1 and S2 normal with no audible murmur, regular rhythm. No extra heart sounds ABDOMEN: No hepatosplenomegaly, active bowel sounds, no guarding or rigidity. SPINE: No scoliosis or deformity SKIN: No rashes CENTRAL NERVOUS SYSTEM: No focal deficits, tone is normal in all 4 extremities. EXTREMITIES: There is no peripheral edema, clubbing, or cyanosis. Peripheral pulses are intact. - Labs CBC & Chem 7: 02/14/23 06:54 02/13/23 05:58 Labs: Abnormal Lab Results - Last 24 Hours (Table) 02/14/23 Range/Units 06:54 RBC 3.77 L (3.80-5.40) m/uL Hgb 10.5 L (11.4-16.0) gm/dL Hct 33.3 L (34.0-46.0) % Neutrophils # 8.4 H (1.3-7.7) k/uL Lymphocytes # 0.6 L (1.0-4.8) k/uL Microbiology - Last 24 Hours (Table) 02/12/23 01:23 Blood Culture - Preliminary Blood No Growth after 72 hours 02/11/23 18:45 Blood Culture - Preliminary Blood No Growth after 72 hours 02/11/23 18:30 Blood Culture - Preliminary Blood No Growth after 72 hours 02/12/23 20:19 Gram Stain - Preliminary Sputum Sputum Culture - Preliminary Assessment and Plan Assessment: Acute on chronic hypoxemic respiratory failure secondary to an acute exacerbation of chronic obstructive pulmonary disease. Prior history of heavy tobacco use, for many years. Chronic changes on chest x-ray/computed tomography scan. History of anxiety. Plan: Patient's medications, labs, chest x-ray reviewed Patient is demonstrating some improvement Currently on 2 L nasal cannula; she does use home oxygen Continue bronchodilators Switch the patient to Symbicort inhaler Continue prednisone taper Continue empiric azithromycin Recheck procalcitonin level We will continue to follow I have personally seen and examined the patient, performed the documentation and the assessment and plan as written. Number of minutes spent on the visit:10 Time with Patient: Less than 30
[2023-02-15] MEDS: IPRATROPIUM-ALBUTEROL 3 ML NEB INHALATION SCH ×4 (08:22→18:12)
[2023-02-15] MEDS: SYMBICORT 160-4.5 MCG INHALER INHALATION SCH ×2 (08:22→18:13)
[2023-02-15 08:55] LABS: HCT 33.2 % (37.2-46.3); HGB 10.1 g/dL (12.0-15.0); MCH 26.9 pg (27.0-32.0); MCHC 30.4 g/dL (32.0-37.0); MCV 88.3 fL (80.0-97.0); Mean Platelet Volume 10.6 fL (9.5-12.2); NRBC Per 100 WBC 0 /100 WBCS (0.0-0.0); Platelet Count 344 X 10*3/uL (140-440); RBC 3.76 X 10*6/uL (4.10-5.20); RDW 15.5 % (11.5-14.5); WBC 8.33 X 10*3/uL (4.50-10.00)
[2023-02-15] MEDS: FAMOTIDINE 20 MG TAB PO SCH ×2 (09:04→20:16)
[2023-02-15] MEDS: HEPARIN SODIUM,PORCINE/PF 5,000 UNIT/0.5 ML SYRINGE SQ SCH ×2 (09:04→20:15)
[2023-02-15] MEDS: predniSONE 20 MG TAB PO SCH (09:04)
[2023-02-15] MEDS: AZITHROMYCIN 500 MG TAB PO SCH (09:04)
[2023-02-15 09:06] LABS: ALT 37 U/L (8-44); AST 14 U/L (13-35); African American GFR (CKD) 120.6 (60.0-200.0); Albumin 3.1 g/dL (3.8-4.9); Albumin/Globulin Ratio 1.48 (1.60-3.17); Alkaline Phosphatase 83 U/L (41-126); BUN/Creat Ratio 25.33 Ratio (12.00-20.00); Blood Urea Nitrogen 15.2 mg/dL (9.0-27.0); Calcium 8.8 mg/dL (8.7-10.3); Carbon Dioxide 29.1 mmol/L (20.0-27.5); Chloride 105 mmol/L (96-109); Globulin 2.1 g/dL (1.6-3.3); Glucose 129 mg/dL (70-110); Non-African American GFR(CKD) 104.1 (60.0-200.0); Potassium 4.4 mmol/L (3.5-5.5); Sodium 141 mmol/L (135-145); Total Bilirubin <0.15 mg/dL (0.30-1.20); Total Protein 5.2 g/dL (6.2-8.2)
[2023-02-15] MEDS: ALPRAZolam 0.25 MG TAB PO PRN ×2 (12:45→20:16)
--- NOTE | 2023-02-15 15:37 | P.PN ---
Subjective Progress Note Date: 02/15/23 This is a pleasant 52 years old female with past medical history of COPD Presents because of worsening dyspnea , Has been worsening especially over the last 3 days. Patient reports history of upper respiratory tract infection, she states she was taking care of her grandkids and they were sick at least 2 of them. Then she started having some runny nose and gradually was getting worse She stated that she has history of COPD about 5 years ago, she quit smoking prior to that. 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 Currently patient lying in bed feels no energy and weak with no appendectomy diets and she has not eaten well over the last few days. She denies chest pain but she feels some heaviness. She is making some green phlegm which started today. No abdominal pain vomiting or diarrhea. No urinary complaints. No active disease next weakness or numbness. Comment smoking, no alcohol or illicit drugs. Patient hemodynamically stable, blood pressure 95/70. She is saturating 95% on 2 L oxygen via nasal cannula. Patient is afebrile currently but had a fever of 104.1 on admission On admission she has mild leukocytosis of 13.4 hemoglobin 11.2. Rest of CBC is unremarkable. INR 0.9. Sodium 131. Rest of BMP and liver enzymes were unremarkable. Plasma lactic acid is low. Viruses of undetected including influenza, RSV and zuniga virus Group A strep PCR is negative. EKG showing sinus tachycardia around 125. No significant ST-T changes. Chest x-ray: Normal parenchyma suggesting multifocal bronchopneumonia in emergency room patient was started on ceftriaxone and Solu-Medrol and then continued on Augmentin. 02/13/2023 patient started showing some improvement however she still short of breath, stent in bed most of the time, she still feels malaise, she still been bothered by COUGH and request for cough syrup which is admitted Oxygen saturation is acceptable on 2 L Sputum cultures pending Patient still have leukocytosis of about 14,000 but she is on steroids Hemoglobin 11.2 and repeat 110.2 . Patient seen and examined. Repeat chest x-ray done this morning showed chronic emphysematous changes with bilateral interstitial edema or fibrosis redemonstrated. No new focal infiltrates. Currently on 2 L of oxygen, complaining of shortness of breath on exertion 02/15. Patient seen and examined. States breathing is improving but still not back to baseline. REVIEW OF SYSTEMS: CONSTITUTIONAL: No fever, no malaise,. CARDIOVASCULAR: No chest pain, no palpitations, no syncope. PULMONARY: As mentioned in HPI GASTROINTESTINAL: No diarrhea, no nausea, no vomiting, no abdominal pain. NEUROLOGICAL: No headaches, no weakness, PHYSICAL EXAMINATION: GENERAL: The patient is alert and oriented x3, not in any acute distress. Well developed, well nourished. HEENT: Pupils are round and equally reacting to light. EOMI. No scleral icterus. No conjunctival pallor. Normocephalic, atraumatic. No pharyngeal erythema. No thyromegaly. CARDIOVASCULAR: S1 and S2 present. No murmurs, rubs, or gallops. PULMONARY: Coarse breath some bilaterally, no wheezes ABDOMEN: Soft, nontender, nondistended, normoactive bowel sounds. No palpable organomegaly. MUSCULOSKELETAL: No joint swelling or deformity. EXTREMITIES: No cyanosis, clubbing, or pedal edema. NEUROLOGICAL: Gross neurological examination did not reveal any focal deficits. SKIN: No rashes. Assessment and plan Bacterial pneumonia Acute COPD exacerbation Mild sepsis secondary to above Plan: Monitor vital signs Monitor CBC Continue oxygen supplementation Continue Zithromax Continue with IV Solu-Medrol Continue with bronchodilator Labs and medication were reviewed.. Continue same treatment. Further recommendations as per clinical course of the patient Pulmonology following Possible discharge in next 24 hours Objective - Vital Signs Vital signs: Vital Signs Temp 98.1 F 02/15/23 11:21 Pulse 74 02/15/23 12:01 Resp 16 02/15/23 11:21 BP 136/77 02/15/23 11:21 Pulse Ox 97 02/15/23 11:21 FiO2 Intake & Output 02/14/23 02/15/23 02/15/23 18:59 06:59 18:59 Intake Total 360 Balance 360 Intake: Oral 360 Other: Voiding Method Toilet Toilet # Voids 4 2 # Bowel Movements 1 - Labs CBC & Chem 7: 02/15/23 03:20 02/15/23 03:20 Labs: Abnormal Lab Results - Last 24 Hours (Table) 02/15/23 02/15/23 02/15/23 Range/Units 03:20 03:20 03:20 RBC 3.76 L (4.10-5.20) X 10*6/uL Hgb 10.1 L (12.0-15.0) g/dL Hct 33.2 L (37.2-46.3) % MCH 26.9 L (27.0-32.0) pg MCHC 30.4 L (32.0-37.0) g/dL RDW 15.5 H (11.5-14.5) % Carbon Dioxide 29.1 H (20.0-27.5) mmol/L Anion Gap 6.90 L (10.00-18.00) mmol/L BUN/Creatinine Ratio 25.33 H (12.00-20.00) Ratio Glucose 129 H (70-110) mg/dL Total Bilirubin <0.15 L (0.30-1.20) mg/dL Total Protein 5.2 L (6.2-8.2) g/dL Albumin 3.1 L (3.8-4.9) g/dL Albumin/Globulin Ratio 1.48 L (1.60-3.17) g/dL Procalcitonin 0.13 H (0.02-0.09) ng/mL Microbiology - Last 24 Hours (Table) 02/12/23 20:19 Gram Stain - Final Sputum Sputum Culture - Final 02/12/23 01:23 Blood Culture - Preliminary Blood No Growth after 72 hours 02/11/23 18:45 Blood Culture - Preliminary Blood No Growth after 72 hours 02/11/23 18:30 Blood Culture - Preliminary Blood No Growth after 72 hours
[2023-02-15] MEDS: MONTELUKAST 10 MG TAB PO SCH (20:16)
[2023-02-15] MEDS: ACETAMINOPHEN TAB 325 MG TAB PO PRN (20:21)
[2023-02-16] MEDS: guaiFENesin-DM 100-10MG/5ML 10 ML CUP PO SCH ×3 (00:01→13:25)
[2023-02-16 07:27] LABS: Glucose,Whole Blood 77 mg/dL (70-110)
[2023-02-16] MEDS: predniSONE 20 MG TAB PO SCH (08:32)
[2023-02-16] MEDS: AZITHROMYCIN 500 MG TAB PO SCH (08:33)
[2023-02-16] MEDS: FAMOTIDINE 20 MG TAB PO SCH (08:33)
[2023-02-16] MEDS: HEPARIN SODIUM,PORCINE/PF 5,000 UNIT/0.5 ML SYRINGE SQ SCH (08:33)
[2023-02-16] MEDS: SYMBICORT 160-4.5 MCG INHALER INHALATION SCH (08:34)
[2023-02-16] MEDS: IPRATROPIUM-ALBUTEROL 3 ML NEB INHALATION SCH ×3 (08:34→15:19)
--- NOTE | 2023-02-16 13:19 | P.DS ---
Providers Date of admission: 02/11/23 20:33 Expected date of discharge: 02/16/23 Attending physician: Irving Power Consults: 02/12/23 10:24 Consult Physician Urgent Consulting Provider: Choco Fallon Consult Reason/Comments: bronchopneuomnia Do you want consulting provider notified?: Yes Primary care physician: Stated None Hospital Course: Discharge diagnoses; Bacterial pneumonia Acute COPD exacerbation Mild sepsis secondary to above Hospital course; This is a pleasant 52 years old female with past medical history of COPD Presents because of worsening dyspnea , Has been worsening especially over the last 3 days. Patient reports history of upper respiratory tract infection, she states she was taking care of her grandkids and they were sick at least 2 of them. Then she started having some runny nose and gradually was getting worse She stated that she has history of COPD about 5 years ago, she quit smoking prior to that. 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 Currently patient lying in bed feels no energy and weak with no appendectomy diets and she has not eaten well over the last few days. She denies chest pain but she feels some heaviness. She is making some green phlegm which started today. No abdominal pain vomiting or diarrhea. No urinary complaints. No active disease next weakness or numbness. Comment smoking, no alcohol or illicit drugs. Patient hemodynamically stable, blood pressure 95/70. She is saturating 95% on 2 L oxygen via nasal cannula. Patient is afebrile currently but had a fever of 104.1 on admission On admission she has mild leukocytosis of 13.4 hemoglobin 11.2. Rest of CBC is unremarkable. INR 0.9. Sodium 131. Rest of BMP and liver enzymes were unremarkable. Plasma lactic acid is low. Viruses of undetected including influenza, RSV and zuniga virus Group A strep PCR is negative. EKG showing sinus tachycardia around 125. No significant ST-T changes. Chest x-ray: Normal parenchyma suggesting multifocal bronchopneumonia in emergency room patient was started on ceftriaxone and Solu-Medrol and then continued on Augmentin. 02/13/2023 patient started showing some improvement however she still short of breath, stent in bed most of the time, she still feels malaise, she still been bothered by COUGH and request for cough syrup which is admitted Oxygen saturation is acceptable on 2 L Sputum cultures pending Patient still have leukocytosis of about 14,000 but she is on steroids Hemoglobin 11.2 and repeat 110.2 . Patient seen and examined. Repeat chest x-ray done this morning showed chronic emphysematous changes with bilateral interstitial edema or fibrosis redemonstrated. No new focal infiltrates. Currently on 2 L of oxygen, complaining of shortness of breath on exertion 02/15. Patient seen and examined. States breathing is improving but still not back to baseline. 02/16. Patient seen and examined. Currently feeling much better, states he is back to baseline. Being discharged on tapering dose of prednisone with outpatient follow-up with pulmonology PHYSICAL EXAMINATION: GENERAL: The patient is alert and oriented x3, not in any acute distress. Well developed, well nourished. HEENT: Pupils are round and equally reacting to light. EOMI. No scleral icterus. No conjunctival pallor. Normocephalic, atraumatic. No pharyngeal erythema. No thyromegaly. CARDIOVASCULAR: S1 and S2 present. No murmurs, rubs, or gallops. PULMONARY: Chest is clear to auscultation, no wheezing or crackles. ABDOMEN: Soft, nontender, nondistended, normoactive bowel sounds. No palpable organomegaly. MUSCULOSKELETAL: No joint swelling or deformity. EXTREMITIES: No cyanosis, clubbing, or pedal edema. NEUROLOGICAL: Gross neurological examination did not reveal any focal deficits. SKIN: No rashes. Patient Condition at Discharge: Stable Plan - Discharge Summary Discharge Rx Participant: No New Discharge Prescriptions: New predniSONE 10 mg PO DAILY #20 tab Continue Ipratropium-Albuterol Nebulize [Duoneb 0.5 mg-3 mg/3 ml Soln] 3 ml INHALATION RT-QID PRN PRN Reason: Shortness Of Breath Multivit-Min/FA/Lycopen/Lutein [Centrum Silver Tablet] 1 tab PO DAILY Montelukast [Singulair] 10 mg PO HS Albuterol Inhaler [Ventolin Hfa Inhaler] 2 puff INHALATION RT-Q4H PRN PRN Reason: Shortness Of Breath Cyanocobalamin (Vitamin B-12) [Vitamin B-12] 1,000 mcg PO DAILY Budesonide-Formot 160-4.5 Mcg [Symbicort 160-4.5 Mcg Inhaler] 1 puff INHALATION RT-BID Discharge Medication List Albuterol Inhaler [Ventolin Hfa Inhaler] 2 puff INHALATION RT-Q4H PRN 08/17/22 [History] Ipratropium-Albuterol Nebulize [Duoneb 0.5 mg-3 mg/3 ml Soln] 3 ml INHALATION RT-QID PRN 08/17/22 [History] Montelukast [Singulair] 10 mg PO HS 08/17/22 [History] Budesonide-Formot 160-4.5 Mcg [Symbicort 160-4.5 Mcg Inhaler] 1 puff INHALATION RT-BID 02/11/23 [History] Cyanocobalamin (Vitamin B-12) [Vitamin B-12] 1,000 mcg PO DAILY 02/11/23 [History] Multivit-Min/FA/Lycopen/Lutein [Centrum Silver Tablet] 1 tab PO DAILY 02/11/23 [History] predniSONE 10 mg PO DAILY #20 tab 02/16/23 [Rx] Follow up Appointment(s)/Referral(s): None,Stated [Primary Care Provider] - 1-2 days Elen Byrne MD [STAFF PHYSICIAN] - 1 Week Discharge Disposition: HOME SELF-CARE
[2023-02-16] MEDS: ALPRAZolam 0.25 MG TAB PO PRN (13:28)
--- NOTE | 2023-02-16 14:13 | P.PN ---
Subjective Progress Note Date: 02/16/23 52-year-old patient with a previous history of tobacco use for about 30 years. The patient does have a history of COPD, and was inpatient here August 2022, at which time she saw my partner, and our nurse practitioner. The patient comes back into the hospital, complaining of shortness of breath, fever. His prior to admission. She was seen in the emergency room, and admitted to the hospital for a COPD exacerbation. She denies smoking although the ER tyra states that she does continue to smoke. She apparently smoked on and off for 30+ years. She does use oxygen at home. She states she has no family doctor. She does have a nebulizer machine at home, albuterol, and Symbicort. Currently, she is on 2 L of oxygen, and getting saline at 20 mL an hour. She seen in ER room 17. White count 13.4, hemoglobin 11.2, hematocrit 33.1, and platelet count 247,000. Sodium 131, potassium 4.4, chlorides 99, CO2 24, BUN 9, creatinine 0.55. Testing for influenza A, influenza B, respiratory syncytial virus, coronavirus, and group A strep, all negative. Chest x-ray shows some patchy by lateral infil trates. Some of which may be acute and some of which may be more chronic in nature. The patient is seen today for 02/13/2023 in follow-up on the regular medical floor. She is currently sitting up in bed. Awake and alert in no acute distress. Breathing a bit easier today compared to yesterday. Not quite back to her baseline. Still with a loose nonproductive cough. Some chest tightness and wheezing. Maintaining O2 saturations in the 90s on 2 L/m per nasal cannula. Normal saline 20 mg per hour. Blood cultures reveal no growth to date. Sputum culture pending. Pro-calcitonin 0.47. She remains on ceftriaxone and azithromycin. Continue on DuoNeb inhalations, Pulmicort and Perforomist inhalations, IV Solu-Medrol. She states she did quit smoking several years ago. She used to vape for her anxiety but states that did not help and she has not been vaping lately either. Progress note dated 02/14/2023. The patient is seen today in room 517. This is a 52-year-old female admitted with a COPD exacerbation. The patient is doing better. Currently, she is on 2 L of oxygen. She is getting saline at 20 mL an hour. A repeat chest x-ray will be done today. The patient still complains of shortness of breath, chest tightness, wheezing, and cough. No new labs today. Labs from yesterday have been reviewed. Sputum sampling, and blood cultures have all been negative. I'm evaluating this patient today 02/15/2023 in follow-up on the general medical floor. Patient is currently resting comfortably, on 2 L nasal cannula, in no acute distress. Chest x-ray was repeated yesterday which showed chronic emphysematous changes with bilateral interstitial edema or and/or fibrosis red emonstrated. No new focal infiltrates. No significant change from recent x- ray. Patient's CBC from yesterday shows an improved WBC count down to 9.3, hemoglobin 10.5, hematocrit 33.3, platelets 336,000. Patient's initial procalcitonin level was elevated at 0.47. She is afebrile. Continues to r eceive Zithromax. Also receiving bronchodilators, budesonide and formoterol inhalations, and prednisone taper. Vital signs are stable. On 02/16/2023, the patient feels that she is doing better. She remains on oxygen at 2 L/m nasal cannula. Less bronchospastic and wheezy compared to yesterday. No new complaints. At home, the patient does not have oxygen. She uses Symbicort 2 puffs twice a day and albuterol rescue inhaler. Currently she is on a prednisone burst taper. She is an ex-smoker. Objective - Vital Signs Vital signs: Vital Signs Temp 98.2 F 02/16/23 07:23 Pulse 82 02/16/23 12:32 Resp 16 02/16/23 07:23 BP 162/96 02/16/23 07:23 Pulse Ox 96 02/16/23 07:23 FiO2 Intake & Output 02/15/23 02/16/23 02/16/23 18:59 06:59 18:59 Intake Total 590 Balance 590 Intake: Oral 590 Other: Voiding Method Toilet Toilet # Voids 2 2 - Exam GENERAL EXAM: Alert, 52-year-old white female , comfortable in no apparent distr ess. HEAD: Normocephalic and atraumatic EYES: Normal reaction of pupils, equal size. NOSE: Clear with pink turbinates. THROAT: No erythema or exudates. NECK: No masses, no JVD. CHEST: No chest wall deformity. LUNGS: Equal air entry with scattered rhonchi. no crackles, wheeze, or dullness. On 2 L nasal cannula. No conversational dyspnea or accessory muscle use.. CVS: S1 and S2 normal with no audible murmur, regular rhythm. No extra heart sounds ABDOMEN: No hepatosplenomegaly, active bowel sounds, no guarding or rigidity. SPINE: No scoliosis or deformity SKIN: No rashes CENTRAL NERVOUS SYSTEM: No focal deficits, tone is normal in all 4 extremities. EXTREMITIES: There is no peripheral edema, clubbing, or cyanosis. Peripheral pulses are intact. - Labs CBC & Chem 7: 02/15/23 03:20 02/15/23 03:20 Labs: Microbiology - Last 24 Hours (Table) 02/12/23 01:23 Blood Culture - Preliminary Blood No Growth after 96 hours 02/11/23 18:30 Blood Culture - Preliminary Blood No Growth after 96 hours 02/11/23 18:45 Blood Culture - Preliminary Blood No Growth after 96 hours Assessment and Plan Plan: Acute on chronic hypoxemic respiratory failure secondary to an acute exacerbation of chronic obstructive pulmonary disease. Prior history of heavy tobacco use, for many years. Chronic changes on chest x-ray/computed tomography scan. History of anxiety. Plan: Continues to improve Currently on 2 L nasal cannula; she does use home oxygen Continue bronchodilators Switch the patient to Symbicort inhaler Continue prednisone taper Continue empiric azithromycin Recheck procalcitonin level from today shows that the levels are improving. Possible home tomorrow
[2023-02-16 16:20] VITALS: BP 125/73; PULSE 101; TEMP 98.5
== END 2023-02-16 16:50 | disposition home or self-care (01) | DRG 871 ==
LOC: EC 18:26 → 3SCARD 20:33 → 5NMEDONC 02-12 11:24
PROVIDERS: ADMIT Hospitalist; ATTEND Hospitalist
DX: A41.9 Sepsis, unspecified organism (principal); J15.9 Unspecified bacterial pneumonia; J96.21 Acute and chronic respiratory failure with hypoxia; J44.0 Chronic obstructive pulmonary disease with (acute) lower respiratory infection; J44.1 Chronic obstructive pulmonary disease with (acute) exacerbation; Z87.891 Personal history of nicotine dependence; F41.9 Anxiety disorder, unspecified; Z79.51 Long term (current) use of inhaled steroids; Z79.899 Other long term (current) drug therapy; T38.0X5A Adverse effect of glucocorticoids and synthetic analogues, initial encounter; D72.829 Elevated white blood cell count, unspecified; Z28.310 Unvaccinated for COVID-19; Z20.822 Contact with and (suspected) exposure to COVID-19
CPT/HCPCS: 36415; 71045; 71046; 80048; 80053; 83605; 84145; 85025; 85027; 85610; 85730; 87040; 87070; 87205; 87636; 87651; 93005; 94640; 94760

== ENCOUNTER 2023-04-08 09:07 | Inpatient (IN) | payer MEDICARE, OTHER ==
[2023-04-08] MEDS ORDERED: methylPREDNISolone SOD SUCCI 125 MG/2 ML VIAL IV STA (09:22)
[2023-04-08] MEDS ORDERED: LORazepam 2 MG/ML INJ IV STA ×2 (09:22→12:28)
[2023-04-08] MEDS ORDERED: IPRATROPIUM-ALBUTEROL 3 ML NEB INHALATION STA ×2 (09:22→11:06)
--- NOTE | 2023-04-08 09:24 | ED ---
General Adult HPI - General Chief complaint: Shortness of Breath Stated complaint: HAYLEY Time Seen by Provider: 04/08/23 09:18 Source: patient, family, EMS, RN notes reviewed Mode of arrival: EMS Limitations: no limitations - History of Present Illness Initial comments: Patient is a pleasant 52-year-old female presenting to the emergency department with concern with difficulty breathing. Onset of symptoms was just a couple days ago. Patient does have history of COPD with similar symptoms. Patient has minimal cough. No congestion or fever. No leg pain or leg swelling. No chest pain. Patient does admit to feeling anxious. - Related Data Home Medications Medication Instructions Recorded Confirmed Albuterol Inhaler [Ventolin Hfa 2 puff INHALATION RT-Q4H PRN 08/17/22 04/08/23 Inhaler] Ipratropium-Albuterol Nebulize 3 ml INHALATION RT-QID PRN 08/17/22 04/08/23 [Duoneb 0.5 mg-3 mg/3 ml Soln] Montelukast [Singulair] 10 mg PO HS 08/17/22 04/08/23 Budesonide-Formot 160-4.5 Mcg 2 puff INHALATION RT-BID 02/11/23 04/08/23 [Symbicort 160-4.5 Mcg Inhaler] Cyanocobalamin (Vitamin B-12) 1,000 mcg PO DAILY 02/11/23 04/08/23 [Vitamin B-12] Multivit-Min/FA/Lycopen/Lutein 1 tab PO DAILY 02/11/23 04/08/23 [Centrum Silver Tablet] ALPRAZolam [Xanax] 1 mg PO BID PRN 04/08/23 04/08/23 Albuterol Nebulized [Ventolin 2.5 mg INHALATION RT-Q4H PRN 04/08/23 04/08/23 Nebulized] Allergies Allergy/AdvReac Type Severity Reaction Status Date / Time No Known Allergies Allergy Verified 04/08/23 10:54 Review of Systems ROS Statement: Those systems with pertinent positive or pertinent negative responses have been documented in the HPI. ROS Other: All systems not noted in ROS Statement are negative. Constitutional: Denies: fever Eyes: Denies: eye pain ENT: Denies: ear pain Respiratory: Reports: as per HPI, dyspnea Endocrine: Reports: fatigue Gastrointestinal: Denies: abdominal pain Genitourinary: Denies: urgency Musculoskeletal: Denies: back pain Past Medical History Past Medical History: Asthma, COPD History of Any Multi-Drug Resistant Organisms: None Reported Past Surgical History: Tonsillectomy, Tubal Ligation Past Anesthesia/Blood Transfusion Reactions: No Reported Reaction Past Psychological History: Anxiety Smoking Status: Former smoker Past Alcohol Use History: None Reported Past Drug Use History: None Reported General Exam Limitations: no limitations General appearance: alert Head exam: Present: normocephalic Eye exam: Present: normal appearance Neck exam: Present: normal inspection Respiratory exam: Present: wheezes, decreased breath sounds Cardiovascular Exam: Present: tachycardia GI/Abdominal exam: Present: soft. Absent: tenderness Extremities exam: Present: normal inspection. Absent: pedal edema, calf tenderness Neurological exam: Present: alert Psychiatric exam: Present: normal affect, normal mood Skin exam: Present: normal color Course Vital Signs 04/08/23 04/08/23 04/08/23 09:14 09:30 09:35 Temperature Pulse Rate 144 H 147 H 141 H Respiratory 28 H 24 20 Rate Blood Pressure 124/88 116/85 O2 Sat by Pulse 93 L 93 L Oximetry 04/08/23 04/08/23 04/08/23 09:43 10:00 10:30 Temperature Pulse Rate 141 H 142 H 144 H Respiratory 28 H 24 24 Rate Blood Pressure 117/72 126/84 O2 Sat by Pulse 92 L 92 L Oximetry 04/08/23 11:00 Temperature 98.9 F Pulse Rate 137 H Respiratory 24 Rate Blood Pressure 107/90 O2 Sat by Pulse 89 L Oximetry - Reevaluation(s) Reevaluation #1: 04/08/23 11:14 There is concern for sepsis diagnosed at 11:05 AM. Blood culture and lactic acid and IV antibiotics while been ordered. EKG Findings - EKG Results: EKG: interpreted by ERMD, sinus rhythm, normal axis, normal QRS, normal ST/T EKG shows: tachycardia Medical Decision Making - Medical Decision Making Was pt. sent in by a medical professional or institution (, PA, AIRLINE STEWARDESS, urgent care, hospital, or long-term...) When possible be specific @ -No Did you speak to anyone other than the patient for history (EMS, parent, family, police, friend...)? What history was obtained from this source @ -EMS helps provide history as they did transfer patient Did you review nursing and triage notes (agree or disagree)? Why? @ -I reviewed and agree with nursing and triage notes Were old charts reviewed (outside hosp., previous admission, EMS record, old EKG, old radiological studies, urgent care reports/EKG's, long-term records)? Report findings @ -No old charts were reviewed Differential Diagnosis (chest pain, altered mental status, abdominal pain women, abdominal pain men, vaginal bleeding, weakness, fever, dyspnea, syncope, headache, dizziness, GI bleed, back pain, seizure, CVA, palpatations, mental health)? @ -Differential Dyspnea: Coronary syndrome, arrhythmia, tamponade, asthma, COPD, pulmonary embolism, pneumonia, pneumothorax, pulmonary effusion, anaphylaxis, diabetic ketoacidosis, flailed chest, pulmonary contusion, diaphragmatic rupture, anemia, neuromuscular, this is not meant to be an all-inclusive list. EKG interpreted by me (3pts min.). @ -As above X-rays interpreted by me (1pt min.). @ -Chest x-ray shows consolidation left lingula CT interpreted by me (1pt min.). @ -None done U/S interpreted by me (1pt. min.). @ -None done What testing was considered but not performed or refused? (CT, X-rays, U/S, labs)? Why? @ -None What meds were considered but not given or refused? Why? @ -None Did you discuss the management of the patient with other professionals (professionals i.e. , PA, AIRLINE STEWARDESS, lab, RT, psych nurse, social services counselor, composition tile layer, teacher, penal officer, casework supervisor)? Give summary @ -Case was discussed with Dr. Ortega, who will admit covering hospital call. Was smoking cessation discussed for >3mins.? @ -No Was critical care preformed (if so, how long)? @ -32 minutes critical care time Were there social determinants of health that impacted care today? How? (Homelessness, low income, unemployed, alcoholism, drug addiction, leiva sportation, low edu. Level, literacy, decrease access to med. care, usp, rehab)? @ -No Was there de-escalation of care discussed even if they declined (Discuss DNR or withdrawal of care, Hospice)? DNR status @ -No What co-morbidities impacted this encounter? (DM, HTN, Smoking, COPD, CAD, Cancer, CVA, ARF, Chemo, Hep., AIDS, mental health diagnosis, sleep apnea, morbid obesity)? @ -None Was patient admitted / discharged? Hospital course, mention meds given and route, prescriptions, significant lab abnormalities, going to OR and other pertinent info. @ -Patient reevaluated and does appear more comfortable. Patient still is tachycardic. Patient will receive repeat DuoNeb. Patient will be admitted with pulmonary consult. Undiagnosed new problem with uncertain prognosis? @ -No Drug Therapy requiring intensive monitoring for toxicity (Heparin, Nitro, Insulin, Cardizem)? @ -No Were any procedures done? @ -No Diagnosis/symptom? @ -COPD, pneumonia, sepsis Acute, or Chronic, or Acute on Chronic? @ -Acute, acute, acute Uncomplicated (without systemic symptoms) or Complicated (systemic symptoms)? @ -default Side effects of treatment? @ -No Exacerbation, Progression, or Severe Exacerbation? @ -No Poses a threat to life or bodily function? How? (Chest pain, [place], NH, pneumonia, PE, COPD, DKA, ARF, appy, cholecystitis, CVA, Diverticulitis, Homicidal, Suicidal, threat to staff... and all critical care pts) @ -No - Lab Data Result diagrams: 04/08/23 09:30 04/08/23 09:30 Lab Results 04/08/23 04/08/23 04/08/23 Range/Units 09:30 09:30 09:30 WBC 20.1 H (3.8-10.6) k/uL RBC 4.59 (3.80-5.40) m/uL Hgb 13.2 (11.4-16.0) gm/dL Hct 41.0 (34.0-46.0) % MCV 89.3 (80.0-100.0) fL MCH 28.8 (25.0-35.0) pg MCHC 32.3 (31.0-37.0) g/dL RDW 15.1 (11.5-15.5) % Plt Count 291 (150-450) k/uL MPV 7.1 Neutrophils % 86 % Lymphocytes % 6 % Monocytes % 4 % Eosinophils % 2 % Basophils % 0 % Neutrophils # 17.2 H (1.3-7.7) k/uL Lymphocytes # 1.2 (1.0-4.8) k/uL Monocytes # 0.9 (0-1.0) k/uL Eosinophils # 0.5 (0-0.7) k/uL Basophils # 0.1 (0-0.2) k/uL PT 10.2 (9.0-12.0) sec INR 1.0 (<1.2) APTT 24.4 (22.0-30.0) sec Sodium 136 L (137-145) mmol/L Potassium 4.8 (3.5-5.1) mmol/L Chloride 97 L (98-107) mmol/L Carbon Dioxide 30 (22-30) mmol/L Anion Gap 9 mmol/L BUN 11 (7-17) mg/dL Creatinine 0.52 (0.52-1.04) mg/dL Est GFR (CKD-EPI)AfAm >90 (>60 ml/min/1.73 sqM) Est GFR (CKD-EPI)NonAf >90 (>60 ml/min/1.73 sqM) Glucose 66 L (74-99) mg/dL Plasma Lactic Acid Adrian (0.7-2.0) mmol/L Calcium 9.1 (8.4-10.2) mg/dL Magnesium 1.4 L (1.6-2.3) mg/dL Total Bilirubin 0.9 (0.2-1.3) mg/dL AST 28 (14-36) U/L ALT 19 (4-34) U/L Alkaline Phosphatase 88 (38-126) U/L Troponin I (0.000-0.034) ng/mL Total Protein 6.8 (6.3-8.2) g/dL Albumin 4.0 (3.5-5.0) g/dL Coronavirus (PCR) (Not Detectd) 04/08/23 04/08/23 04/08/23 Range/Units 09:30 09:30 09:30 WBC (3.8-10.6) k/uL RBC (3.80-5.40) m/uL Hgb (11.4-16.0) gm/dL Hct (34.0-46.0) % MCV (80.0-100.0) fL MCH (25.0-35.0) pg MCHC (31.0-37.0) g/dL RDW (11.5-15.5) % Plt Count (150-450) k/uL MPV Neutrophils % % Lymphocytes % % Monocytes % % Eosinophils % % Basophils % % Neutrophils # (1.3-7.7) k/uL Lymphocytes # (1.0-4.8) k/uL Monocytes # (0-1.0) k/uL Eosinophils # (0-0.7) k/uL Basophils # (0-0.2) k/uL PT (9.0-12.0) sec INR (<1.2) APTT (22.0-30.0) sec Sodium (137-145) mmol/L Potassium (3.5-5.1) mmol/L Chloride (98-107) mmol/L Carbon Dioxide (22-30) mmol/L Anion Gap mmol/L BUN (7-17) mg/dL Creatinine (0.52-1.04) mg/dL Est GFR (CKD-EPI)AfAm (>60 ml/min/1.73 sqM) Est GFR (CKD-EPI)NonAf (>60 ml/min/1.73 sqM) Glucose (74-99) mg/dL Plasma Lactic Acid Ardian 0.9 (0.7-2.0) mmol/L Calcium (8.4-10.2) mg/dL Magnesium (1.6-2.3) mg/dL Total Bilirubin (0.2-1.3) mg/dL AST (14-36) U/L ALT (4-34) U/L Alkaline Phosphatase (38-126) U/L Troponin I <0.012 (0.000-0.034) ng/mL Total Protein (6.3-8.2) g/dL Albumin (3.5-5.0) g/dL Coronavirus (PCR) Not Detected (Not Detectd) Disposition Clinical Impression: Pneumonia, COPD with acute exacerbation, Sepsis Disposition: ADMITTED IP TO THIS HOSP Condition: Serious Is patient prescribed a controlled substance at d/c from ED?: No Referrals: None,Stated [Primary Care Provider] - 1-2 days Time of Disposition: 11:15
[2023-04-08 09:50] LABS: Basophils # (A) 0.1 k/uL (0-0.2); Basophils % (A) 0 %; Eosinophils # (A) 0.5 k/uL (0-0.7); Eosinophils % (A) 2 %; HGB 13.2 gm/dL (11.4-16.0); Lymphocytes # (A) 1.2 k/uL (1.0-4.8); Lymphocytes % (A) 6 %; MCH 28.8 pg (25.0-35.0); MCHC 32.3 g/dL (31.0-37.0); MCV 89.3 fL (80.0-100.0); Mean Platelet Volume 7.1; Monocytes # (A) 0.9 k/uL (0-1.0); Monocytes % (A) 4 %; Neutrophils # (A) 17.2 k/uL (1.3-7.7); Neutrophils % (A) 86 %; Platelet Count 291 k/uL (150-450); RBC 4.59 m/uL (3.80-5.40); RDW 15.1 % (11.5-15.5); WBC 20.1 k/uL (3.8-10.6)
[2023-04-08 10:02] LABS: ALT 19 U/L (4-34); AST 28 U/L (14-36); African American GFR (CKD) >90 (>60 ml/min/1.73 sqM); Alkaline Phosphatase 88 U/L (38-126); Anion Gap 9 mmol/L; Blood Urea Nitrogen 11 mg/dL (7-17); Calcium 9.1 mg/dL (8.4-10.2); Carbon Dioxide 30 mmol/L (22-30); Chloride 97 mmol/L (98-107); Glucose 66 mg/dL (74-99); Magnesium 1.4 mg/dL (1.6-2.3); Non-African American GFR(CKD) >90 (>60 ml/min/1.73 sqM); Potassium 4.8 mmol/L (3.5-5.1); Sodium 136 mmol/L (137-145); Total Bilirubin 0.9 mg/dL (0.2-1.3); Total Protein 6.8 g/dL (6.3-8.2)
[2023-04-08 10:16] LABS: Partial Thromboplastin Time 24.4 sec (22.0-30.0); Prothrombin Time 10.2 sec (9.0-12.0)
--- NOTE | 2023-04-08 10:30 | XR ---
EXAMINATION TYPE: XR chest 2V DATE OF EXAM: 04/08/2023 COMPARISON: 02/14/2023 TECHNIQUE: PA and lateral views submitted. HISTORY: Difficulty breathing FINDINGS: There is a nodular area of mass or consolidation in the lingular segment of the left upper lobe. Hear t size is enlarged with no overt failure. Hyperinflation is seen and there is tiny suggestive of cleaning technician marcy interstitial pulmonary fibrosis Osseous structures demonstrate hypertrophic and degenerative changes of the spine. Diffuse osteopenia . Arthropathy of the shoulders. Biapical pleural thickening. IMPRESSION: 1. New area of nodular consolidation or mass lingular segment left upper lobe. Recommend CT scan of t he chest to assess for pneumonia versus neoplasm.. 2. COPD and findings suggestive of pulmonary fibrosis UIP type.
[2023-04-08] MEDS ORDERED: SODIUM CHLORIDE 0.9% 500 ML 500 ML IV STA (11:12)
[2023-04-08] MEDS ORDERED: NALOXONE 0.4 MG/ML 1 ML VIAL IVP PRN (11:16)
[2023-04-08] MEDS ORDERED: PNEUMONIA PROTOCOL UTILIZED 1 EACH MISC PO PRN (11:16)
[2023-04-08] MEDS ORDERED: AZITHROMYCIN 500 MG in SODIUM CHLORIDE 0.9% 250 ML IVPB STA (11:16)
[2023-04-08] MEDS: IPRATROPIUM-ALBUTEROL 3 ML NEB INHALATION SCH ×3 (11:35→20:02)
[2023-04-08] MEDS: methylPREDNISolone SOD SUCCI 125 MG/2 ML VIAL IV SCH ×3 (12:20→23:38)
[2023-04-08] MEDS ORDERED: SODIUM CHLORIDE 0.9% 1,000 ML IV ONE (13:34)
[2023-04-08] MEDS ORDERED: RX INFO: IV CONTRAST WAS GIVEN 1 EACH MISC MISCELLANE PRN (14:01)
[2023-04-08] MEDS: MAGNESIUM SULFATE-D5W PMX 1 GM in DEXTROSE/WATER 1 100ML.BAG IVPB SCH ×4 (14:13→18:19)
[2023-04-08 14:43] LABS: ABG Base Excess 0.2 mmol/L; ABG HCO3 26 mmol/L (21-25); ABG Oxygen Saturation 97.4 % (94-97); ABG PCO2 48 mmHg (35-45); ABG PH 7.34 (7.35-7.45); ABG PO2 92 mmHg (83-108); ABG TCO2 28 mmol/L (19-24)
--- NOTE | 2023-04-08 15:00 | P.CNPUL ---
History of Present Illness Consult date: 04/08/23 Requesting physician: Sola Cody Reason for consult: COPD Chief complaint: Shortness of breath, anxiety History of present illness: This is a 52-year-old female patient with a known history of severe chronic obstructive pulmonary disease and chronic hypoxemic respiratory failure secondary to chronic tobacco dependence, anxiety. She is also noted to have chronic changes on chest x-ray and CT scans in the past. She was last seen in our office in September 2022 She was just discharged from here 02/16/2023 for COPD exacerbation. She presented back to the emergency room early this morning with worsening shortness of breath, cough and congestion. Chest x-ray reveals an area of nodular consolidation or masses in the lingular segment of the left upper lobe. Evidence of COPD and findings suggestive of pulmonary fibrosis/UIP. Previous CAT scan from August 2022 revealed extensive reticular nodule infiltrates. Probably pulmonary interstitial fibrosis. She is seen in the emergency department. Presently on BiPAP 10/5 and 36% FiO2. She remains quite anxious. She states she's had symptoms for about 2-1/2 days now. No fever or chills. No hemoptysis. White count 20.1. Hemoglobin 13.2. D-dimer 1.79. Sodium 136. Potassium 4.8. Bicarb 30. BUN 11. Creatinine 0.52. AST 28. ALT 19. Troponin negative 1. Chronic virus by PCR not detected. Arterial blood gases revealed a pO2 of 92, pCO2 48, pH 7.34. Pro-calcitonin pending. CT angiogram pending Review of Systems REVIEW OF SYSTEMS: CONSTITUTIONAL: Denies any recent significant weight loss or weight gain. EYES: Denies change in vision. EARS, NOSE, MOUTH, THROAT: Denies headaches, denies sore throat. CARDIOVASCULAR: Denies chest pain, palpitations or syncopal episodes. RESPIRATORY: Positive for shortness of breath, cough, congestion no hemoptysis. GASTROINTESTINAL: Denies change in appetite, denies abdominal pain GENITOURINARY: Denies hematuria, denies infections. MUSKULOSKELETAL: Denies pain, denies swelling. INTEGUMENTARY: Denies rash, denies eczema. NEUROLOGICAL: Denies recent memory loss, no recent seizure activity. PSYCHIATRIC: Positive for anxiety, denies depression. HEMATOLOGIC/LYMPHATIC: Denies anemia, denies enlarged lymph nodes. Past Medical History Past Medical History: Asthma, COPD History of Any Multi-Drug Resistant Organisms: None Reported Past Surgical History: Tonsillectomy, Tubal Ligation Past Anesthesia/Blood Transfusion Reactions: No Reported Reaction Past Psychological History: Anxiety Smoking Status: Former smoker Past Alcohol Use History: None Reported Past Drug Use History: None Reported Medications and Allergies Home Medications Medication Instructions Recorded Confirmed Type Albuterol Inhaler [Ventolin Hfa 2 puff INHALATION RT-Q4H PRN 08/17/22 04/08/23 History Inhaler] Ipratropium-Albuterol Nebulize 3 ml INHALATION RT-QID PRN 08/17/22 04/08/23 History [Duoneb 0.5 mg-3 mg/3 ml Soln] Montelukast [Singulair] 10 mg PO HS 08/17/22 04/08/23 History Budesonide-Formot 160-4.5 Mcg 2 puff INHALATION RT-BID 02/11/23 04/08/23 History [Symbicort 160-4.5 Mcg Inhaler] Cyanocobalamin (Vitamin B-12) 1,000 mcg PO DAILY 02/11/23 04/08/23 History [Vitamin B-12] Multivit-Min/FA/Lycopen/Lutein 1 tab PO DAILY 02/11/23 04/08/23 History [Centrum Silver Tablet] ALPRAZolam [Xanax] 1 mg PO BID PRN 04/08/23 04/08/23 History Albuterol Nebulized [Ventolin 2.5 mg INHALATION RT-Q4H PRN 04/08/23 04/08/23 History Nebulized] Allergies Allergy/AdvReac Type Severity Reaction Status Date / Time No Known Allergies Allergy Verified 04/08/23 10:54 Physical Exam Vitals: Vital Signs Temp Pulse Resp BP Pulse Ox FiO2 04/08/23 14:44 111 H 26 H 122/94 95 04/08/23 14:19 115 H 95 04/08/23 13:41 120 H 32 H 107/69 93 L 04/08/23 13:34 40 04/08/23 13:18 40 04/08/23 11:44 128 H 20 96 04/08/23 11:35 135 H 20 04/08/23 11:00 98.9 F 137 H 24 107/90 89 L 04/08/23 10:30 144 H 24 126/84 92 L 04/08/23 10:00 142 H 24 117/72 92 L 04/08/23 09:43 141 H 28 H 04/08/23 09:35 141 H 20 04/08/23 09:30 147 H 24 116/85 93 L 04/08/23 09:17 30 H 04/08/23 09:14 144 H 28 H 124/88 93 L Intake and Output 04/07/23 04/08/23 04/08/23 22:59 06:59 14:59 Other: Weight 64.41 kg GENERAL EXAM: Alert, anxious 52-year-old female, on BiPAP 10/5 and 36% FiO2, fairly comfortable in no apparent distress. HEAD: Normocephalic. EYES: Normal reaction of pupils, equal size. NOSE: Clear with pink turbinates. THROAT: No erythema or exudates. NECK: No masses, no JVD. CHEST: No chest wall deformity. LUNGS: Equal air entry with scattered rhonchi, wheeze, diminished. CVS: S1 and S2 normal with no audible murmur, regular rhythm. ABDOMEN: No hepatosplenomegaly, normal bowel sounds, no guarding or rigidity. SPINE: No scoliosis or deformity SKIN: No rashes CENTRAL NERVOUS SYSTEM: No focal deficits, tone is normal in all 4 extremities. EXTREMITIES: There is no peripheral edema. No clubbing, no cyanosis. Peripheral pulses are intact. Results - Laboratory Findings CBC and BMP: 04/08/23 09:30 04/08/23 09:30 ABG ABG pH 7.34 (7.35-7.45) L 04/08/23 14:39 ABG pCO2 48 mmHg (35-45) H 04/08/23 14:39 ABG pO2 92 mmHg (83-108) 04/08/23 14:39 ABG O2 Saturation 97.4 % (94-97) H 04/08/23 14:39 PT/INR, D-dimer PT 10.2 sec (9.0-12.0) 04/08/23 09:30 INR 1.0 (<1.2) 04/08/23 09:30 D-Dimer 1.79 mg/L FEU (<0.60) H 04/08/23 09:30 Abnormal lab findings: Abnormal Labs 04/08/23 04/08/2304/08/23 09:30 09:30 09:30 WBC 20.1 H Neutrophils # 17.2 H D-Dimer 1.79 H ABG pH ABG pCO2 ABG HCO3 ABG Total CO2 ABG O2 Saturation Sodium 136 L Chloride 97 L Glucose 66 L Magnesium 1.4 L 04/08/23 14:39 WBC Neutrophils # D-Dimer ABG pH 7.34 L ABG pCO2 48 H ABG HCO3 26 H ABG Total CO2 28 H ABG O2 Saturation 97.4 H Sodium Chloride Glucose Magnesium - Diagnostic Findings Chest x-ray: image reviewed Assessment and Plan Assessment: Acute on chronic hypoxemic respiratory failure secondary to an acute exacerbation of chronic obstructive pulmonary disease Acute on chronic hypercapnic respiratory failure secondary to above History of extensive reticular nodule infiltrates, possible underlying pulmonary interstitial fibrosis History of chronic tobacco dependence History of anxiety Plan: The patient was seen and evaluated Chest x-ray, labs, ABGs and medications reviewed CT angiogram pending Continue DuoNeb inhalations, Symbicort, Solu-Medrol, Singulair Continue ceftriaxone and azithromycin for now Procalcitonin pending Continue BiPAP support for now Titrate the FiO2 as tolerated We will continue to follow and make further recommendations based on her clinical status I have personally seen and examined the patient, performed the documentation and the assessment and plan as written. Number of minutes spent on the visit: 20.
[2023-04-08] MEDS ORDERED: ACETAMINOPHEN TAB 325 MG TAB PO PRN (15:08)
--- NOTE | 2023-04-08 15:11 | P.HPIM ---
History of Present Illness H&P Date: 04/08/23 Patient is a 52-year-old female with history of COPD presenting with acute dyspnea. She claims that it started 3 days ago. She claims that she was traveling a few days ago by car but only for 3 hours. She had multiple scars along the way. She denies any eye or redness. She denies any significant cough, denies any fevers or chills. She had some chest pain yesterday along with anxiety which has now resolved. She denies any palpitations, abdominal pain, nausea, vomiting, urinary or bowel complaints. In the ED, she tachycardic to 144, tachypnea to 28, blood pressure 124/88, saturating at 93% on nasal cannula, temperature or amount of oxygen not recorded in EMR. WBC 20.1, hemoglobin 13.2, sodium 136, chloride 97, glucose 66, creatinine 0.52, magnesium 1.4, troponin negative, COVID-19 test was negative. Lactic acid was 0.9. Chest x-ray shows left-sided opacity concerning for pneumonia. EKG shows sinus tachycardia. Patient was given ceftriaxone and azithromycin in the ED, as well as breathing treatment, and IV steroids. She was also given 500 mL of normal saline. Pertinent positives and negatives as discussed in HPI, a complete review of systems was performed and all other systems are negative. Patient seen and examined at bedside. Vital signs reviewed General: nontoxic, no distress, appears at stated age Derm: warm, dry Head: atraumatic, normocephalic, symmetric Eyes: EOMI, no lid lag, anicteric sclera, pupils equal round reactive to light ENT: Nose and ears atraumatic Neck: No thyromegaly, supple Mouth: no lip lesion, mucus membranes moist Cardiovascular: S1S2 reg, tachycardic, no murmur, no edema Lungs: Bilateral rhonchi, no wheeze, no accessory muscle use, currently on BiPAP Abdominal: soft, nontender to palpation, no guarding, no appreciable organomegaly Ext: no gross muscle atrophy, muscle strength muscle strength 5 out of 5 in all 4 extremities, no contractures Neuro: CN II-XII grossly intact Psych: Alert, oriented, appropriate affect Assessment/Plan: Active: Sepsis secondary to community-acquired pneumonia COPD exacerbation Sinus tachycardia Hypoglycemia Hypomagnesemia - Chest x-ray independently interpreted, shows left-sided opacity -2 g IV ceftriaxone daily, 500 mg azithromycin daily -Blood cultures, and sputum cultures pending -Pro calcitonin ordered -On Solu-Medrol 60 mg IV every 6 hours, bronchodilators -EKG independently interpreted shows, sinus tachycardia -CTA pending -Another 1 L of normal saline bolus ordered -4 g of IV magnesium ordered -Pulmonology consult The patient is admitted with an anticipated greater than 2 midnight stay as inpatient status for evaluation of CAP and COPD exacerbation. Surrogate decision-maker: daughter CODE STATUS:full code DVT prophylaxis: lovenox Anticipated discharge date: pending clinical course Anticipated discharge place: pending clinical course A total of 55 minutes was spent on the care of this complex patient more than 50% of the time was spent in counseling and care coordination. Past Medical History Past Medical History: Asthma, COPD History of Any Multi-Drug Resistant Organisms: None Reported Past Surgical History: Tonsillectomy, Tubal Ligation Past Anesthesia/Blood Transfusion Reactions: No Reported Reaction Past Psychological History: Anxiety Smoking Status: Former smoker Past Alcohol Use History: None Reported Past Drug Use History: None Reported Medications and Allergies Home Medications Medication Instructions Recorded Confirmed Type Albuterol Inhaler [Ventolin Hfa 2 puff INHALATION RT-Q4H PRN 08/17/22 04/08/23 History Inhaler] Ipratropium-Albuterol Nebulize 3 ml INHALATION RT-QID PRN 08/17/22 04/08/23 History [Duoneb 0.5 mg-3 mg/3 ml Soln] Montelukast [Singulair] 10 mg PO HS 08/17/22 04/08/23 History Budesonide-Formot 160-4.5 Mcg 2 puff INHALATION RT-BID 02/11/23 04/08/23 History [Symbicort 160-4.5 Mcg Inhaler] Cyanocobalamin (Vitamin B-12) 1,000 mcg PO DAILY 02/11/23 04/08/23 History [Vitamin B-12] Multivit-Min/FA/Lycopen/Lutein 1 tab PO DAILY 02/11/23 04/08/23 History [Centrum Silver Tablet] ALPRAZolam [Xanax] 1 mg PO BID PRN 04/08/23 04/08/23 History Albuterol Nebulized [Ventolin 2.5 mg INHALATION RT-Q4H PRN 04/08/23 04/08/23 History Nebulized] Allergies Allergy/AdvReac Type Severity Reaction Status Date / Time No Known Allergies Allergy Verified 04/08/23 10:54 Physical Exam Vitals: Vital Signs Temp Pulse Resp BP Pulse Ox FiO2 04/08/23 14:44 111 H 26 H 122/94 95 04/08/23 14:19 115 H 95 04/08/23 13:41 120 H 32 H 107/69 93 L 04/08/23 13:34 40 04/08/23 13:18 40 04/08/23 11:44 128 H 20 96 04/08/23 11:35 135 H 20 04/08/23 11:00 98.9 F 137 H 24 107/90 89 L 04/08/23 10:30 144 H 24 126/84 92 L 04/08/23 10:00 142 H 24 117/72 92 L 04/08/23 09:43 141 H 28 H 04/08/23 09:35 141 H 20 04/08/23 09:30 147 H 24 116/85 93 L 04/08/23 09:17 30 H 04/08/23 09:14 144 H 28 H 124/88 93 L Intake and Output 04/08/23 04/08/23 04/08/23 06:59 14:59 22:59 Other: Weight 64.41 kg Results CBC & Chem 7: 04/08/23 09:30 04/08/23 09:30 Labs: Abnormal Lab Results - Last 24 Hours (Table) 04/08/23 04/08/23 04/08/23 Range/Units 09:30 09:30 09:30 WBC 20.1 H (3.8-10.6) k/uL Neutrophils # 17.2 H (1.3-7.7) k/uL D-Dimer 1.79 H (<0.60) mg/L FEU ABG pH (7.35-7.45) ABG pCO2 (35-45) mmHg ABG HCO3 (21-25) mmol/L ABG Total CO2 (19-24) mmol/L ABG O2 Saturation (94-97) % Sodium 136 L (137-145) mmol/L Chloride 97 L (98-107) mmol/L Glucose 66 L (74-99) mg/dL Magnesium 1.4 L (1.6-2.3) mg/dL 04/08/23 Range/Units 14:39 WBC (3.8-10.6) k/uL Neutrophils # (1.3-7.7) k/uL D-Dimer (<0.60) mg/L FEU ABG pH 7.34 L (7.35-7.45) ABG pCO2 48 H (35-45) mmHg ABG HCO3 26 H (21-25) mmol/L ABG Total CO2 28 H (19-24) mmol/L ABG O2 Saturation 97.4 H (94-97) % Sodium (137-145) mmol/L Chloride (98-107) mmol/L Glucose (74-99) mg/dL Magnesium (1.6-2.3) mg/dL
--- NOTE | 2023-04-08 15:41 | CT ---
EXAMINATION TYPE: CT angio chest CT DLP: 222.7 mGycm, Automated exposure control for dose reduction was used. DATE OF EXAM: 04/08/2023 3:30 PM COMPARISON: CT chest 08/17/2022, chest radiograph 04/08/2023 CLINICAL INDICATION:Female, 52 years old with history of dyspnea; Elevated d-dimer and shortness of b reath. TECHNIQUE/CONTRAST: CTA scan of the thorax is performed with IV Contrast, patient injected with 75ml mL of Isovue 370, pu lmonary embolism protocol. MIP images are created and reviewed. FINDINGS: Pulmonary Artery: There is no evidence for a central filling defect within the pulmonary vasculature to suggest acute pulmonary embolism. Limited evaluation of the segmental and subsegmental branches se condary to bolus timing. The pulmonary artery is of normal size. Reflux of contrast into the IVC and hepatic veins. Lungs/Pleura: No pleural effusion or pneumothorax. Similar pulmonary fibrotic changes with biapical p leural-parenchymal scarring when compared to prior examination. New left lower lobe patchy airspace o pacities. Emphysematous changes. Airway: Large airways are patent. Heart: Heart is within normal limits for size. No pericardial effusion. Mild coronary arterial calcif ications. Vasculature: No evidence of aortic aneurysm. Mediastinum: No evidence of adenopathy. Musculoskeletal: No acute osseous abnormalities. Multilevel degenerative disc disease. Increased thor acic kyphosis. No aggressive osseous adenopathy. Soft Tissues: Unremarkable. Lower neck: No significant findings. Upper Abdomen: No significant findings. IMPRESSION: 1. No evidence of central pulmonary embolism. Limited evaluation of the segmental and subsegmental br anches. 2. Redemonstration of pulmonary fibrotic changes with new left lower lobe patchy airspace opacities c oncerning for pneumonia.
[2023-04-08] MEDS: SYMBICORT 160-4.5 MCG INHALER INHALATION SCH (20:02)
[2023-04-08] MEDS: MONTELUKAST 10 MG TAB PO SCH (20:41)
[2023-04-08] MEDS ORDERED: ONDANSETRON 4 MG/2 ML VIAL IVP STA (20:50)
[2023-04-09 02:29] LABS: Glucose,Whole Blood 125 mg/dL (70-110)
[2023-04-09] MEDS: methylPREDNISolone SOD SUCCI 125 MG/2 ML VIAL IV SCH ×3 (06:09→17:32)
[2023-04-09 06:21] LABS: Glucose,Whole Blood 124 mg/dL (70-110)
--- NOTE | 2023-04-09 08:11 | XR ---
EXAMINATION TYPE: XR chest 2V DATE OF EXAM: 04/09/2023 COMPARISON: 04/08/2023 HISTORY: 52-year-old female pneumonia TECHNIQUE: PA and lateral views FINDINGS: Heart normal size. Aorta and pulmonary vasculature within normal limits. Patchy bibasilar opacities p ersist, slightly worsened now on the right. Some biapical opacities also persist, probably pleural pa renchymal scarring. Hyperinflation. No pleural effusion. Somewhat focal opacity right suprahilar mario on. Follow-up to ensure clearance. IMPRESSION: 1. COPD with bibasilar patchy infiltrates, slightly worsened on the right. 2. Somewhat focal right suprahilar opacity. Follow-up to ensure resolution and exclude an underlying nodule.
[2023-04-09] MEDS: IPRATROPIUM-ALBUTEROL 3 ML NEB INHALATION SCH ×4 (08:30→20:47)
[2023-04-09] MEDS: SYMBICORT 160-4.5 MCG INHALER INHALATION SCH ×2 (08:30→20:46)
[2023-04-09] MEDS: MULTIVITAMINS, THERA 1 EACH TAB PO SCH (08:42)
[2023-04-09] MEDS: ENOXAPARIN 40 MG/0.4 ML SYRINGE SQ SCH (08:42)
[2023-04-09] MEDS: CYANOCOBALAMIN 500 MCG TAB PO SCH (08:42)
[2023-04-09] MEDS ORDERED: AZITHROMYCIN 500 MG TAB PO SCH (09:00)
[2023-04-09 09:09] LABS: Basophils % (A) 0 %; Eosinophils # (A) 0.1 k/uL (0-0.7); Eosinophils % (A) 0 %; HCT 36.9 % (34.0-46.0); HGB 11.5 gm/dL (11.4-16.0); Hypochromasia Slight; Lymphocytes # (A) 0.6 k/uL (1.0-4.8); Lymphocytes % (A) 4 %; MCH 28.1 pg (25.0-35.0); MCV 90.5 fL (80.0-100.0); Mean Platelet Volume 7.9; Monocytes # (A) 0.4 k/uL (0-1.0); Monocytes % (A) 3 %; Neutrophils # (A) 15.1 k/uL (1.3-7.7); Neutrophils % (A) 93 %; Platelet Count 246 k/uL (150-450); RBC 4.08 m/uL (3.80-5.40); RDW 15.1 % (11.5-15.5); WBC 16.3 k/uL (3.8-10.6)
[2023-04-09] MEDS: ALPRAZolam 1 MG TAB PO PRN ×2 (09:19→21:25)
[2023-04-09 09:33] LABS: African American GFR (CKD) >90 (>60 ml/min/1.73 sqM); Anion Gap 11 mmol/L; Blood Urea Nitrogen 14 mg/dL (7-17); Calcium 8.9 mg/dL (8.4-10.2); Carbon Dioxide 27 mmol/L (22-30); Chloride 98 mmol/L (98-107); Glucose 167 mg/dL (74-99); Magnesium 1.8 mg/dL (1.6-2.3); Non-African American GFR(CKD) >90 (>60 ml/min/1.73 sqM); Potassium 4.7 mmol/L (3.5-5.1); Sodium 136 mmol/L (137-145)
[2023-04-09 11:30] LABS: Glucose,Whole Blood 106 mg/dL (70-110)
--- NOTE | 2023-04-09 13:26 | P.PN ---
Subjective Progress Note Date: 04/09/23 Hospital Course: 52-year-old female with history of COPD presenting with acute dyspnea. In the ED, she tachycardic to 144, tachypnea to 28, blood pressure 124/88, saturating at 93% on nasal cannula, temperature or amount of oxygen not recorded in EMR. WBC 20.1, hemoglobin 13.2, sodium 136, chloride 97, glucose 66, creatinine 0.52, magnesium 1.4, troponin negative, COVID-19 test was negative. Lactic acid was 0.9. Chest x-ray shows left-sided opacity concerning for pneumonia. EKG shows sinus tachycardia. Patient was given ceftriaxone and azithromycin in the ED, as well as breathing treatment, and IV steroids. She was also given 500 mL of normal saline. Patient admitted for acute hypoxic respiratory failure in the setting of pulmonary fibrosis as well as COPD exacerbation. Subjective: She is seen and examined at bedside. No acute events overnight. He claims that breathing is better. Denies any other complaints. Pertinent positives and negatives as discussed above, a complete review of systems was performed and all other systems are negative. Vitals Signs Reviewed. General: nontoxic, no distress, appears at stated age Derm: warm, dry Head: atraumatic, normocephalic, symmetric Eyes: EOMI, no lid lag, anicteric sclera Mouth: no lip lesion, mucus membranes moist Cardiovascular: S1S2 reg, no murmur Lungs: Bilateral fine rales , scattered wheezing, no accessory muscle use supplemental oxygen Abdominal: soft, nontender to palpation, no guarding, no appreciable organomegaly Ext: no gross muscle atrophy, no edema, no contractures Neuro: CN II-XI grossly intact, no focal neuro deficits Psych: Alert, oriented, appropriate affect Data Reviewed Today: Pertinent Labs: WBC 16.3, sodium 136, creatinine 0.5, magnesium 1.8, procalcitonin 0.06 Imaging: Chest x-ray independently interpreted Bibasilar opacities Chest CTA report reviewed, shows no PE, pulmonary fibrotic changes Assessment and Plan: Active: Acute hypoxic respiratory failure Pulmonary fibrosis, possibly exacerbation COPD exacerbation Sepsis, suspected community-acquired pneumonia -Negative procalcitonin -However has opacities and consolidation noted on CT and chest x-ray -Pulmonology consulted -Patient currently on IV ceftriaxone -Continue bronchodilators and IV Solu-Medrol -Continue to wean oxygen -Sputum cultures pending, blood cultures pending Resolved: Hypomagnesemia Hypoglycemia DVT ppx: Lovenox Code status: Full code Anticipated discharge place: Home Anticipated discharge time: 2-3 days Objective - Vital Signs Vital signs: Vital Signs Temp 98.2 F 04/09/23 12:00 Pulse 94 04/09/23 12:00 Resp 18 04/09/23 12:00 BP 105/58 04/09/23 12:00 Pulse Ox 95 04/09/23 12:00 FiO2 40 04/08/23 13:34 Intake & Output 04/08/23 04/09/23 04/09/23 18:59 06:59 18:59 Intake Total 10 940 Balance 10 940 Weight 64.41 kg 64.41 kg Intake: IV 10 0.9 10 Oral 940 Other: Voiding Method Toilet Toilet # Voids 1 - Labs CBC & Chem 7: 04/09/23 08:45 04/09/23 08:45 Labs: Abnormal Lab Results - Last 24 Hours (Table) 04/08/23 04/09/23 04/09/23 Range/Units 14:39 02:26 06:20 WBC (3.8-10.6) k/uL Neutrophils # (1.3-7.7) k/uL Lymphocytes # (1.0-4.8) k/uL ABG pH 7.34 L (7.35-7.45) ABG pCO2 48 H (35-45) mmHg ABG HCO3 26 H (21-25) mmol/L ABG Total CO2 28 H (19-24) mmol/L ABG O2 Saturation 97.4 H (94-97) % Sodium (137-145) mmol/L Creatinine (0.52-1.04) mg/dL Glucose (74-99) mg/dL POC Glucose (mg/dL) 125 H 124 H (70-110) mg/dL 04/09/23 04/09/23 Range/Units 08:45 08:45 WBC 16.3 H (3.8-10.6) k/uL Neutrophils # 15.1 H (1.3-7.7) k/uL Lymphocytes # 0.6 L (1.0-4.8) k/uL ABG pH (7.35-7.45) ABG pCO2 (35-45) mmHg ABG HCO3 (21-25) mmol/L ABG Total CO2 (19-24) mmol/L ABG O2 Saturation (94-97) % Sodium 136 L (137-145) mmol/L Creatinine 0.50 L (0.52-1.04) mg/dL Glucose 167 H (74-99) mg/dL POC Glucose (mg/dL) (70-110) mg/dL
--- NOTE | 2023-04-09 16:10 | P.PN ---
Subjective Progress Note Date: 04/09/23 Principal diagnosis: Acute exacerbation of COPD This is a 52-year-old female patient with a known history of severe chronic obstructive pulmonary disease and chronic hypoxemic respiratory failure secondary to chronic tobacco dependence, anxiety. She is also noted to have chronic changes on chest x-ray and CT scans in the past. She was last seen in our office in September 2022 She was just discharged from here 02/16/2023 for COPD exacerbation. She presented back to the emergency room early this morning with worsening shortness of breath, cough and congestion. Chest x-ray reveals an area of nodular consolidation or masses in the lingular segment of the left upper lobe. Evidence of COPD and findings suggestive of pulmonary fibrosis/UIP. Previous CAT scan from August 2022 revealed extensive reticular nodule infiltrates. Probably pulmonary interstitial fibrosis. She is seen in the emergency department. Presently on BiPAP 10/5 and 36% FiO2. She remains quite anxious. She states she's had symptoms for about 2-1/2 days now. No fever or chills. No hemoptysis. White count 20.1. Hemoglobin 13.2. D-dimer 1.79. Sodium 136. Potassium 4.8. Bicarb 30. BUN 11. Creatinine 0.52. AST 28. ALT 19. Troponin negative 1. Chronic virus by PCR not detected. Arterial blood gases revealed a pO2 of 92, pCO2 48, pH 7.34. Pro-calcitonin pending. CT angiogram pending Reevaluated today on 04/09/2023, patient is slightly better today compared to yesterday, she is now on 3 L nasal cannula with O2 sats of 95%, her CT of the chest showed mostly fibrotic changes bilaterally, and questionable pneumonia/scarring in the left lower lobe, I believe the findings are mostly findings of fibrotic changes, doubt pneumonia since her pro calcitonin level was normal. Nonetheless considering the extensiveness of the process, I think we will continue antibiotics for now. Clinically the patient is improving with the present course of antibiotics steroids and bronchodilators. Intermittently on BiPAP. Continues to have leukocytosis with W Lillian of 16.3. ABG yesterday showed a pO2 of 92 pCO2 48 pH of 7.34. Basic metabolic profile is normal. Objective - Vital Signs Vital signs: Vital Signs Temp 98.2 F 04/09/23 12:00 Pulse 92 04/09/23 16:00 Resp 18 04/09/23 14:00 BP 105/58 04/09/23 12:00 Pulse Ox 95 04/09/23 12:00 FiO2 40 04/08/23 13:34 Intake & Output 04/08/23 04/09/23 04/09/23 18:59 06:59 18:59 Intake Total 10 940 Balance 10 940 Weight 64.41 kg 64.41 kg Intake: IV 10 0.9 10 Oral 940 Other: Voiding Method Toilet Toilet # Voids 1 2 - Exam GENERAL EXAM: Alert, anxious 52-year-old female, on nasal cannula, off BiPAP. HEAD: Normocephalic. EYES: Normal reaction of pupils, equal size. NOSE: Clear with pink turbinates. THROAT: No erythema or exudates. NECK: No masses, no JVD. CHEST: No chest wall deformity. LUNGS: Equal air entry with scattered rhonchi, wheeze, diminished. CVS: S1 and S2 normal with no audible murmur, regular rhythm. ABDOMEN: No hepatosplenomegaly, normal bowel sounds, no guarding or rigidity. SKIN: No rashes CENTRAL NERVOUS SYSTEM:l patient is extremely anxious, oriented 3, no gross focal deficits. EXTREMITIES: There is no peripheral edema. No clubbing, no cyanosis. Peripheral pulses are intact. R - Labs CBC & Chem 7: 04/09/23 08:45 04/09/23 08:45 Labs: Abnormal Lab Results - Last 24 Hours (Table) 04/09/23 04/09/23 04/09/23 Range/Units 02:26 06:20 08:45 WBC 16.3 H (3.8-10.6) k/uL Neutrophils # 15.1 H (1.3-7.7) k/uL Lymphocytes # 0.6 L (1.0-4.8) k/uL Sodium (137-145) mmol/L Creatinine (0.52-1.04) mg/dL Glucose (74-99) mg/dL POC Glucose (mg/dL) 125 H 124 H (70-110) mg/dL 04/09/23 Range/Units 08:45 WBC (3.8-10.6) k/uL Neutrophils # (1.3-7.7) k/uL Lymphocytes # (1.0-4.8) k/uL Sodium 136 L (137-145) mmol/L Creatinine 0.50 L (0.52-1.04) mg/dL Glucose 167 H (74-99) mg/dL POC Glucose (mg/dL) (70-110) mg/dL Assessment and Plan Assessment: Impression: Acute on chronic hypoxemic respiratory failure secondary to an acute exacerbation of chronic obstructive pulmonary disease Acute on chronic hypercapnic respiratory failure secondary to above History of extensive reticular nodule infiltrates, possible underlying pulmonary interstitial fibrosis History of chronic tobacco dependence History of anxiety Recommendation: Discussed and reviewed the CT of the chest findings with the patient We'll continue bronchodilators Continue antibiotics Continue steroids Continue BiPAP as needed Not quite ready for discharge planning We will continue to follow Time with Patient: Less than 30
[2023-04-09 16:20] LABS: Glucose,Whole Blood 131 mg/dL (70-110)
[2023-04-09] MEDS: SERTRALINE 25 MG TAB PO SCH (17:32)
[2023-04-09 20:22] LABS: Glucose,Whole Blood 190 mg/dL (70-110)
[2023-04-09] MEDS: MONTELUKAST 10 MG TAB PO SCH (20:42)
[2023-04-10] MEDS: methylPREDNISolone SOD SUCCI 125 MG/2 ML VIAL IV SCH ×5 (00:35→23:55)
[2023-04-10 05:43] LABS: Glucose,Whole Blood 113 mg/dL (70-110)
[2023-04-10] MEDS: SYMBICORT 160-4.5 MCG INHALER INHALATION SCH ×2 (08:20→20:33)
[2023-04-10] MEDS: IPRATROPIUM-ALBUTEROL 3 ML NEB INHALATION SCH ×4 (08:21→20:33)
[2023-04-10] MEDS: SERTRALINE 25 MG TAB PO SCH (08:30)
[2023-04-10] MEDS: MULTIVITAMINS, THERA 1 EACH TAB PO SCH (08:30)
[2023-04-10] MEDS: CYANOCOBALAMIN 500 MCG TAB PO SCH (08:30)
[2023-04-10] MEDS: ENOXAPARIN 40 MG/0.4 ML SYRINGE SQ SCH (08:30)
[2023-04-10 09:21] LABS: Basophils % (A) 0 %; Eosinophils % (A) 0 %; HCT 36.7 % (34.0-46.0); HGB 11.5 gm/dL (11.4-16.0); Hypochromasia Slight; Lymphocytes # (A) 0.7 k/uL (1.0-4.8); Lymphocytes % (A) 4 %; MCH 28.7 pg (25.0-35.0); MCHC 31.2 g/dL (31.0-37.0); MCV 91.7 fL (80.0-100.0); Mean Platelet Volume 7.9; Monocytes # (A) 0.5 k/uL (0-1.0); Monocytes % (A) 3 %; Neutrophils # (A) 13.9 k/uL (1.3-7.7); Neutrophils % (A) 92 %; Platelet Count 280 k/uL (150-450); RDW 15.1 % (11.5-15.5); WBC 15.1 k/uL (3.8-10.6)
[2023-04-10 09:23] LABS: African American GFR (CKD) >90 (>60 ml/min/1.73 sqM); Anion Gap 9 mmol/L; Blood Urea Nitrogen 16 mg/dL (7-17); Calcium 8.8 mg/dL (8.4-10.2); Carbon Dioxide 29 mmol/L (22-30); Chloride 99 mmol/L (98-107); Glucose 169 mg/dL (74-99); Non-African American GFR(CKD) >90 (>60 ml/min/1.73 sqM); Sodium 137 mmol/L (137-145)
[2023-04-10 09:26] LABS: Potassium 4.8 mmol/L (3.5-5.1)
[2023-04-10 12:14] LABS: Glucose,Whole Blood 75 mg/dL (70-110)
--- NOTE | 2023-04-10 12:38 | P.PN ---
Subjective Progress Note Date: 04/10/23 Hospital Course: 52-year-old female with history of COPD presenting with acute dyspnea. In the ED, she tachycardic to 144, tachypnea to 28, blood pressure 124/88, saturating at 93% on nasal cannula, temperature or amount of oxygen not recorded in EMR. WBC 20.1, hemoglobin 13.2, sodium 136, chloride 97, glucose 66, creatinine 0.52, magnesium 1.4, troponin negative, COVID-19 test was negative. Lactic acid was 0.9. Chest x-ray shows left-sided opacity concerning for pneumonia. EKG shows sinus tachycardia. Patient was given ceftriaxone and azithromycin in the ED, as well as breathing treatment, and IV steroids. She was also given 500 mL of normal saline. Patient admitted for acute hypoxic respiratory failure in the setting of pulmonary fibrosis as well as COPD exacerbation. Likely also has community-acquired pneumonia. Chest CTA report reviewed, shows no PE, pulmonary fibrotic changes, also consolidation likely pneumonia. Subjective: She is seen and examined at bedside. No acute events overnight. He claims that breathing is better. Denies any other complaints. Pertinent positives and negatives as discussed above, a complete review of systems was performed and all other systems are negative. Vitals Signs Reviewed. General: nontoxic, no distress, appears at stated age Derm: warm, dry Head: atraumatic, normocephalic, symmetric Eyes: EOMI, no lid lag, anicteric sclera Mouth: no lip lesion, mucus membranes moist Cardiovascular: S1S2 reg, no murmur Lungs: Bilateral fine rales , scattered wheezing, no accessory muscle use supplemental oxygen Abdominal: soft, nontender to palpation, no guarding, no appreciable organomegaly Ext: no gross muscle atrophy, no edema, no contractures Neuro: CN II-XI grossly intact, no focal neuro deficits Psych: Alert, oriented, appropriate affect Data Reviewed Today: Pertinent Labs: WBC 15.1, potassium 4.8, creatinine 0.5 Assessment and Plan: Active: Acute hypoxic respiratory failure Pulmonary fibrosis, possibly exacerbation COPD exacerbation Sepsis, suspected community-acquired pneumonia Major depression -Pulmonology following -Patient currently on IV ceftriaxone -Continue bronchodilators and IV Solu-Medrol -Continue to wean oxygen -Sputum cultures pending, blood cultures pending -Legionella antigen negative -Started on Zoloft Resolved: Hypomagnesemia Hypoglycemia DVT ppx: Lovenox Code status: Full code Anticipated discharge place: Home Anticipated discharge time: 2-3 days Objective - Vital Signs Vital signs: Vital Signs Temp 98.2 F 04/10/23 08:00 Pulse 100 04/10/23 12:13 Resp 18 04/10/23 08:00 BP 137/91 04/10/23 08:00 Pulse Ox 96 04/10/23 08:20 FiO2 40 04/08/23 13:34 Intake & Output 04/09/23 04/10/23 04/10/23 18:59 06:59 18:59 Intake Total 1420 598 Balance 1420 598 Intake: Oral 1420 598 Other: Voiding Method Toilet Toilet Toilet # Voids 2 2 - Labs CBC & Chem 7: 04/10/23 08:25 04/10/23 08:25 Labs: Abnormal Lab Results - Last 24 Hours (Table) 04/09/23 04/09/23 04/10/23 Range/Units 16:17 20:21 05:41 WBC (3.8-10.6) k/uL Neutrophils # (1.3-7.7) k/uL Lymphocytes # (1.0-4.8) k/uL Creatinine (0.52-1.04) mg/dL Glucose (74-99) mg/dL POC Glucose (mg/dL) 131 H 190 H 113 H (70-110) mg/dL 04/10/23 04/10/23 Range/Units 08:25 08:25 WBC 15.1 H (3.8-10.6) k/uL Neutrophils # 13.9 H (1.3-7.7) k/uL Lymphocytes # 0.7 L (1.0-4.8) k/uL Creatinine 0.50 L (0.52-1.04) mg/dL Glucose 169 H (74-99) mg/dL POC Glucose (mg/dL) (70-110) mg/dL
[2023-04-10 16:18] LABS: Glucose,Whole Blood 125 mg/dL (70-110)
[2023-04-10] MEDS: ALPRAZolam 1 MG TAB PO PRN (18:19)
[2023-04-10 20:02] LABS: Glucose,Whole Blood 161 mg/dL (70-110)
[2023-04-10] MEDS: MONTELUKAST 10 MG TAB PO SCH (20:31)
[2023-04-11 05:42] LABS: Glucose,Whole Blood 110 mg/dL (70-110)
[2023-04-11] MEDS: methylPREDNISolone SOD SUCCI 125 MG/2 ML VIAL IV SCH ×4 (06:35→23:28)
[2023-04-11] MEDS: IPRATROPIUM-ALBUTEROL 3 ML NEB INHALATION SCH ×4 (07:34→20:48)
[2023-04-11] MEDS: SYMBICORT 160-4.5 MCG INHALER INHALATION SCH ×2 (07:34→20:48)
[2023-04-11] MEDS: SERTRALINE 25 MG TAB PO SCH (08:22)
[2023-04-11] MEDS: MULTIVITAMINS, THERA 1 EACH TAB PO SCH (08:22)
[2023-04-11] MEDS: ENOXAPARIN 40 MG/0.4 ML SYRINGE SQ SCH (08:22)
[2023-04-11] MEDS: CYANOCOBALAMIN 500 MCG TAB PO SCH (08:22)
--- NOTE | 2023-04-11 10:45 | P.PN ---
Subjective Progress Note Date: 04/11/23 Hospital Course: 52-year-old female with history of COPD presenting with acute dyspnea. In the ED, she tachycardic to 144, tachypnea to 28, blood pressure 124/88, saturating at 93% on nasal cannula, temperature or amount of oxygen not recorded in EMR. WBC 20.1, hemoglobin 13.2, sodium 136, chloride 97, glucose 66, creatinine 0.52, magnesium 1.4, troponin negative, COVID-19 test was negative. Lactic acid was 0.9. Chest x-ray shows left-sided opacity concerning for pneumonia. EKG shows sinus tachycardia. Patient was given ceftriaxone and azithromycin in the ED, as well as breathing treatment, and IV steroids. She was also given 500 mL of normal saline. Patient admitted for acute hypoxic respiratory failure in the setting of pulmonary fibrosis as well as COPD exacerbation. Likely also has community-acquired pneumonia. Chest CTA report reviewed, shows no PE, pulmonary fibrotic changes, also consolidation likely pneumonia. Currently on IV antibiotics. Oxygen requirements decreasing. Pulmonology following. Subjective: She is seen and examined at bedside. No acute events overnight. He claims that breathing is better. Denies any other complaints. Pertinent positives and negatives as discussed above, a complete review of systems was performed and all other systems are negative. Vitals Signs Reviewed. General: nontoxic, no distress, appears at stated age Derm: warm, dry Head: atraumatic, normocephalic, symmetric Eyes: EOMI, no lid lag, anicteric sclera Mouth: no lip lesion, mucus membranes moist Cardiovascular: S1S2 reg, no murmur Lungs: Bilateral fine rales , scattered wheezing, no accessory muscle use supplemental oxygen Abdominal: soft, nontender to palpation, no guarding, no appreciable organomegaly Ext: no gross muscle atrophy, no edema, no contractures Neuro: CN II-XI grossly intact, no focal neuro deficits Psych: Alert, oriented, appropriate affect Data Reviewed Today: Pertinent Labs: CBC and BMP ordered, will be reviewed when available Assessment and Plan: Active: Acute hypoxic respiratory failure Pulmonary fibrosis, possibly exacerbation COPD exacerbation Sepsis, suspected community-acquired pneumonia Major depression -Pulmonology following -Patient currently on IV ceftriaxone, day 3/5 -Continue bronchodilators and IV Solu-Medrol 60 mg every 6 hours -Continue to wean oxygen -Sputum cultures pending, blood cultures pending -Started on Zoloft 25 mg daily, no further titration as an outpatient Resolved: Hypomagnesemia Hypoglycemia DVT ppx: Lovenox Code status: Full code Anticipated discharge place: Home Anticipated discharge time: Likely tomorrow Objective - Vital Signs Vital signs: Vital Signs Temp 98.2 F 04/11/23 07:36 Pulse 78 04/11/23 08:00 Resp 18 04/11/23 08:00 BP 160/95 04/11/23 07:36 Pulse Ox 95 04/11/23 07:36 FiO2 40 04/08/23 13:34 Intake & Output 04/10/23 04/11/23 04/11/23 18:59 06:59 18:59 Intake Total 1560 480 Balance 1560 480 Intake: Oral 1560 480 Other: Voiding Method Toilet Toilet Toilet # Voids 1 3 - Labs CBC & Chem 7: 04/10/23 08:25 04/10/23 08:25 Labs: Abnormal Lab Results - Last 24 Hours (Table) 04/10/23 04/10/23 Range/Units 16:15 20:00 POC Glucose (mg/dL) 125 H 161 H (70-110) mg/dL Microbiology - Last 24 Hours (Table) 04/08/23 11:22 Blood Culture - Preliminary Blood 04/08/23 11:22 Blood Culture - Preliminary Blood
--- NOTE | 2023-04-11 11:47 | P.PN ---
Subjective Progress Note Date: 04/11/23 Principal diagnosis: Acute exacerbation of COPD This is a 52-year-old female patient with a known history of severe chronic obstructive pulmonary disease and chronic hypoxemic respiratory failure secondary to chronic tobacco dependence, anxiety. She is also noted to have chronic changes on chest x-ray and CT scans in the past. She was last seen in our office in September 2022 She was just discharged from here 02/16/2023 for COPD exacerbation. She presented back to the emergency room early this morning with worsening shortness of breath, cough and congestion. Chest x-ray reveals an area of nodular consolidation or masses in the lingular segment of the left upper lobe. Evidence of COPD and findings suggestive of pulmonary fibrosis/UIP. Previous CAT scan from August 2022 revealed extensive reticular nodule infiltrates. Probably pulmonary interstitial fibrosis. She is seen in the emergency department. Presently on BiPAP 10/5 and 36% FiO2. She remains quite anxious. She states she's had symptoms for about 2-1/2 days now. No fever or chills. No hemoptysis. White count 20.1. Hemoglobin 13.2. D-dimer 1.79. Sodium 136. Potassium 4.8. Bicarb 30. BUN 11. Creatinine 0.52. AST 28. ALT 19. Troponin negative 1. Chronic virus by PCR not detected. Arterial blood gases revealed a pO2 of 92, pCO2 48, pH 7.34. Pro-calcitonin pending. CT angiogram pending Reevaluated today on 04/09/2023, patient is slightly better today compared to yesterday, she is now on 3 L nasal cannula with O2 sats of 95%, her CT of the chest showed mostly fibrotic changes bilaterally, and questionable pneumonia/scarring in the left lower lobe, I believe the findings are mostly findings of fibrotic changes, doubt pneumonia since her pro calcitonin level was normal. Nonetheless considering the extensiveness of the process, I think we will continue antibiotics for now. Clinically the patient is improving with the present course of antibiotics steroids and bronchodilators. Intermittently on BiPAP. Continues to have leukocytosis with W Lillian of 16.3. ABG yesterday showed a pO2 of 92 pCO2 48 pH of 7.34. Basic metabolic profile is normal. Reevaluated today on 04/11/2023, patient is being followed for her COPD exacerbation, doing much better today, breathing a lot easier, hardly any pulmonary symptoms. Patient remains on 2 L nasal cannula, O2 sats is 95%. Re sophie on the same bronchodilators and steroids, dramatically better today compared to the last few days Objective - Vital Signs Vital signs: Vital Signs Temp 98.2 F 04/11/23 07:36 Pulse 76 04/11/23 11:36 Resp 18 04/11/23 08:00 BP 160/95 04/11/23 07:36 Pulse Ox 95 04/11/23 07:36 FiO2 40 04/08/23 13:34 Intake & Output 04/10/23 04/11/23 04/11/23 18:59 06:59 18:59 Intake Total 1560 480 Balance 1560 480 Intake: Oral 1560 480 Other: Voiding Method Toilet Toilet Toilet # Voids 1 3 - Exam GENERAL EXAM: Alert, anxious 52-year-old female, on 2 L nasal cannula. HEAD: Normocephalic. EYES: Normal reaction of pupils, equal size. NOSE: Clear with pink turbinates. THROAT: No erythema or exudates. NECK: No masses, no JVD. CHEST: No chest wall deformity. LUNGS: Equal air entry , diminished breath sound bilaterally no crackles or rhonchi or wheezes CVS: S1 and S2 normal with no audible murmur, regular rhythm. ABDOMEN: No hepatosplenomegaly, normal bowel sounds, no guarding or rigidity. SKIN: No rashes CENTRAL NERVOUS SYSTEM:l patient is less anxious today, no focal deficits. EXTREMITIES: There is no peripheral edema. No clubbing, no cyanosis. Peripheral pulses are intact. R - Labs CBC & Chem 7: 04/10/23 08:25 04/10/23 08:25 Labs: Abnormal Lab Results - Last 24 Hours (Table) 04/10/23 04/10/23 Range/Units 16:15 20:00 POC Glucose (mg/dL) 125 H 161 H (70-110) mg/dL Microbiology - Last 24 Hours (Table) 04/08/23 11:22 Blood Culture - Preliminary Blood 04/08/23 11:22 Blood Culture - Preliminary Blood Assessment and Plan Assessment: Impression: Acute on chronic hypoxemic respiratory failure secondary to an acute exacerbation of chronic obstructive pulmonary disease Acute on chronic hypercapnic respiratory failure secondary to above History of extensive reticular nodule infiltrates, possible underlying pulmonary interstitial fibrosis History of chronic tobacco dependence History of anxiety Recommendation: We'll continue bronchodilators Continue antibiotics Continue steroids Consider discharge planning in the next 24 hours We will continue to follow Time with Patient: Less than 30
[2023-04-11 11:56] LABS: Glucose,Whole Blood 73 mg/dL (70-110)
[2023-04-11 13:20] LABS: Basophils % (A) 0 %; Eosinophils # (A) 0.1 k/uL (0-0.7); Eosinophils % (A) 1 %; HCT 38.3 % (34.0-46.0); HGB 11.7 gm/dL (11.4-16.0); Hypochromasia Slight; Lymphocytes # (A) 0.4 k/uL (1.0-4.8); Lymphocytes % (A) 4 %; MCH 28.1 pg (25.0-35.0); MCHC 30.7 g/dL (31.0-37.0); MCV 91.6 fL (80.0-100.0); Mean Platelet Volume 8.6; Monocytes # (A) 0.1 k/uL (0-1.0); Monocytes % (A) 1 %; Neutrophils # (A) 8.6 k/uL (1.3-7.7); Neutrophils % (A) 93 %; Platelet Count 300 k/uL (150-450); RBC 4.17 m/uL (3.80-5.40); RDW 15.3 % (11.5-15.5); WBC 9.2 k/uL (3.8-10.6)
[2023-04-11 13:35] LABS: African American GFR (CKD) >90 (>60 ml/min/1.73 sqM); Anion Gap 10 mmol/L; Blood Urea Nitrogen 16 mg/dL (7-17); Calcium 8.9 mg/dL (8.4-10.2); Carbon Dioxide 29 mmol/L (22-30); Chloride 95 mmol/L (98-107); Glucose 171 mg/dL (74-99); Non-African American GFR(CKD) >90 (>60 ml/min/1.73 sqM); Potassium 4.8 mmol/L (3.5-5.1); Sodium 134 mmol/L (137-145)
[2023-04-11] MEDS: ALPRAZolam 1 MG TAB PO PRN (14:42)
[2023-04-11 16:37] LABS: Glucose,Whole Blood 102 mg/dL (70-110)
[2023-04-11] MEDS: MONTELUKAST 10 MG TAB PO SCH (19:33)
[2023-04-11 19:46] LABS: Glucose,Whole Blood 201 mg/dL (70-110)
[2023-04-11] MEDS ORDERED: DEXTROSE 50% SYRINGE 50 ML IVP PRN ×2 (20:29)
[2023-04-11] MEDS: INSULIN ASPART (NovoLOG) 100 UNIT/ML VIAL SQ SCH (20:56)
[2023-04-12] MEDS: IPRATROPIUM-ALBUTEROL 3 ML NEB INHALATION PRN (01:14)
[2023-04-12 06:08] LABS: Glucose,Whole Blood 114 mg/dL (70-110)
[2023-04-12] MEDS: INSULIN ASPART (NovoLOG) 100 UNIT/ML VIAL SQ SCH ×4 (06:10→20:28)
[2023-04-12] MEDS: methylPREDNISolone SOD SUCCI 125 MG/2 ML VIAL IV SCH ×4 (06:12→23:57)
[2023-04-12] MEDS: CYANOCOBALAMIN 500 MCG TAB PO SCH (08:22)
[2023-04-12] MEDS: SERTRALINE 25 MG TAB PO SCH (08:22)
[2023-04-12] MEDS: MULTIVITAMINS, THERA 1 EACH TAB PO SCH (08:23)
[2023-04-12] MEDS: ALPRAZolam 1 MG TAB PO PRN ×2 (08:23→20:01)
[2023-04-12] MEDS: ENOXAPARIN 40 MG/0.4 ML SYRINGE SQ SCH (08:23)
[2023-04-12] MEDS: IPRATROPIUM-ALBUTEROL 3 ML NEB INHALATION SCH ×4 (09:16→21:53)
[2023-04-12] MEDS: SYMBICORT 160-4.5 MCG INHALER INHALATION SCH ×2 (09:16→21:54)
[2023-04-12 11:34] LABS: Glucose,Whole Blood 83 mg/dL (70-110)
--- NOTE | 2023-04-12 12:07 | P.PN ---
Subjective Progress Note Date: 04/12/23 Principal diagnosis: Pneumonia. Acute exacerbation of COPD This is a 52-year-old female patient with a known history of severe chronic obstructive pulmonary disease and chronic hypoxemic respiratory failure secondary to chronic tobacco dependence, anxiety. She is also noted to have chronic changes on chest x-ray and CT scans in the past. She was last seen in our office in September 2022 She was just discharged from here 02/16/2023 for COPD exacerbation. She presented back to the emergency room early this morning with worsening shortness of breath, cough and congestion. Chest x-ray reveals an area of nodular consolidation or masses in the lingular segment of the left upper lobe. Evidence of COPD and findings suggestive of pulmonary fibrosis/UIP. Previous CAT scan from August 2022 revealed extensive reticular nodule infiltrates. Probably pulmonary interstitial fibrosis. She is seen in the emergency department. Presently on BiPAP 10/5 and 36% FiO2. She remains quite anxious. She states she's had symptoms for about 2-1/2 days now. No fever or chills. No hemoptysis. White count 20.1. Hemoglobin 13.2. D-dimer 1.79. Sodium 136. Potassium 4.8. Bicarb 30. BUN 11. Creatinine 0.52. AST 28. ALT 19. Troponin negative 1. Chronic virus by PCR not detected. Arterial blood gases revealed a pO2 of 92, pCO2 48, pH 7.34. Pro-calcitonin pending. CT angiogram pending Reevaluated today on 04/09/2023, patient is slightly better today compared to chad hernandez, she is now on 3 L nasal cannula with O2 sats of 95%, her CT of the chest showed mostly fibrotic changes bilaterally, and questionable pneumonia/scarring in the left lower lobe, I believe the findings are mostly findings of fibrotic changes, doubt pneumonia since her pro calcitonin level was normal. Nonetheless considering the extensiveness of the process, I think we will continue antibioti cs for now. Clinically the patient is improving with the present course of antibiotics steroids and bronchodilators. Intermittently on BiPAP. Continues to have leukocytosis with W Lillian of 16.3. ABG yesterday showed a pO2 of 92 pCO2 48 pH of 7.34. Basic metabolic profile is normal. Reevaluated today on 04/11/2023, patient is being followed for her COPD exacerbation, doing much better today, breathing a lot easier, hardly any pulmonary symptoms. Patient remains on 2 L nasal cannula, O2 sats is 95%. Remains on the same bronchodilators and steroids, dramatically better today compared to the last few days Progress note dated 04/12/2023. The patient is seen today in room 368. The patient is placed on Augmentin, for the next 5 days. It's 375 mg twice a day. Probably, the patient's on 2 L of oxygen by nasal cannula, and receiving saline at 10 mL an hour. Clinically, she appears stable. Labs today include a hemoglobin A1c of 5.7, and a glucose of 83. Blood cultures are negative. No new chest x-ray today. Objective - Vital Signs Vital signs: Vital Signs Temp 97.9 F 04/12/23 08:00 Pulse 104 H 04/12/23 09:30 Resp 18 04/12/23 08:00 BP 144/88 04/12/23 08:00 Pulse Ox 95 04/12/23 10:00 FiO2 40 04/08/23 13:34 Intake & Output 04/11/23 04/12/23 04/12/23 18:59 06:59 18:59 Intake Total 1095 20 10 Balance 1095 20 10 Intake: IV 20 10 Invasive Line 2 20 10 Oral 1095 Other: Voiding Method Toilet Toilet Toilet # Voids 1 2 - Exam No acute distress, oriented 3. Currently on 2 L of oxygen. No respiratory distress, or use of accessory muscles. HEENT examination is grossly unremarkable. Neck supple. Full range of motion. No adenopathy thyromegaly or neck vein distention. Cardiovascular examination reveals regular rhythm rate. S1-S2 normal. No S3 or S4. No discernible murmur noted. Heart rate is 100 bpm. Heart sounds are distant. Lungs reveal scattered rhonchi. Mild expiratory wheezes. No crackles. Breath sounds are equal bilaterally. 2 L saturation is 96%. Abdomen soft bowel sounds are heard. No masses or tenderness. Extremities are intact. No cyanosis clubbing or edema. Skin is without rash or lesion. Neurologic examination is brief but nonfocal. - Labs CBC & Chem 7: 04/11/23 12:45 04/11/23 12:45 Labs: Abnormal Lab Results - Last 24 Hours (Table) 04/11/23 04/11/23 04/11/23 Range/Units 12:45 12:45 19:45 MCHC 30.7 L (31.0-37.0) g/dL Neutrophils # 8.6 H (1.3-7.7) k/uL Lymphocytes # 0.4 L (1.0-4.8) k/uL Sodium 134 L (137-145) mmol/L Chloride 95 L (98-107) mmol/L Glucose 171 H (74-99) mg/dL POC Glucose (mg/dL) 201 H (70-110) mg/dL 04/12/23 Range/Units 06:07 MCHC (31.0-37.0) g/dL Neutrophils # (1.3-7.7) k/uL Lymphocytes # (1.0-4.8) k/uL Sodium (137-145) mmol/L Chloride (98-107) mmol/L Glucose (74-99) mg/dL POC Glucose (mg/dL) 114 H (70-110) mg/dL Microbiology - Last 24 Hours (Table) 04/08/23 11:22 Blood Culture - Preliminary Blood 04/08/23 11:22 Blood Culture - Preliminary Blood Assessment and Plan Assessment: Acute on chronic hypoxemic respiratory failure secondary to an acute exacerbation of chronic obstructive pulmonary disease. Acute on chronic hypercapnic respiratory failure secondary to above. History of extensive reticular nodule infiltrates, possible underlying pulmonary interstitial fibrosis. History of chronic tobacco dependence. History of anxiety. Plan: Plan dated 04/12/2023. The patient continues on antibiotics, bronchodilators, and corticosteroids. The patient's much improved. She remains on 2 L of oxygen. Her antibiotic is converted to Augmentin, 875 mg, twice a day, for 5 days more. No additional recommendations are made. We'll continue to follow the patient and make recommendations along the way. Prognosis is guarded. Time with Patient: Less than 30
--- NOTE | 2023-04-12 15:07 | P.PN ---
Subjective Progress Note Date: 04/12/23 (delayed charting seen at 1030) Patient is a 52-year-old female with known COPD on home O2 at night, prior tobacco dependency, and anxiety who presented to the ER for shortness of breath. In the emergency department she underwent an extensive evaluation. On arrival she was tachycardic at a rate of 144 and At a rate of 28. Laboratory analysis was remarkable for white blood cell count of 20, hemoglobin 13.2, glucose 66, magnesium 1.4. COVID-19 testing was negative. Chest x-ray showed a left-sided opacity concerning for pneumonia. Patient was admitted for further management and was started on Rocephin and Zithromax. She also received bronchodilators and IV steroids. She underwent a CT PE protocol which demonstrated possible pneumonia but no evidence of pulmonary embolism. Pulmonary was consulted. Her legionella urine antigen was negative. She did have slowly improving O2 requirements and breathing. Imaging: Computed tomography scan of the chest: Limited evaluation of segmental and subsegmental branches but no central pulmonary embolism, pulmonary fibrotic change with new left lower lobe opacity concerning for pneumonia Patient seen and examined at bedside. She feels as though her breathing is slowly getting better every day. She does not feel yet well enough to go home and she is still having significant shortness of breath when up and ambulating. She denies any nausea or vomiting. She has no primary care physician in the area and has not been consistently seeing pulmonary. Vital signs reviewed General: nontoxic, no distress, appears at stated age Cardiovascular: S1S2 reg, no murmur, positive posterior tibial pulse bilateral, Lungs: Decreased breath sounds bilaterally with faint wheezing right base , no accessory muscle use Abdominal: soft, nontender to palpation, no guarding, no appreciable organomegaly Ext: no gross muscle atrophy, no edema b/l lower extremities, no contractures Neuro: CN II-XI grossly intact, no focal neuro deficits Psych: Alert, oriented, appropriate affect Assessment/Plan: Acute exacerbation of COPD Acute on chronic hypoxic respiratory failure Pneumonia with sepsis, possible gram-negative Pulmonary fibrosis - Patient has completed Zithromax 3 days, Rocephin has been transitioned to Augmentin -Continue with Solu-Medrol 60 IV every 6 hours, Singulair 10 mg, Symbicort 2 puffs twice daily, albuterol 4 times daily and as needed -Pulmonary note reviewed: Augmentin for 5 additional days. Hyperglycemia - A1C 5.7 - SSI, follow BS Chronic/resolved Depression Hypomagnesemia Hypoglycemia Imaging: None new Data Review: Patient has been afebrile 24 hours, pulse 99, respirations 18, blood pressure 129/82, O2 sat 94% on 2 L Blood cultures negative 72 hours A1c 5.7, a.m. blood sugar 83 DVT prophylaxis: Lovenox Discussed with: Patient, nursing Anticipated discharge date: [address]: Home This dictation was prepared using [employer] voice recognition software. Though every attempt is made to correct errors during dictation some may still exist. Objective - Vital Signs Vital signs: Vital Signs Temp 98.1 F 04/12/23 12:00 Pulse 100 04/12/23 13:15 Resp 18 04/12/23 12:00 BP 129/82 04/12/23 12:00 Pulse Ox 94 L 04/12/23 12:00 FiO2 40 04/08/23 13:34 Intake & Output 04/11/23 04/12/23 04/12/23 18:59 06:59 18:59 Intake Total 1095 20 897 Balance 1095 20 897 Intake: IV 20 10 Invasive Line 2 20 10 Oral 1095 887 Other: Voiding Method Toilet Toilet Toilet # Voids 1 2 2 - Labs CBC & Chem 7: 04/11/23 12:45 04/11/23 12:45 Labs: Abnormal Lab Results - Last 24 Hours (Table) 04/11/23 04/12/23 Range/Units 19:45 06:07 POC Glucose (mg/dL) 201 H 114 H (70-110) mg/dL Microbiology - Last 24 Hours (Table) 04/08/23 11:22 Blood Culture - Preliminary Blood 04/08/23 11:22 Blood Culture - Preliminary Blood
[2023-04-12 16:32] LABS: Glucose,Whole Blood 139 mg/dL (70-110)
[2023-04-12] MEDS: AMOXIC-POT CLAV 875-125MG 1 EACH TAB PO SCH (19:55)
[2023-04-12] MEDS: MONTELUKAST 10 MG TAB PO SCH (19:55)
[2023-04-12 19:57] LABS: Glucose,Whole Blood 144 mg/dL (70-110)
[2023-04-13] MEDS: IPRATROPIUM-ALBUTEROL 3 ML NEB INHALATION PRN ×2 (00:17→04:23)
[2023-04-13] MEDS: methylPREDNISolone SOD SUCCI 125 MG/2 ML VIAL IV SCH (05:34)
[2023-04-13 05:52] LABS: Glucose,Whole Blood 111 mg/dL (70-110)
[2023-04-13] MEDS: INSULIN ASPART (NovoLOG) 100 UNIT/ML VIAL SQ SCH (05:54)
[2023-04-13] MEDS: IPRATROPIUM-ALBUTEROL 3 ML NEB INHALATION SCH ×2 (08:13→10:59)
[2023-04-13] MEDS: SYMBICORT 160-4.5 MCG INHALER INHALATION SCH (08:13)
[2023-04-13 08:16] VITALS: RESP 18
[2023-04-13 09:04] VITALS: BP 160/89; TEMP 97.8
[2023-04-13] MEDS: MULTIVITAMINS, THERA 1 EACH TAB PO SCH (09:05)
[2023-04-13] MEDS: ENOXAPARIN 40 MG/0.4 ML SYRINGE SQ SCH (09:05)
[2023-04-13] MEDS: SERTRALINE 25 MG TAB PO SCH (09:05)
[2023-04-13] MEDS: AMOXIC-POT CLAV 875-125MG 1 EACH TAB PO SCH (09:05)
[2023-04-13] MEDS: CYANOCOBALAMIN 500 MCG TAB PO SCH (09:05)
[2023-04-13] MEDS: ALPRAZolam 1 MG TAB PO PRN (09:10)
[2023-04-13 09:26] VITALS: BMI 25.5
[2023-04-13 11:01] VITALS: PULSE 101
--- NOTE | 2023-04-13 11:12 | P.PN ---
Subjective Progress Note Date: 04/13/23 Principal diagnosis: Pneumonia. Acute exacerbation of COPD This is a 52-year-old female patient with a known history of severe chronic obstructive pulmonary disease and chronic hypoxemic respiratory failure secondary to chronic tobacco dependence, anxiety. She is also noted to have chronic changes on chest x-ray and CT scans in the past. She was last seen in our office in September 2022 She was just discharged from here 02/16/2023 for COPD exacerbation. She presented back to the emergency room early this morning with worsening shortness of breath, cough and congestion. Chest x-ray reveals an area of nodular consolidation or masses in the lingular segment of the left upper lobe. Evidence of COPD and findings suggestive of pulmonary fibrosis/UIP. Previous CAT scan from August 2022 revealed extensive reticular nodule infiltrates. Probably pulmonary interstitial fibrosis. She is seen in the emergency department. Presently on BiPAP 10/5 and 36% FiO2. She remains quite anxious. She states she's had symptoms for about 2-1/2 days now. No fever or chills. No hemoptysis. White count 20.1. Hemoglobin 13.2. D-dimer 1.79. Sodium 136. Potassium 4.8. Bicarb 30. BUN 11. Creatinine 0.52. AST 28. ALT 19. Troponin negative 1. Chronic virus by PCR not detected. Arterial blood gases revealed a pO2 of 92, pCO2 48, pH 7.34. Pro-calcitonin pending. CT angiogram pending Reevaluated today on 04/09/2023, patient is slightly better today compared to cahd hernandez, she is now on 3 L nasal cannula with O2 sats of 95%, her CT of the chest showed mostly fibrotic changes bilaterally, and questionable pneumonia/scarring in the left lower lobe, I believe the findings are mostly findings of fibrotic changes, doubt pneumonia since her pro calcitonin level was normal. Nonetheless considering the extensiveness of the process, I think we will continue antibioti cs for now. Clinically the patient is improving with the present course of antibiotics steroids and bronchodilators. Intermittently on BiPAP. Continues to have leukocytosis with W Lillian of 16.3. ABG yesterday showed a pO2 of 92 pCO2 48 pH of 7.34. Basic metabolic profile is normal. Reevaluated today on 04/11/2023, patient is being followed for her COPD exacerbation, doing much better today, breathing a lot easier, hardly any pulmonary symptoms. Patient remains on 2 L nasal cannula, O2 sats is 95%. Remains on the same bronchodilators and steroids, dramatically better today compared to the last few days Progress note dated 04/12/2023. The patient is seen today in room 368. The patient is placed on Augmentin, for the next 5 days. It's 375 mg twice a day. Probably, the patient's on 2 L of oxygen by nasal cannula, and receiving saline at 10 mL an hour. Clinically, she appears stable. Labs today include a hemoglobin A1c of 5.7, and a glucose of 83. Blood cultures are negative. No new chest x-ray today. Progress note dated 04/13/2023. The patient was seen today in room 368. She remains on 2 L of oxygen. She's not receiving any IV fluids. She appears much more stable. Labs today include a glucose of 111. A chest x-ray today continues to show improvement. From our perspective, the patient could be considered for possible discharge home. Objective - Vital Signs Vital signs: Vital Signs Temp 97.8 F 04/13/23 08:00 Pulse 101 H 04/13/23 10:59 Resp 18 04/13/23 10:59 BP 160/89 04/13/23 08:00 Pulse Ox 98 04/13/23 08:13 FiO2 40 04/08/23 13:34 Intake & Output 04/12/23 04/13/23 04/13/23 18:59 06:59 18:59 Intake Total 897 250 250 Balance 897 250 250 Weight 64.41 kg Intake: IV 10 10 10 Invasive Line 2 10 10 10 Oral 887 240 240 Other: Voiding Method Toilet Toilet # Voids 2 1 - Exam No acute distress, oriented 3. Currently on 2 L of oxygen. No respiratory distress, or use of accessory muscles. HEENT examination is grossly unremarkable. Neck supple. Full range of motion. No adenopathy thyromegaly or neck vein distention. Cardiovascular examination reveals regular rhythm rate. S1-S2 normal. No S3 or S4. No discernible murmur noted. Heart rate is 93 bpm. Heart sounds are distant. Lungs reveal scattered rhonchi. Mild expiratory wheezes. No crackles. Breath sounds are equal bilaterally. 2 L saturation is 98 %. Abdomen soft bowel sounds are heard. No masses or tenderness. Extremities are intact. No cyanosis clubbing or edema. Skin is without rash or lesion. Neurologic examination is brief but nonfocal. - Labs CBC & Chem 7: 04/11/23 12:45 04/11/23 12:45 Labs: Abnormal Lab Results - Last 24 Hours (Table) 04/12/23 04/12/23 04/13/23 Range/Units 16:31 19:56 05:51 POC Glucose (mg/dL) 139 H 144 H 111 H (70-110) mg/dL Assessment and Plan Assessment: Acute on chronic hypoxemic respiratory failure secondary to an acute exacerbation of chronic obstructive pulmonary disease. Acute on chronic hypercapnic respiratory failure secondary to above. History of extensive reticular nodule infiltrates, possible underlying pulmonary interstitial fibrosis. History of chronic tobacco dependence. History of chronic anxiety. Plan: Plan dated 04/12/2023. The patient continues on antibiotics, bronchodilators, and corticosteroids. The patient's much improved. She remains on 2 L of oxygen. Her antibiotic is converted to Augmentin, 875 mg, twice a day, for 5 days more. No additional recommendations are made. We'll continue to follow the patient and make recommendations along the way. Prognosis is guarded. Plan dated 04/13/2023. The patient was converted to Augmentin 875 mg twice a day, for 5 days more. The patient's chest x-ray in our opinion shows improvement. The patient will be considered for possible discharge home. We will leave that up to the primary s ervice. Clinically, the patient's doing much better. Labs, x-rays, and medications are reviewed. Vital signs are very stable. Time with Patient: Less than 30
--- NOTE | 2023-04-13 11:29 | XR ---
EXAMINATION TYPE: XR chest 1V DATE OF EXAM: 04/13/2023 COMPARISON: 04/19/2023 HISTORY: Abnormal x-ray TECHNIQUE: Single frontal view of the chest is obtained. FINDINGS: Heart normal size. Aorta and pulmonary vasculature within normal limits. Patchy bibasilar opacities persist, slightly worsened now on the right. Some biapical opacities also persist, probably pleural parenchymal scarring. Hyperinflation. No pleural effusion. Somewhat focal opacity right supr ahilar region. Follow-up to ensure clearance. Suspect chronic underlying interstitial lung disease. IMPRESSION: 1. COPD with improving basilar infiltrates. 2. Right suprahilar density is stable.
--- NOTE | 2023-04-13 13:36 | P.DS ---
Providers Date of admission: 04/08/23 11:16 Expected date of discharge: 04/13/23 Attending physician: Sola Cody DO Consults: 04/08/23 11:16 Consult Physician Routine Consulting Provider: Elen Byrne Consult Reason/Comments: dyspnea Do you want consulting provider notified?: Yes Primary care physician: Stated None Hospital Course: Discharge Diagnosis: Acute exacerbation of COPD Acute on chronic hypoxic respiratory failure Pneumonia with sepsis, possible gram-negative Pulmonary fibrosis Hyperglycemia Depression Hypomagnesemia Hypoglycemia Hospital Course: Patient is a 52-year-old female with known COPD on home O2 at night, prior tobacco dependency, and anxiety who presented to the ER for shortness of breath. In the emergency department she underwent an extensive evaluation. On arrival she was tachycardic at a rate of 144 and At a rate of 28. Laboratory analysis was remarkable for white blood cell count of 20, hemoglobin 13.2, glucose 66, magnesium 1.4. COVID-19 testing was negative. Chest x-ray showed a left-sided opacity concerning for pneumonia. Patient was admitted for further management and was started on Rocephin and Zithromax. She also received bronchodilators and IV steroids. She underwent a CT PE protocol which demonstrated possible pneumonia but no evidence of pulmonary embolism. Pulmonary was consulted. Her legionella urine antigen was negative. She did have slowly improving O2 requirements and breathing. Her breathing was near baseline, she was cleared by pulmonary and determined stable for discharge. Follow-up: Patient will complete an additional 4 days of Augmentin and 5 days of prednisone. Her home Symbicort, albuterol, and DuoNeb nebulizer solution were r efilled. She will establish with a primary care physician. She'll follow with Dr. Fallon on 04/23/23 at 2:30 PM. Patient seen and examined at bedside. Breathing near baseline, feeling well, wants to go home. Vital signs reviewed and stable. General: nontoxic, no distress, appears at stated age Cardiovascular: S1S2 reg, no murmur, positive posterior tibial pulse bilateral, Lungs: CTA bilateral, no rhonchi, no rales , no accessory muscle use Abdominal: soft, nontender to palpation, no guarding, no appreciable organomegaly Ext: no gross muscle atrophy, no edema b/l lower extremities, no contractures Neuro: CN II-XI grossly intact, no focal neuro deficits Psych: Alert, oriented, appropriate affect A total of 35 minutes of time were spent preparing this complex discharge summary. Patient was discharged on 04/13/23. This dictation was prepared using [employer] voice recognition software. Though every attempt is made to correct errors during dictation some may still exist. Patient Condition at Discharge: Serious Plan - Discharge Summary Discharge Rx Participant: No New Discharge Prescriptions: New Sertraline [Zoloft] 25 mg PO DAILY #30 tab Amoxic-Pot Clav 875-125Mg [Augmentin 875-125] 1 each PO Q12HR #8 tab predniSONE [Deltasone] 60 mg PO DAILY #15 tab Continue Multivit-Min/FA/Lycopen/Lutein [Centrum Silver Tablet] 1 tab PO DAILY Ipratropium-Albuterol Nebulize [Duoneb 0.5 mg-3 mg/3 ml Soln] 3 ml INHALATION RT-QID PRN #120 each PRN Reason: Shortness Of Breath Budesonide-Formot 160-4.5 Mcg [Symbicort 160-4.5 Mcg Inhaler] 2 puff INHALATION RT-BID #1 each Albuterol Inhaler [Ventolin Hfa Inhaler] 2 puff INHALATION RT-Q4H PRN #1 each PRN Reason: Shortness Of Breath Montelukast [Singulair] 10 mg PO HS Cyanocobalamin (Vitamin B-12) [Vitamin B-12] 1,000 mcg PO DAILY Discontinued ALPRAZolam [Xanax] 1 mg PO BID PRN PRN Reason: Anxiety Albuterol Nebulized [Ventolin Nebulized] 2.5 mg INHALATION RT-Q4H PRN PRN Reason: Shortness Of Breath Discharge Medication List Montelukast [Singulair] 10 mg PO HS 08/17/22 [History] Cyanocobalamin (Vitamin B-12) [Vitamin B-12] 1,000 mcg PO DAILY 02/11/23 [History] Multivit-Min/FA/Lycopen/Lutein [Centrum Silver Tablet] 1 tab PO DAILY 02/11/23 [History] Albuterol Inhaler [Ventolin Hfa Inhaler] 2 puff INHALATION RT-Q4H PRN #1 each 04/13/23 [Rx] Amoxic-Pot Clav 875-125Mg [Augmentin 875-125] 1 each PO Q12HR #8 tab 04/13/23 [Rx] Budesonide-Formot 160-4.5 Mcg [Symbicort 160-4.5 Mcg Inhaler] 2 puff INHALATION RT-BID #1 each 04/13/23 [Rx] Ipratropium-Albuterol Nebulize [Duoneb 0.5 mg-3 mg/3 ml Soln] 3 ml INHALATION RT-QID PRN #120 each 04/13/23 [Rx] Sertraline [Zoloft] 25 mg PO DAILY #30 tab 04/13/23 [Rx] predniSONE [Deltasone] 60 mg PO DAILY #15 tab 04/13/23 [Rx] Follow up Appointment(s)/Referral(s): Choco Fallon DO [Doctor of Osteopathic Medicine] - 04/23/23 2:30 pm (with ) None,Stated [Primary Care Provider] - 1-2 days (Patient to use list included renetta gardner to establish PCP ) Activity/Diet/Wound Care/Special Instructions: Activity: As tolerated Diet: Regular Special Instructions: Take medication as prescribed Discharge/Stand Alone Forms: Area PCPs Discharge Disposition: HOME SELF-CARE
== END 2023-04-13 13:12 | disposition home or self-care (01) | DRG 871 ==
LOC: EC 09:07 → 3SCARD 11:16
PROVIDERS: ADMIT Internal Medicine; ATTEND Internal Medicine
DX: A41.50 Gram-negative sepsis, unspecified (principal); J15.6 Pneumonia due to other Gram-negative bacteria; J96.22 Acute and chronic respiratory failure with hypercapnia; J96.21 Acute and chronic respiratory failure with hypoxia; J44.0 Chronic obstructive pulmonary disease with (acute) lower respiratory infection; J44.1 Chronic obstructive pulmonary disease with (acute) exacerbation; J84.10 Pulmonary fibrosis, unspecified; F41.9 Anxiety disorder, unspecified; F32.9 Major depressive disorder, single episode, unspecified; E83.42 Hypomagnesemia; E16.2 Hypoglycemia, unspecified; Z20.822 Contact with and (suspected) exposure to COVID-19; Z87.891 Personal history of nicotine dependence; Z28.310 Unvaccinated for COVID-19; Z79.899 Other long term (current) drug therapy; Z99.81 Dependence on supplemental oxygen; Z79.51 Long term (current) use of inhaled steroids
CPT/HCPCS: 36415; 36600; 71045; 71046; 71275; 80048; 80053; 82805; 83036; 83605; 83735; 84145; 84484; 85025; 85379; 85610; 85730; 87040; 87449; 87635; 93005; 94640; 94660; 94760; 96365; 96366; 96367; 96375; 96376; 99291

== ENCOUNTER 2025-01-29 14:18 | Emergency (ER) | payer MEDICARE, OTHER ==
[2025-01-29 14:24] VITALS: RESP 20; TEMP 97.9
--- NOTE | 2025-01-29 15:13 | ED ---
General Adult HPI - General Chief complaint: Fall Stated complaint: Fall-L arm/foot injury Time Seen by Provider: 01/29/25 14:27 Source: patient, RN notes reviewed Mode of arrival: ambulatory Limitations: no limitations - History of Present Illness Initial comments: Patient is a 54-year-old female present to the emergency department with concerns for patient was walking down steps and fell down the majority of steps that is less than a full flight. Patient has discomfort on most of her left side. No head injury or loss of consciousness. No neck pain. No chest pain or dyspnea. No abdominal pain. Patient has discomfort left arm and left leg. Some discomfort right leg and lower back as well. - Related Data Home Medications Medication Instructions Recorded Confirmed Montelukast [Singulair] 10 mg PO HS 08/17/22 04/08/23 Cyanocobalamin (Vitamin B-12) 1,000 mcg PO DAILY 02/11/23 04/08/23 [Vitamin B-12] Multivit-Min/FA/Lycopen/Lutein 1 tab PO DAILY 02/11/23 04/08/23 [Centrum Silver Tablet] Previous Rx's Medication Instructions Recorded Albuterol Inhaler [Ventolin Hfa 2 puff INHALATION RT-Q4H PRN #1 04/13/23 Inhaler] each Amoxic-Pot Clav 875-125Mg 1 each PO Q12HR #8 tab 04/13/23 [Augmentin 875-125] Budesonide-Formot 160-4.5 Mcg 2 puff INHALATION RT-BID #1 each 04/13/23 [Symbicort 160-4.5 Mcg Inhaler] Ipratropium-Albuterol Nebulize 3 ml INHALATION RT-QID PRN #120 04/13/23 [Duoneb 0.5 mg-3 mg/3 ml Soln] each Sertraline [Zoloft] 25 mg PO DAILY #30 tab 04/13/23 predniSONE [Deltasone] 60 mg PO DAILY #15 tab 04/13/23 Allergies Allergy/AdvReac Type Severity Reaction Status Date / Time No Known Allergies Allergy Verified 04/08/23 10:54 Review of Systems ROS Statement: Those systems with pertinent positive or pertinent negative responses have been documented in the HPI. ROS Other: All systems not noted in ROS Statement are negative. Constitutional: Denies: fever Eyes: Denies: eye pain ENT: Denies: ear pain Respiratory: Denies: dyspnea Cardiovascular: Denies: chest pain Endocrine: Denies: fatigue Gastrointestinal: Denies: abdominal pain Musculoskeletal: Reports: as per HPI Neurological: Denies: headache, weakness, confusion Past Medical History Past Medical History: Asthma, COPD, Hyperlipidemia, Hypertension History of Any Multi-Drug Resistant Organisms: None Reported Past Surgical History: Adenoidectomy, Tonsillectomy, Tubal Ligation Past Anesthesia/Blood Transfusion Reactions: No Reported Reaction Past Psychological History: Anxiety Smoking Status: Former smoker General Exam Limitations: no limitations General appearance: alert, in no apparent distress Head exam: Present: atraumatic, normocephalic Eye exam: Present: normal appearance, PERRL, EOMI ENT exam: Present: normal oropharynx Neck exam: Present: normal inspection. Absent: tenderness Respiratory exam: Present: normal lung sounds bilaterally Cardiovascular Exam: Present: regular rate, normal rhythm Expanded Peripheral pulses: 2+: Posterior Tibialis (R), Posterior Tibialis (L) GI/Abdominal exam: Present: soft. Absent: distended, tenderness, guarding, rebound, rigid Extremities exam: Present: tenderness (Left proximal humerus, left mid forearm, right and left proximal tib-fib. Left ankle. Bilateral toes. Mid lumbar. Distally all extremities are neurovascular intact.) Back exam: Present: tenderness (Mid lumbar) Neurological exam: Present: alert, oriented X3, CN II-XII intact. Absent: motor sensory deficit Psychiatric exam: Present: normal affect, normal mood Skin exam: Present: normal color Course Vital Signs 01/29/25 14:20 Temperature 97.9 F Pulse Rate 104 H Respiratory 20 Rate Blood Pressure 144/88 O2 Sat by Pulse 93 L Oximetry Medical Decision Making - Medical Decision Making Was pt. sent in by a medical professional or institution (, PA, ENGINEER CHIEF, urgent care, hospital, or senior living...) When possible be specific @ -No Did you speak to anyone other than the patient for history (EMS, parent, family, police, friend...)? What history was obtained from this source @ -Son is present helps provide history including height of the steps in the fall Did you review nursing and triage notes (agree or disagree)? Why? @ -I reviewed and agree with nursing and triage notes Were old charts reviewed (outside hosp., previous admission, EMS record, old EKG, old radiological studies, urgent care reports/EKG's, senior living records)? Report findings @ -No old charts were reviewed Differential Diagnosis (chest pain, altered mental status, abdominal pain women, abdominal pain men, vaginal bleeding, weakness, fever, dyspnea, syncope, headache, dizziness, GI bleed, back pain, seizure, CVA, palpatations, mental health, musculoskeletal)? @ -Differential Musculoskeletal Muscular strain, contusion, ligament sprain, fracture, arthritis, septic arthritis, bursitis, cellulitis, muscle spasm, nerve compression, DVT, arterial occlusion, herpes zoster, electrolyte abnormality, tumor.... This is not meant to be in all inclusive list EKG interpreted by me (3pts min.). @ -As above X-rays interpreted by me (1pt min.). @ -X-rays interpreted by myself did not reveal acute traumatic injury of the lumbar spine, left humerus, left forearm, bilateral tib-fib, left ankle or bilateral feet CT interpreted by me (1pt min.). @ -None done U/S interpreted by me (1pt. min.). @ -None done What testing was considered but not performed or refused? (CT, X-rays, U/S, labs)? Why? @ -None What meds were considered but not given or refused? Why? @ -None Did you discuss the management of the patient with other professionals (professionals i.e. , PA, ENGINEER CHIEF, lab, RT, psych nurse, addiction social worker, joint filler, teacher, forestry technical officer, case consultant)? Give summary @ -No Was smoking cessation discussed for >3mins.? @ -No Was critical care preformed (if so, how long)? @ -No Were there social determinants of health that impacted care today? How? (Homelessness, low income, unemployed, alcoholism, drug addiction, transportation, low edu. Level, literacy, decrease access to med. care, [facility], rehab)? @ -No Was there de-escalation of care discussed even if they declined (Discuss DNR or withdrawal of care, Hospice)? DNR status @ -No What co-morbidities impacted this encounter? (DM, HTN, Smoking, COPD, CAD, Cancer, CVA, ARF, Chemo, Hep., AIDS, mental health diagnosis, sleep apnea, morbid obesity)? @ -None Was patient admitted / discharged? Hospital course, mention meds given and route, prescriptions, significant lab abnormalities, going to OR and other pertinent info. @ -Patient presents with trip and fall with multiple areas of concern. No evidence of fracture. Patient updated. Patient will be discharged with follow- up with primary care physician. Undiagnosed new problem with uncertain prognosis? @ -No Drug Therapy requiring intensive monitoring for toxicity (Heparin, Nitro, Insulin, Cardizem)? @ -No Were any procedures done? @ -No Diagnosis/symptom? @ -Fall, multiple contusions Acute, or Chronic, or Acute on Chronic? @ -Acute, acute Uncomplicated (without systemic symptoms) or Complicated (systemic symptoms)? @ -Default Side effects of treatment? @ -No Exacerbation, Progression, or Severe Exacerbation? @ -No Poses a threat to life or bodily function? How? (Chest pain, USA, MS, pneumonia, PE, COPD, DKA, ARF, appy, cholecystitis, CVA, Diverticulitis, Homicidal, Suicidal, threat to staff... and all critical care pts) @ -No Disposition Clinical Impression: Fall, Multiple contusions Disposition: HOME SELF-CARE Condition: Stable Instructions (If sedation given, give patient instructions): Contusion in Adults (ED), Fall Prevention (ED) Additional Instructions: [id number] Tylenol or Motrin as needed. Please do follow-up with your primary care physician in the next day or 2 for recheck. Return for weakness, difficulty breathing, abdominal pain, worsening or changing symptoms or any other concerns. Is patient prescribed a controlled substance at d/c from ED?: No Referrals: Nonstaff,Physician [Primary Care Provider] - 1-2 days Forms: Area PCPs Time of Disposition: 17:22
[2025-01-29] MEDS: MORPHINE SULFATE 4 MG/ML SYRINGE IM STA (15:24)
--- NOTE | 2025-01-29 16:35 | XR ---
EXAMINATION TYPE: XR lumbar spine 2 or 3V DATE OF EXAM: 01/29/2025 4:32 PM COMPARISON: None CLINICAL INDICATION: Female, 54 years old with history of fall; PHH, pain TECHNIQUE: XR lumbar spine 2 or 3V - Frontal, lateral and coned in L5-S1 lateral views of the spine. FINDINGS: No evidence of any acute osseous pathology. No evidence of loss of vertebral body height i s seen. There is normal alignment of the lumbar vertebral bodies. Scattered disc space narrowing. Mul tilevel marginal osteophyte formation throughout the visualized spine. There is facet joint arthropat hy throughout the spine. Scattered at least mild neural foraminal stenosis. Tubal ligation clips pres ent. IMPRESSION: 1. No acute fracture. 2. Mild multilevel disc degeneration. [facility], , 01/29/2025 4:33 PM
--- NOTE | 2025-01-29 16:37 | XR ---
EXAMINATION TYPE: XR tibia fibula bilateral DATE OF EXAM: 01/29/2025 4:33 PM COMPARISON: None CLINICAL INDICATION: Female, 54 years old with history of fall; PHH, pain TECHNIQUE: XR tibia fibula bilateral; examined in AP and lateral projections. FINDINGS: No evidence of any acute osseous pathology, joint dislocation, or soft tissue swelling is n oted. Consolidation in the distal left fibula possibly representing prior ligamentous injury or fracture. IMPRESSION: 1. No evidence of acute fracture bilaterally. 2. Remote appearing fracture or ligamentous injury of the distal fibula. [facility], , 01/29/2025 4:35 PM
--- NOTE | 2025-01-29 16:40 | XR ---
EXAMINATION TYPE: XR ankle complete LT DATE OF EXAM: 01/29/2025 4:32 PM COMPARISON: Same day CLINICAL INDICATION: Female, 54 years old with history of fall; PHH, pain TECHNIQUE: XR ankle complete LT; frontal, lateral and oblique projections. FINDINGS: Cortical irregularity of the distal fibula possibly due to prior ligamentous injury or frac ture. There is no evidence of acute osseous pathology. No evidence of subluxation or dislocation. Kager's fat pad is intact. No radiopaque foreign bodies are identified. IMPRESSION: 1. No evidence of acute fracture. 2. Remote appearing injury of the distal fibula either ligamentous or prior fracture. [facility], , 01/29/2025 4:37 PM
--- NOTE | 2025-01-29 16:42 | XR ---
EXAMINATION TYPE: XR humerus LT DATE OF EXAM: 01/29/2025 4:33 PM COMPARISON: None CLINICAL INDICATION: Female, 54 years old with history of fall, pain TECHNIQUE: XR humerus LT examined in frontal and lateral projections. FINDINGS: No evidence of acute osseous pathology, joint dislocation, or soft tissue swelling. The rem aining portions of the visualized chest are unremarkable. IMPRESSION: No acute osseous pathology. [facility], , 01/29/2025 4:39 PM
--- NOTE | 2025-01-29 16:44 | XR ---
EXAMINATION TYPE: XR foot complete bilateral DATE OF EXAM: 01/29/2025 4:33 PM COMPARISON: None CLINICAL INDICATION: Female, 54 years old with history of fall, pain TECHNIQUE: XR foot complete bilateral examined in the AP, oblique, and lateral projections. FINDINGS: No evidence of any acute osseous pathology. Multifocal degeneration changes throughout the joints of the foot with osteophyte formation and joint space narrowing. IMPRESSION: 1. No evidence of acute fracture. 2. Multifocal degeneration changes throughout the joints of the foot. [facility], , 01/29/2025 4:42 PM
--- NOTE | 2025-01-29 16:44 | XR ---
EXAMINATION TYPE: XR forearm LT DATE OF EXAM: 01/29/2025 4:33 PM COMPARISON: None CLINICAL INDICATION: Female, 54 years old with history of fall; PHH, pain TECHNIQUE: XR forearm LT; forearm was examined in AP and lateral projections. FINDINGS: No acute osseous pathology, soft tissue swelling or joint dislocations are seen. IMPRESSION: No evidence of acute fracture. [facility], , 01/29/2025 4:42 PM
[2025-01-29 17:34] VITALS: BP 136/75; PULSE 94
[2025-01-29] MEDS: ACET/COD 300 MG/30 MG STARTER PACK 6 TAB BTL PO STA (17:48)
== END 2025-01-29 17:48 | disposition home or self-care (01) ==
LOC: EC 14:18
DX: S30.0XXA Contusion of lower back and pelvis, initial encounter (principal); S40.022A Contusion of left upper arm, initial encounter; S50.12XA Contusion of left forearm, initial encounter; S90.02XA Contusion of left ankle, initial encounter; S80.12XA Contusion of left lower leg, initial encounter; S80.11XA Contusion of right lower leg, initial encounter; S90.122A Contusion of left lesser toe(s) without damage to nail, initial encounter; S90.121A Contusion of right lesser toe(s) without damage to nail, initial encounter; Z87.891 Personal history of nicotine dependence; W10.9XXA Fall (on) (from) unspecified stairs and steps, initial encounter
CPT/HCPCS: 73630; 73590; 72100; 73060; 73090; 73610; 99283; 96372; J2270